=== PATIENT | female | born 1990 | race Caucasian/White ===

== ENCOUNTER 2016-04-22 00:42 | Emergency (ER) | payer BC, SELFPAY ==
[~2016-04-22] VITALS: Ht 165.1 cm; Wt 57.2 kg
[2016-04-22] MEDS ORDERED: [UNRECOGNIZED DRUG - OTHER] (01:07)
[2016-04-22] MEDS ORDERED: WATETAB PO (01:08)
[2016-04-22] MEDS ORDERED: LIDO1SOL7 OR (02:22)
[2016-04-22] MEDS ORDERED: PRED20TA PO (02:22)
[2016-04-22] MEDS ORDERED: AMOX500C PO (02:22)
[2016-04-22] MEDS: AMOXICILLIN 500 MG CAP PO ONE (02:40)
[2016-04-22 02:51] VITALS: BP 114/63
== END 2016-04-22 02:58 | disposition home or self-care (01) ==
LOC: M ED 02:45
DX: J04.0 Acute laryngitis (principal)

== ENCOUNTER → 2016-11-10 | Outpatient (CLI) | payer OTHER ==
[~2016-11-10] MED LIST: AMOX500C PO; LIDO1SOL7 OR; PRED20TA PO; WATETAB PO; [UNRECOGNIZED DRUG - OTHER]
[2016-11-10 09:58] LABS: MEAN CORPUSCULAR HEMOGLOBIN 30.5 pg (27.0-33.0); MEAN CORPUSCULAR HGB CONC 33.8 g/dl (32.0-36.5); MEAN CORPUSCULAR VOLUME 90.3 fl (80.0-96.0); RED CELL DISTRIBUTION WIDTH 11.9 % (11.5-14.5); WHITE BLOOD COUNT 4.3 10^3/uL (4.0-10.0)
[2016-11-10 10:44] LABS: ALBUMIN 4.1 GM/DL (3.2-5.2); ALBUMIN/GLOBULIN RATIO 1.28 (1.00-1.93); ALKALINE PHOSPHATASE 54 U/L (45-117); ALT/SGPT 14 U/L (12-78); ANION GAP 7 MEQ/L (8-16); AST/SGOT 9 U/L (15-37); BILIRUBIN,TOTAL 0.6 MG/DL (0.2-1.0); BLOOD UREA NITROGEN 10 MG/DL (7-18); CALCIUM LEVEL 9.1 MG/DL (8.5-10.1); CARBON DIOXIDE LEVEL 25 MEQ/L (21-32); CHLORIDE LEVEL 107 MEQ/L (98-107); CHOLESTEROL LEVEL 197 MG/DL (<200); CREATININE FOR GFR 0.71 MG/DL (0.55-1.02); GLOMERULAR FILTRATION RATE > 60.0 (>60); GLUCOSE, FASTING 83 MG/DL (70-105); POTASSIUM SERUM 4.2 MEQ/L (3.5-5.1); SODIUM LEVEL 139 MEQ/L (136-145); TOTAL PROTEIN 7.3 GM/DL (6.4-8.2); TRIGLYCERIDES LEVEL 38 MG/DL (<150)
== END ==
LOC: M LAB 09:00
PROVIDERS: ATTEND Family Medicine
DX: D64.9 Anemia, unspecified (principal); R53.83 Other fatigue

== ENCOUNTER 2017-01-17 08:45 | Emergency (ER) | payer OTHER ==
[~2017-01-17] VITALS: Ht 165.1 cm; Wt 56.0 kg
[2017-01-17] MEDS ORDERED: DIFL150T PO (09:01)
[2017-01-17] MEDS ORDERED: XANA1TAB2 PO (09:01)
[2017-01-17 09:39] LABS: BASO # 0.1 10^3/uL (0.0-0.2); BASO % 0.9 % (0.0-1.0); EOS # 0.1 10^3/uL (0.0-0.50); EOS % 1.6 % (0.0-3.0); IMMATURE GRANULOCYTE % 0.4 % (0-0); LYMPH # 1.6 10^3/uL (1.5-6.5); LYMPH % 29.9 % (24.0-44.0); MEAN CORPUSCULAR HEMOGLOBIN 30.9 pg (27.0-33.0); MEAN CORPUSCULAR HGB CONC 33.6 g/dl (32.0-36.5); MEAN CORPUSCULAR VOLUME 92.2 fl (80.0-96.0); MONO # 0.6 10^3/uL (0.0-0.8); NEUTROPHILS # 3.1 10^3/uL (1.8-7.7); NEUTROPHILS % 57.2 % (36.0-66.0); PLATELET COUNT, AUTOMATED 232 10^3/uL (150-450); RED CELL DISTRIBUTION WIDTH 12.5 % (11.5-14.5); WHITE BLOOD COUNT 5.5 10^3/uL (4.0-10.0)
[2017-01-17 09:43] LABS: CONTROL LINE UCG INT CTR LINE PRESENT
[2017-01-17 10:24] LABS: ALBUMIN 3.8 GM/DL (3.2-5.2); ALBUMIN/GLOBULIN RATIO 0.95 (1.00-1.93); ALKALINE PHOSPHATASE 67 U/L (45-117); ALT/SGPT 15 U/L (12-78); AMYLASE 45 U/L (25-115); ANION GAP 4 MEQ/L (8-16); AST/SGOT 8 U/L (7-37); BILIRUBIN,DIRECT 0.1 MG/DL (0.0-0.2); BILIRUBIN,TOTAL 0.4 MG/DL (0.2-1.0); BLOOD UREA NITROGEN 11 MG/DL (7-18); CALCIUM LEVEL 8.9 MG/DL (8.5-10.1); CARBON DIOXIDE LEVEL 30 MEQ/L (21-32); CHLORIDE LEVEL 104 MEQ/L (98-107); CREATININE FOR GFR 0.62 MG/DL (0.55-1.02); GLOMERULAR FILTRATION RATE > 60.0 (>60); GLUCOSE, FASTING 79 MG/DL (70-105); POTASSIUM SERUM 4.2 MEQ/L (3.5-5.1); SODIUM LEVEL 138 MEQ/L (136-145); TOTAL PROTEIN 7.8 GM/DL (6.4-8.2)
--- NOTE | 2017-01-17 10:54 | REP ---
Limited abdominal wall ultrasound: 01/17/2017. Clinical history: Umbilical hernia. The patient had hernia mesh placed 1 year ago with umbilical region. Findings: The exam is quite limited due to inability to penetrate the mesh for hernia repair. There is no gross hernia seen. A slightly hyperechoic 9 x 5 x 6 mm area is seen in the umbilical region with shadowing of mass deep to it noted. There is no bowel herniation in this region. This could be just postsurgical change versus other. Impression: 1. Very limited examination. Patient with mesh placed during umbilical hernia surgery 1 year ago and slightly hyperechoic 9 x 5 x 6 mm area in the umbilicus with the mesh deep to it. This causes shadowing and limited evaluation. It could be just some postoperative change. There is no peristalsis in this slightly hyperechoic area. No definite bowel herniation currently. Signed by Magdiel Dunaway MD 01/18/2017 07:09 P
--- NOTE | 2017-01-17 11:10 | REP ---
PELVIC ULTRASOUND AND ENDOVAGINAL PROBE ULTRASOUND: 01/17/2017 CLINICAL HISTORY: Left-sided pelvic pain monthly with periods for 4 years. Transabdominal and vaginal probes were utilized. The bladder measured 8.9 x 6 x 4.2 cm. The uterus is anteverted and is 9 x 4.1 x 5.3 cm. It has a central endometrial echogenic stripe, which appears fairly homogeneous in thickness of 9 mm is seen. No fluid in the endometrial cavity or endocervical canal. No uterine mass or contour abnormality. The right ovary is 2.7 x 1.7 x 1.6 cm. It shows Doppler resistive index as 0.59 with normal forward diastolic flow. There is no mass involving the right ovary, nodule, cyst or adjacent fluid. There is trace amount of fluid in the cul-de-sac and in the endocervical canal. The left ovary 3.3 x 2.2 x 2.6 cm. It also shows normal Doppler tracing with resistive index 0.67 . In that left ovary is a 1.8 x 1.6 x 1.2 cm finding consistent with a hemorrhagic follicle. There are no other significant findings. IMPRESSION: 1. Hemorrhagic follicle left ovary 1.8 x 1.6 cm. Trace amount of free fluid in the cul-de-sac. Both ovaries otherwise normal size and echogenicity. 2. The uterus anteverted, not enlarged with normal endometrial echogenic stripe, thickness of 9 mm and trace fluid in the endocervical canal. 3. Both ovaries show normal Doppler tracings and the right ovary without mass or cyst. Signed by Magdiel Dunaway MD 01/18/2017 07:16 P
[2017-01-17 11:23] VITALS: BP 101/67
--- NOTE | 2017-01-19 08:12 | ED PDOC ---
Post-Departure Follow-Up radiology report faxed to Kelly Awad MD Jan 19, 2017 08:12
== END 2017-01-17 11:22 | disposition home or self-care (01) ==
LOC: M ED 08:45
DX: R10.33 Periumbilical pain (principal); N83.02 Follicular cyst of left ovary; R11.2 Nausea with vomiting, unspecified; R19.7 Diarrhea, unspecified; F41.9 Anxiety disorder, unspecified; Z79.899 Other long term (current) drug therapy; Z79.2 Long term (current) use of antibiotics

== ENCOUNTER → 2017-02-03 | Outpatient (CLI) | payer OTHER ==
[~2017-02-03] MED LIST changes: +CIPR500T19 PO; +DIFL150T PO; +FLAG500T PO; +FLUC150T PO; +GASTROGRAFIN SOLUTION 30ML (Q9963) As Ordered ONE; +ISOVUE-370 76% 100ML VIAL (Q9967) As Ordered ONE; +NORCOTAB PO; +REGL10TA6 PO; +XANA1TAB2 PO; +XANA3TAB PO
--- NOTE | 2017-02-04 05:52 | REP ---
PRE- AND POST CT OF THE ABDOMEN AND PELVIS: CLINICAL: History of umbilical hernia repair with periumbilical pain, evaluate for recurrence. COMPARISON: None. TECHNIQUE: Axial contrast enhanced images from the lung bases to the pubic symphysis using oral (per protocol) and 100 mL Isovue 370 intravenous contrast material with pre-contrast images of the abdomen as well as coronal and sagittal reformations. FINDINGS: Lung bases are clear. Visualized heart and pericardium normal. Liver, spleen, pancreas, gallbladder, bilateral adrenal glands and kidneys are normal. The enteric system is without obstruction or acute inflammatory process and a normal terminal ileum and appendix are identified in the right lower quadrant. Pelvis demonstrates normal bladder and age appropriate uterus/adnexa. No pelvic fluid or ascites. No free air. No adenopathy. No mass lesion. Small amount of granulation tissue is identified likely related to prior umbilical hernia repair. There is no new hernia, fluid collection or significant abnormality in the periumbilical region. Vasculature including abdominal aorta and branch vessels appear normal. Surrounding musculoskeletal structures are intact. IMPRESSION: 1. Small amount of granulation tissue in the periumbilical region consistent with prior umbilical hernia repair. No recurrent hernia, fluid collection or abnormality identified in the periumbilical region. 2. Remainder of the abdomen and pelvis appear normal. Signed by Otto Ramirez MD 02/05/2017 08:46 A
== END ==
LOC: M RAD 08:17
PROVIDERS: ATTEND Surgery
DX: K42.9 Umbilical hernia without obstruction or gangrene (principal)
CPT/HCPCS: 74178; Q9963; Q9967

== ENCOUNTER 2017-02-07 11:29 | Emergency (ER) | payer OTHER ==
[2017-02-07] MEDS: NS 500 ML IV (11:45)
[2017-02-07] MEDS: ONDANSETRON 4MG/2ML VIAL (J2405) IV (12:00)
[2017-02-07 12:03] LABS: BASO % 0.2 % (0.0-1.0); EOS % 0.1 % (0.0-3.0); IMMATURE GRANULOCYTE % 0.2 % (0-0); LYMPH # 0.7 10^3/uL (1.5-6.5); LYMPH % 8.2 % (24.0-44.0); MEAN CORPUSCULAR HGB CONC 34.7 g/dl (32.0-36.5); MEAN CORPUSCULAR VOLUME 89.3 fl (80.0-96.0); MONO # 0.7 10^3/uL (0.0-0.8); MONO % 8.5 % (0.0-5.0); NEUTROPHILS # 7.1 10^3/uL (1.8-7.7); NEUTROPHILS % 82.8 % (36.0-66.0); PLATELET COUNT, AUTOMATED 243 10^3/uL (150-450); RED CELL DISTRIBUTION WIDTH 12.5 % (11.5-14.5); WHITE BLOOD COUNT 8.6 10^3/uL (4.0-10.0)
[2017-02-07 12:27] LABS: CONTROL LINE HCG INT CTR LINE PRESENT
[2017-02-07] MEDS ORDERED: ISOVUE-370 76% 100ML VIAL (Q9967) As Ordered (12:33)
[2017-02-07 12:35] LABS: LACTIC ACID SEPSIS PROTOCOL 1.3 MMOL/L (0.4-2.0)
[2017-02-07 12:35] LABS: ALBUMIN 3.9 GM/DL (3.2-5.2); ALKALINE PHOSPHATASE 76 U/L (45-117); ALT/SGPT 15 U/L (12-78); ANION GAP 8 MEQ/L (8-16); AST/SGOT 11 U/L (7-37); BILIRUBIN,DIRECT 0.2 MG/DL (0.0-0.2); BILIRUBIN,TOTAL 0.7 MG/DL (0.2-1.0); BLOOD UREA NITROGEN 7 MG/DL (7-18); CALCIUM LEVEL 8.9 MG/DL (8.5-10.1); CARBON DIOXIDE LEVEL 24 MEQ/L (21-32); CHLORIDE LEVEL 104 MEQ/L (98-107); CREATININE FOR GFR 0.75 MG/DL (0.55-1.02); GLOMERULAR FILTRATION RATE > 60.0 (>60); GLUCOSE, FASTING 99 MG/DL (70-105); POTASSIUM SERUM 3.8 MEQ/L (3.5-5.1); SODIUM LEVEL 136 MEQ/L (136-145); TOTAL PROTEIN 7.8 GM/DL (6.4-8.2)
[2017-02-07] MEDS: KETOROLAC 30 MG/ML VIAL (J1885) IV (12:42)
[2017-02-07 12:43] LABS: KETONE, URINE AUTO RFX TRACE mg/dL (NEGATIVE); NITRITE, URINE AUTO RFX NEGATIVE (NEGATIVE); RBC, URINE AUTO RFX 2 /HPF (0-3); SPECIFIC GRAVITY UR AUTO RFX 1.011 (1.002-1.035); SQUAM EPITHELIAL CELL UR AURFX 1 /HPF (0-6)
[2017-02-07 12:50] LABS: LEUKOCYTE ESTERASE UR AUTO RFX 3+ (NEGATIVE); WBC, URINE AUTO RFX TNTC /HPF (0-3)
[2017-02-07] MEDS: CIPROFLOXACIN 400 MG in APPROPRIATE DILUENT 1 EA IV (13:30)
[2017-02-07] MEDS: ACETAMINOPHEN 325 MG TAB PO (13:45)
[2017-02-07] MEDS: NS 1,000 ML IV (14:30)
[2017-02-07] MEDS: fentaNYL 100 MCG/2 ML INJECTION (J3010) IV (15:00)
[2017-02-07] MEDS: CIPROFLOXACIN 500 MG TAB PO (16:20)
== END 2017-02-07 16:32 | disposition home or self-care (01) ==
LOC: M ED 11:29
DX: N10 Acute pyelonephritis (principal); N80.9 Endometriosis, unspecified; E16.2 Hypoglycemia, unspecified; F41.9 Anxiety disorder, unspecified; Z96.9 Presence of functional implant, unspecified; Z98.890 Other specified postprocedural states; Z87.42 Personal history of other diseases of the female genital tract
CPT/HCPCS: J2405

== ENCOUNTER 2017-02-08 03:49 | Emergency (ER) | payer OTHER ==
[2017-02-08] MEDS: NS 1,000 ML IV ×2 (07:15→09:00)
[2017-02-08 07:51] LABS: BASO % 0.2 % (0.0-1.0); IMMATURE GRANULOCYTE % 0.3 % (0-0); LYMPH % 9.2 % (24.0-44.0); MEAN CORPUSCULAR HEMOGLOBIN 30.8 pg (27.0-33.0); MEAN CORPUSCULAR HGB CONC 34.3 g/dl (32.0-36.5); MEAN CORPUSCULAR VOLUME 89.7 fl (80.0-96.0); MONO # 1.2 10^3/uL (0.0-0.8); MONO % 11.6 % (0.0-5.0); NEUTROPHILS # 8.4 10^3/uL (1.8-7.7); NEUTROPHILS % 78.7 % (36.0-66.0); PLATELET COUNT, AUTOMATED 195 10^3/uL (150-450); RED CELL DISTRIBUTION WIDTH 12.5 % (11.5-14.5); WHITE BLOOD COUNT 10.7 10^3/uL (4.0-10.0)
[2017-02-08] MEDS: KETOROLAC 30 MG/ML VIAL (J1885) IV (08:13)
[2017-02-08] MEDS: ACETAMINOPHEN 325 MG TAB PO (08:15)
[2017-02-08 08:19] LABS: ANION GAP 10 MEQ/L (8-16); BLOOD UREA NITROGEN 6 MG/DL (7-18); CALCIUM LEVEL 7.9 MG/DL (8.5-10.1); CARBON DIOXIDE LEVEL 23 MEQ/L (21-32); CHLORIDE LEVEL 107 MEQ/L (98-107); CREATININE FOR GFR 0.77 MG/DL (0.55-1.02); GLOMERULAR FILTRATION RATE > 60.0 (>60); GLUCOSE, FASTING 119 MG/DL (70-105); POTASSIUM SERUM 3.4 MEQ/L (3.5-5.1); SODIUM LEVEL 140 MEQ/L (136-145)
[2017-02-08 08:23] LABS: LACTIC ACID SEPSIS PROTOCOL 0.7 MMOL/L (0.4-2.0)
[2017-02-08] MEDS: CEFTRIAXONE SOD 1 GM in APPROPRIATE DILUENT 1 EA IV (09:00)
[2017-02-08 09:11] LABS: KETONE, URINE AUTO RFX 1+ mg/dL (NEGATIVE); MUCUS, URINE RFX SMALL (NEGATIVE); NITRITE, URINE AUTO RFX NEGATIVE (NEGATIVE); RBC, URINE AUTO RFX 2 /HPF (0-3); SPECIFIC GRAVITY UR AUTO RFX 1.014 (1.002-1.035); SQUAM EPITHELIAL CELL UR AURFX 6 /HPF (0-6)
[2017-02-08 09:50] LABS: LEUKOCYTE ESTERASE UR AUTO RFX TRACE (NEGATIVE); WBC, URINE AUTO RFX 12 /HPF (0-3)
[2017-02-08] MEDS: MORPHINE 2 MG/ML 1ML SYRINGE IV (11:02)
== END 2017-02-08 11:30 | disposition home or self-care (01) ==
LOC: M ED 03:49
DX: N10 Acute pyelonephritis (principal); N76.0 Acute vaginitis; F41.9 Anxiety disorder, unspecified; F33.9 Major depressive disorder, recurrent, unspecified; Z79.2 Long term (current) use of antibiotics
CPT/HCPCS: J1885

== ENCOUNTER 2017-03-05 16:33 | Emergency (ER) | payer OTHER ==
[2017-03-05 17:20] LABS: HEMATOCRIT 42.8 % (36.0-47.0); HEMOGLOBIN 14.7 g/dl (12.0-16.0); MEAN CORPUSCULAR HEMOGLOBIN 30.9 pg (27.0-33.0); MEAN CORPUSCULAR HGB CONC 34.3 g/dl (32.0-36.5); MEAN CORPUSCULAR VOLUME 89.9 fl (80.0-96.0); PLATELET COUNT, AUTOMATED 195 10^3/uL (150-450); RED BLOOD COUNT 4.76 10^6/uL (4.00-5.40); RED CELL DISTRIBUTION WIDTH 12.6 % (11.5-14.5); WHITE BLOOD COUNT 5.1 10^3/uL (4.0-10.0)
[2017-03-05 17:41] LABS: CONTROL LINE HCG INT CTR LINE PRESENT; HCG, SERUM QUALITATIVE NEGATIVE (NEGATIVE)
[2017-03-05 17:47] LABS: AMPHETAMINES LEVEL URINE NEGATIVE (NEGATIVE); BARBITURATES URINE NEGATIVE (NEGATIVE); BENZODIAZEPINES URINE POSITIVE (NEGATIVE); CANNABINOIDS URINE NEGATIVE (NEGATIVE); COCAINE METABOLITE URINE NEGATIVE (NEGATIVE); METHADONE URINE NEGATIVE (NEGATIVE); OPIATES URINE NEGATIVE (NEGATIVE); PHENCYCLIDINE URINE NEGATIVE (NEGATIVE)
[2017-03-05 17:56] LABS: ALBUMIN 4.1 GM/DL (3.2-5.2); ALBUMIN/GLOBULIN RATIO 1.32 (1.00-1.93); ALKALINE PHOSPHATASE 59 U/L (45-117); ALT/SGPT 92 U/L (12-78); ANION GAP 9 MEQ/L (8-16); AST/SGOT 329 U/L (7-37); BILIRUBIN,DIRECT 0.2 MG/DL (0.0-0.2); BILIRUBIN,TOTAL 0.5 MG/DL (0.2-1.0); BLOOD UREA NITROGEN 3 MG/DL (7-18); CALCIUM LEVEL 8.4 MG/DL (8.5-10.1); CARBON DIOXIDE LEVEL 27 MEQ/L (21-32); CHLORIDE LEVEL 108 MEQ/L (98-107); CREATININE FOR GFR 0.66 MG/DL (0.55-1.02); ETHYL ALCOHOL (ETHANOL) 0.177 % (0.000-0.010); GLOMERULAR FILTRATION RATE > 60.0 (>60); GLUCOSE, FASTING 86 MG/DL (70-105); POTASSIUM SERUM 3.8 MEQ/L (3.5-5.1); SALICYLATE LEVEL < 1.7 MG/DL (5.0-30.0); SODIUM LEVEL 144 MEQ/L (136-145); THYROID STIMULATING HORMONE 0.802 uIU/ML (0.358-3.740); TOTAL PROTEIN 7.2 GM/DL (6.4-8.2)
[2017-03-05 18:00] LABS: ACETAMINOPHEN LEVEL < 2.0 UG/ML (10.0-30.0)
== END 2017-03-05 23:49 | disposition home or self-care (01) ==
LOC: M ED 16:33
DX: F43.0 Acute stress reaction (principal); F32.9 Major depressive disorder, single episode, unspecified; R45.851 Suicidal ideations; F41.9 Anxiety disorder, unspecified
CPT/HCPCS: 80320

== ENCOUNTER 2017-03-22 13:53 | Day surgery (SDC) | payer OTHER ==
[2017-03-22] MEDS ORDERED: CEFAZOLIN 100MG/ML SYRINGE 1GM(J0690 PER 500MG) As Ordered (14:04)
[2017-03-22] MEDS ORDERED: fentaNYL 100 MCG/2 ML INJECTION (J3010) As Ordered ×2 (14:25→16:31)
[2017-03-22] MEDS ORDERED: MIDAZOLAM INJ 2 MG/2 ML VIAL (J2250) As Ordered ×2 (14:25→16:31)
[2017-03-22] MEDS ORDERED: LR 1,000 ML IV ×3 (14:30→17:00)
[2017-03-22] MEDS ORDERED: dexameTHASONE 4 MG/ML 1ML VIAL (J1100) As Ordered (15:15)
[2017-03-22] MEDS ORDERED: LIDOCAINE 2% INJ 100 MG/5 ML SDV (FOR ANES.) As Ordered (15:15)
[2017-03-22] MEDS ORDERED: PROPOFOL 200 MG/20 ML VIAL As Ordered (15:15)
[2017-03-22] MEDS ORDERED: ROCURONIUM BROMIDE 50 MG/5 ML VIAL As Ordered (15:15)
[2017-03-22] MEDS ORDERED: KETOROLAC 60 MG/2 ML VIAL (J1885) As Ordered (15:23)
[2017-03-22] MEDS ORDERED: ONDANSETRON 4MG/2ML VIAL (J2405) As Ordered (15:23)
[2017-03-22] MEDS: CEFAZOLIN SOD 1 GM in APPROPRIATE DILUENT 1 EA IV (15:24)
[2017-03-22] MEDS: BUPIVACAINE LIPOSOME/PF 1.3% 20 ML VIAL (13.3MG/ML)(EXPAREL) As Ordered (15:26)
[2017-03-22] MEDS: LIDOCAINE W/EPINEPHRINE 1% 20ML VIAL As Ordered (15:26)
[2017-03-22] MEDS: BUPIVACAINE HCL 0.25% 30 ML VIAL As Ordered (15:26)
[2017-03-22] MEDS ORDERED: GLYCOPYRROLATE INJ 0.2 MG/ML 2 ML VIAL As Ordered ×2 (15:30)
[2017-03-22] MEDS ORDERED: NORCO, ANEXSIA 5/325MG TABLET (HYDROcodone/ACETAMINOPHEN) As Ordered (16:18)
[2017-03-22] MEDS: NORCO, ANEXSIA 5/325MG TABLET (HYDROcodone/ACETAMINOPHEN) PO ×2 (16:20→17:15)
[2017-03-22] MEDS ORDERED: PERCOCET 5MG/325MG TAB PO (16:45)
[2017-03-22] MEDS ORDERED: ONDANSETRON 4MG/2ML VIAL (J2405) IV ×2 (16:45→17:00)
[2017-03-22] MEDS: fentaNYL 100 MCG/2 ML INJECTION (J3010) IV (17:00)
[2017-03-22] MEDS ORDERED: MORPHINE 2 MG/ML 1ML SYRINGE IV (17:00)
[2017-03-22] MEDS ORDERED: KETOROLAC 30 MG/ML VIAL (J1885) IV (18:00)
== END 2017-03-22 19:52 | disposition home or self-care (01) ==
LOC: M SDC 13:53
DX: K42.9 Umbilical hernia without obstruction or gangrene (principal); E16.2 Hypoglycemia, unspecified; I49.9 Cardiac arrhythmia, unspecified; R29.898 Other symptoms and signs involving the musculoskeletal system; F41.0 Panic disorder [episodic paroxysmal anxiety]; G47.9 Sleep disorder, unspecified; Z87.440 Personal history of urinary (tract) infections; Z98.51 Tubal ligation status
CPT/HCPCS: 49585

== ENCOUNTER 2017-11-27 18:44 | Emergency (ER) | payer OTHER ==
[2017-11-27 19:26] LABS: KETONE, URINE AUTO RFX NEGATIVE (NEGATIVE); LEUKOCYTE ESTERASE UR AUTO RFX NEGATIVE (NEGATIVE); MUCUS, URINE RFX SMALL (NEGATIVE); NITRITE, URINE AUTO RFX NEGATIVE (NEGATIVE); RBC, URINE AUTO RFX 1 /HPF (0-3); SPECIFIC GRAVITY UR AUTO RFX 1.017 (1.002-1.035); SQUAM EPITHELIAL CELL UR AURFX 6 /HPF (0-6); WBC, URINE AUTO RFX 0 /HPF (0-3)
== END 2017-11-27 20:24 | disposition home or self-care (01) ==
LOC: M ED 18:44
DX: R10.9 Unspecified abdominal pain (principal); S20.219A Contusion of unspecified front wall of thorax, initial encounter; X58.XXXA Exposure to other specified factors, initial encounter; Y92.9 Unspecified place or not applicable; Y93.9 Activity, unspecified; Y99.9 Unspecified external cause status; Z87.440 Personal history of urinary (tract) infections
CPT/HCPCS: 71046

== ENCOUNTER 2017-12-11 12:04 | Emergency (ER) | payer OTHER | END 2017-12-11 13:35 | disposition home or self-care (01) | LOC: M ED 12:04 | DX: S60.221A Contusion of right hand, initial encounter (principal); W22.09XA Striking against other stationary object, initial encounter; Y92.098 Other place in other non-institutional residence as the place of occurrence of the external cause | CPT/HCPCS: 73110 ==

== ENCOUNTER → 2017-12-15 | Outpatient (REF) | payer OTHER | LOC: M LAB REF 12:05 | DX: J03.90 Acute tonsillitis, unspecified (principal) ==

== ENCOUNTER 2018-02-25 04:09 | Day surgery (SDC) | payer OTHER ==
[2018-02-25] VITALS (9 sets, daily range): BP systolic 98–127; BP diastolic 53–62
[~2018-02-25] VITALS: Ht 165.1 cm; Wt 63.6 kg
[~2018-02-25 04:09] MED LIST changes: -GASTROGRAFIN SOLUTION 30ML (Q9963) As Ordered ONE; +IBUP-1022 PO; -ISOVUE-370 76% 100ML VIAL (Q9967) As Ordered ONE
[2018-02-25] MEDS ORDERED: DIUR3TAB PO (04:12)
[2018-02-25] MEDS ORDERED: NS 1,000 ML IV ONE (05:30)
[2018-02-25] MEDS ORDERED: ONDANSETRON 4MG/2ML VIAL (J2405) IV ONE ×2 (05:30→09:15)
[2018-02-25] MEDS ORDERED: MORPHINE 4 MG/ML 1ML VIAL/SYRINGE (J2270) IV PRN (05:30)
[2018-02-25 05:41] LABS: BASO % 0.3 % (0.0-1.0); EOS # 0.1 10^3/uL (0.0-0.50); EOS % 1.3 % (0.0-3.0); HEMATOCRIT 43.2 % (36.0-47.0); HEMOGLOBIN 14.7 g/dl (12.0-15.5); LYMPH % 21.1 % (24.0-44.0); MEAN CORPUSCULAR HEMOGLOBIN 31.2 pg (27.0-33.0); MEAN CORPUSCULAR VOLUME 91.7 fl (80.0-96.0); MONO # 0.8 10^3/uL (0.0-0.8); MONO % 8.7 % (0.0-5.0); NEUTROPHILS # 6.4 10^3/uL (1.8-7.7); NEUTROPHILS % 68.3 % (36.0-66.0); PLATELET COUNT, AUTOMATED 206 10^3/uL (150-450); RED BLOOD COUNT 4.71 10^6/uL (4.00-5.40); WHITE BLOOD COUNT 9.4 10^3/uL (4.0-10.0)
[2018-02-25] MEDS: GASTROGRAFIN SOLUTION 30ML PO SCH ×2 (05:44→06:10)
[2018-02-25 06:28] LABS: HCG, SERUM QUALITATIVE NEGATIVE (NEGATIVE)
[2018-02-25 06:36] LABS: ALBUMIN 3.6 GM/DL (3.2-5.2); ALT/SGPT 16 U/L (12-78); BILIRUBIN,DIRECT 0.1 MG/DL (0.0-0.2); BILIRUBIN,TOTAL 0.5 MG/DL (0.2-1.0); BLOOD UREA NITROGEN 12 MG/DL (7-18); CALCIUM LEVEL 8.6 MG/DL (8.5-10.1); CARBON DIOXIDE LEVEL 23 MEQ/L (21-32); CHLORIDE LEVEL 106 MEQ/L (98-107); CREATININE FOR GFR 0.69 MG/DL (0.55-1.30); GLOMERULAR FILTRATION RATE > 60.0 (>60); GLUCOSE, FASTING 83 MG/DL (70-100); LIPASE 139 U/L (73-393); POTASSIUM SERUM 4.1 MEQ/L (3.5-5.1); SODIUM LEVEL 138 MEQ/L (136-145); TOTAL PROTEIN 6.9 GM/DL (6.4-8.2)
[2018-02-25] MEDS ORDERED: ISOVUE-370 76% 100ML VIAL (Q9967) As Ordered ONE (07:39)
--- NOTE | 2018-02-25 08:10 | REP ---
CT abdomen and pelvis with IV and oral contrast: History: Right upper and lower quadrant pain. Comparison CT study February 07, 2017. CT contrast dose: 100 ml of intravenous Isovue 370. CT findings: Preliminary digital box car bracer radiograph is unremarkable. The lung bases are clear on axial CT images. The liver and the spleen are normal in size homogeneous in texture. No adrenal lesion is seen. Pancreas is unremarkable. The gallbladder shows no CT abnormality. The kidneys enhance symmetrically and are morphologically intact. No retroperitoneal mass or adenopathy is observed. Small and large intestinal bowel loops are normal in the upper abdomen. Pelvic CT images demonstrate dilation of the appendix with mural thickening, enhancement, jeanne appendiceal fluid, and an appendicolith consistent with acute appendicitis. There is no evidence of abscess. There is a small quantity of free fluid in the pelvic reflections in the cul-de-sac, however. The uterus is tipped to the right but unremarkable. No significant adnexal abnormality. Urinary bladder is intact. No abdominal wall defect is seen. Bone window settings show no significant bony abnormality. Impression: CT findings consistent with acute appendicitis. There is minimal ascites in the cul-de-sac. There is no evidence of abscess or free air. Electronically Signed by Christopher Persaud MD 02/25/2018 08:01 A
[2018-02-25] MEDS ORDERED: NS 1,000 ML IV SCH (08:12)
[2018-02-25] MEDS ORDERED: PIPERACILLIN/TAZOBACTAM SOD 3.375 GM in D5W MINI-BAG PLUS 50 ML IV ONE (08:15)
[2018-02-25] MEDS ORDERED: MORPHINE 4 MG/ML 1ML VIAL/SYRINGE (J2270) IV ONE (09:15)
[2018-02-25] MEDS ORDERED: BUPIVACAINE HCL 0.25% 10 ML VIAL As Ordered ONE (10:02)
[2018-02-25] MEDS ORDERED: LIDOCAINE 1% MDV 20ML VIAL As Ordered ONE (10:02)
--- NOTE | 2018-02-25 10:25 | HPEPDOC ---
General Surgery H&P Date of Admission Feb 25, 2018 Attending Physician: MAGUI MONCADA MD History and Physical CHIEF COMPLAINT: abdominal pain HISTORY OF PRESENT ILLNESS: Patient presents to the ED roughly at 4 am this morning with overnight history of right sided abdominal pain radiating to her right flank area associated with prominent nausea and a couple episodes of bilious vomiting. She denies any fever, dysuria, hematuria or any sick contacts. She reports she was drinking heavily this week due to some personal problems ( 2 bottles of vodka in 2 days on tuesday and tuesday). Last alcohol intake was 2 days ago. ALLERGIES: Please see below. HOME MEDICATIONS: Please see below. PAST MEDICAL HISTORY: 1. h/o pyelonephritis. 2. . PAST SURGICAL HISTORY: 1. 2 c sections. 2. umbilical hernia repair, open x 2 (removal of mesh on 2nd operation). PERSONAL/SOCIAL HISTORY: Patient reports she drinks a glass of vodka and wine daily, She has been drinking a lot this week (2 bottles of vodka earlier this we ek) last alcohol intake two days ago. She denies smoking, marijuana use, recreational drug use. REVIEW OF SYSTEMS: GENERAL: Denies chills, fatigue, fever, weight gain and weight loss. HEENT: [Denies blurred vision and double vision. Denies ear symptoms. Denies hoarseness]. NECK: [Denies any neck pain]. CARDIOVASCULAR: [Denies chest pain and palpitations]. MUSCULOSKELETAL: [Denies arthralgias, back pain and thrombophlebitis]. SKIN: [Denies rash]. NEUROLOGIC: [Denies headache, stroke and transient ischemic attack]. PSYCHIATRIC: [Denies anxiety and depression]. ENDOCRINE: [Denies thyroid disease]. HEMATOLOGY/ONCOLOGY: [Denies any bleeding or clotting disorder]. HEART: [Denies any chest pains, palpitations, paroxysmal dyspnea, orthopnea]. PULMONARY: [Denies chronic cough, dyspnea and wheezing]. GASTROINTESTINAL: [Denies rectal bleeding, family history of colon cancer, constipation, diarrhea, dysphagia, heartburn and jaundice]. GENITOURINARY: [Denies dysuria, frequency, hematuria and nocturia]. ENDOCRINE: [Denies polydipsia, polyphagia, polyuria, heat or cold intolerance]. INFECTIOUS: [Denies any recent upper respiratory tract infection, UTI, need for use of antibiotics]. NUTRITION: [Reports good appetite]. PHYSICAL EXAMINATION: VITAL SIGNS: Please see below. GENERAL APPEARANCE: [Patient seen at bedside, appears comfortable]. [Awake, alert, oriented]. HEENT: [Normocephalic, atraumatic. [place] palpebral conjunctivae. Anicteric sclerae. Lips moist]. CHEST: [No chest wall abnormalities. Normal respiratory motion/effort]. NECK: [Supple. No thyromegaly. No lymphadenopathies]. LUNGS: [Lung sounds are clear to auscultation bilaterally. No wheezing appreciated]. HEART: [No chest wall abnormalities. Heart rate and rhythm are regular with no murmurs]. ABDOMEN: [Abdomen is relatively flat, soft,nondistended. She has a healed periumbilical surgical scar, pfannensteil scar. No noticeable hernia at those sites. Mild tender to palpation over right lower quadrant area, mild guarding on RLQ area. Nontender]. SKIN: Warm, moist. EXTREMITIES: [Extremities have no deformities. No edema identified]. NEUROLOGICAL: . ANCILLARIES: . LABORATORY DATA: Please see below. MICROBIOLOGY: Please see below. IMAGING: CT abdomen and pelvis Pelvic CT images demonstrate dilation of the appendix with mural thickening, enhancement, jeanne appendiceal fluid, and an appendicolith consistent with acute appendicitis. There is no evidence of abscess. There is a small quantity of free fluid in the pelvic reflections in the cul-de-sac, however. The uterus is tipped to the right but unremarkable. No significant adnexal abnormality. Urinary bladder is intact. No abdominal wall defect is seen. Bone window settings show no significant bony abnormality. IMPRESSION AND PLAN: Acute Appendicitis Patient's history, examination and workup (CT) consistent with acute appendicitis. I advised her of her options of therapy which includes both surgical and nonsurgical therapy. She is otherwise young and healthy and I recommend for her to undergo laparoscopic appendectomy. I discussed with her the details of performing the procedure; its risks and benefits, and expected postoperative course. Risks include those of anesthesia, wound infection, infection inside the abdomen, abscess formation, injury to nearby structures include bowels and vascular injury. Consent obtained from the patient. She has received a dose of zosyn 3.375 gms IV preoperatively in the ER. Vital Signs Vital Signs Date Time Temp Pulse Resp B/P (MAP) Pulse Ox O2 Delivery O2 Flow Rate FiO2 02/25/18 09:14 18 02/25/18 04:15 02/25/18 04:09 96.4 103 97 Room Air Laboratory Data Labs 24H Laboratory Tests 2 02/25/18 04:42: Urine Color YELLOW, Urine Appearance CLOUDYH, Urine pH 7.0, Urine Specific [place] 1.019, Urine Protein NEGATIVE, Urine Glucose (UA) NEGATIVE, Urine Ketones NEGATIVE, Urine Blood NEGATIVE, Urine Nitrite NEGATIVE, Urine Bilirubin NEGATIVE, Urine Urobilinogen 0.2, Urine Leukocyte Esterase NEGATIVE, Urine WBC (Auto) 1, Urine RBC (Auto) 1, Urine Hyaline Casts (Auto) 0, Urine Bacteria (Auto) NEGATIVE, Urine Squamous Epithelial Cells 7, Urine Amorphous Sediment SMALLH, Urine Sperm (Auto) 02/25/18 05:34: Immature Granulocyte % (Auto) 0.3, White Blood Count 9.4, Red Blood Count 4.71, Hemoglobin 14.7, Hematocrit 43.2, Mean Corpuscular Volume 91.7, Mean Corpuscular Hemoglobin 31.2, Mean Corpuscular Hemoglobin Concent 34.0, Red Cell Distribution Width 12.6, Platelet Count 206, Neutrophils (%) (Auto) 68.3H, Lymphocytes (%) (Auto) 21.1L, Monocytes (%) (Auto) 8.7H, Eosinophils (%) (Auto) 1.3, Basophils (%) (Auto) 0.3, Neutrophils # (Auto) 6.4, Lymphocytes # (Auto) 2.0, Monocytes # (Auto) 0.8, Eosinophils # (Auto) 0.1, Basophils # (Auto) 0.0, Nucleated Red Blood Cells % (auto) 0.0 02/25/18 06:03: Anion Gap 9, Glomerular Filtration Rate > 60.0, Calcium Level 8.6, Aspartate Amino Transf (AST/SGOT) 7, Alanine Aminotransferase (ALT/SGPT) 16, Alkaline Phosphatase 74, Total Bilirubin 0.5, Direct Bilirubin 0.1, Total Protein 6.9, Albumin 3.6, Albumin/Globulin Ratio 1.09, Lipase 139, Human Chorionic Gonadotropin, Qual NEGATIVE CBC/BMP Laboratory Tests 02/25/18 05:34 Red Blood Count 4.71, Mean Corpuscular Volume 91.7, Mean Corpuscular Hemoglobin 31.2, Mean Corpuscular Hemoglobin Concent 34.0, Red Cell Distribution Width 12.6, Neutrophils (%) (Auto) 68.3 H, Lymphocytes (%) (Auto) 21.1 L, Monocytes (%) (Auto) 8.7 H, Eosinophils (%) (Auto) 1.3, Basophils (%) (Auto) 0.3, Neutrophils # (Auto) 6.4, Lymphocytes # (Auto) 2.0, Monocytes # (Auto) 0.8, Eosinophils # (Auto) 0.1, Basophils # (Auto) 0.0 02/25/18 06:03 Microbiology Microbiology 02/25/18 Blood Culture, Received Pending 02/25/18 Blood Culture, Received Pending Home Medications Scheduled PRN (Diurex 50-162.5 mg) 1 Tab Tab, 1 TAB PO DAILY PRN for ADEMA, (Reported) Allergies Coded Allergies: No Known Drug Allergy (Verified Allergy, Unknown, 04/22/16) MAGUI MONCADA MD Feb 25, 2018 09:37
[2018-02-25] MEDS ORDERED: PROPOFOL 200 MG/20 ML VIAL As Ordered ONE (10:37)
[2018-02-25] MEDS ORDERED: ROCURONIUM BROMIDE 50 MG/5 ML VIAL As Ordered ONE (10:37)
[2018-02-25] MEDS ORDERED: LIDOCAINE 2% INJ 100 MG/5 ML SDV (FOR ANES.) As Ordered ONE (10:37)
[2018-02-25] MEDS ORDERED: dexameTHASONE 4 MG/ML 1ML VIAL (J1100) As Ordered ONE (10:37)
[2018-02-25] MEDS ORDERED: fentaNYL 100 MCG/2 ML INJECTION (J3010) As Ordered ONE (10:37)
[2018-02-25] MEDS ORDERED: MIDAZOLAM INJ 2 MG/2 ML VIAL (J2250) As Ordered ONE (10:37)
[2018-02-25] MEDS ORDERED: ONDANSETRON 4MG/2ML VIAL (J2405) As Ordered ONE (10:53)
[2018-02-25] MEDS ORDERED: KETOROLAC 60 MG/2 ML VIAL (J1885) As Ordered ONE (10:53)
[2018-02-25] MEDS ORDERED: NEOSTIGMINE 10 MG/10 ML VIAL (J2710) As Ordered ONE (10:54)
[2018-02-25] MEDS ORDERED: GLYCOPYRROLATE INJ 0.2 MG/ML 2 ML VIAL As Ordered ONE ×2 (10:54→10:56)
[2018-02-25] MEDS ORDERED: LR 1,000 ML IV SCH ×2 (11:18→11:45)
--- NOTE | 2018-02-25 11:18 | ROOPDOC ---
[facility] Report Of Operation Report of Operation DATE OF PROCEDURE: 02/25/18 PREPROCEDURE DIAGNOSES: acute Appendicitis. POSTPROCEDURE DIAGNOSES: Acute Appendicitis. PROCEDURE: Laparoscopic Appendectomy. SURGEON: Rey Clancy MD [employer]: none ANESTHESIA: General Anesthesia. ESTIMATED BLOOD LOSS: Approximately 5 mL. COMPLICATIONS: none. REMARKS: mild congested distal appendix., smooth liver, mild distended gallbladder, no hernai DESCRIPTION OF PROCEDURE: Patient has been given a dose of Zosyn perioperatively.Patient was brought to the operating room, placed supine on the table. Sequential compression device placed for DVT prophylaxis. General endotracheal anesthesia started. The abdomen prepped and draped in usual sterile fashion. After a surgical timeout, we began our surgery Entry into the abdomen done through an incision at the left upper quadrant area. Veress needle inserted on a controlled fashion. Intra-abdominal placement confirmed with saline drop technique. CO2 insufflation started to a pressure of 15 mmHg. Using the same incision a 5 mm port was placed under direct vision of laparoscope. Insertion site was inspected for injury and none was found. She was placed on a Trendelenburg position the right side tilted to about 30 to allow for better visualization of the appendix. The area underneath the umbilicus where she had 2 previous umbilical hernia repairs were examined. There is no any presence of hernia or intra-abdominal adhesions. An 8 mm port was placed under direct vision over this area. A 5 mm port was placed at the suprapubic area under direct vision. Operative findings: Visible portions of the liver is noted to be smooth. Gallbladder is mildly distended but thin walled. Visible portions of the bowel are within normal limits. Her cecum was noted, prominent but not distended. The appendix was located lateral and slightly posterior coming up towards the ascending colon. Mesentery was slightly shortened. The tip of the appendix has vascular engorgement and mild thickening. Scant amount of serous fluid noted over the right gutter. The appendix was located. This was grasped to pull the the appendix into view. She has a short mesal appendix. I started dividing the mesoappendix using Harmonic scalpel at the midportion and slowly reached down to the base while tugging the appendix into view. Two PDS Endoloops were placed to ligate the appendix at its base then divided with a Harmonic Scalpel the stump cauterized. Stump appears healthy. Appendix was then delivered into an Endo Catch bag. After re-insufflation the surgical site was inspected for hemostasis. Surrounding areas of the abdomen and inspected for fluid collections or signs of injury. The abdomen was deflated. All ports removed. The umbilical fascial defect repaired with 2-0 Vicryl in a mattress fashion. All skin incisions closed with 4-0 Monocryl in a subcuticular fashion. Steri-Strips and gauze dressing used for wound coverage. Patient was promptly awake and extubated and brought to recovery room stable. All counts of sponges and instruments verified to be correct. REY CLANCY MD Feb 25, 2018 11:18
[2018-02-25] MEDS ORDERED: NORCO, ANEXSIA 5/325MG TABLET (HYDROcodone/ACETAMINOPHEN) PO PRN (11:30)
[2018-02-25] MEDS ORDERED: ACETAMINOPHEN TAB 650MG DOSE (2X325MG) PO PRN (11:30)
[2018-02-25] MEDS: PERCOCET 5MG/325MG TAB PO PRN ×2 (11:35→12:05)
[2018-02-25] MEDS: ONDANSETRON 4MG/2ML VIAL (J2405) IV PRN ×2 (11:35→18:49)
[2018-02-25] MEDS ORDERED: PERCOCET 5MG/325MG TAB As Ordered ONE (11:36)
[2018-02-25] MEDS ORDERED: MORPHINE 10 MG/ML 1ML VIAL (J2270) IV PRN (11:45)
[2018-02-25] MEDS ORDERED: ONDANSETRON 4MG/2ML VIAL (J2405) IV PRN (11:45)
[2018-02-25] MEDS: fentaNYL 100 MCG/2 ML INJECTION (J3010) IV PRN ×4 (11:55→12:10)
[2018-02-25] MEDS: PIPERACILLIN/TAZOBACTAM SOD 3.375 GM in D5W MINI-BAG PLUS 50 ML IV SCH ×2 (15:44→20:25)
[2018-02-25] MEDS: KETOROLAC 30 MG/ML VIAL (J1885) IV PRN (17:07)
[2018-02-25] MEDS: NORCO, ANEXSIA 5/325MG TABLET (HYDROcodone/ACETAMINOPHEN) PO PRN (20:24)
[2018-02-25] MEDS ORDERED: zolPIDEM TARTRATE 5 MG TAB PO PRN (23:15)
[2018-02-26 02:00] VITALS: BP 114/53
[2018-02-26] MEDS: PIPERACILLIN/TAZOBACTAM SOD 3.375 GM in D5W MINI-BAG PLUS 50 ML IV SCH ×2 (02:24→08:56)
[2018-02-26] MEDS: NORCO, ANEXSIA 5/325MG TABLET (HYDROcodone/ACETAMINOPHEN) PO PRN ×2 (02:25→08:57)
[2018-02-26 06:00] VITALS: BP 116/55
[2018-02-26] MEDS: KETOROLAC 30 MG/ML VIAL (J1885) IV PRN (06:40)
[2018-02-26] MEDS: ONDANSETRON 4MG/2ML VIAL (J2405) IV PRN (07:27)
[2018-02-26] MEDS ORDERED: ZOFR4TAB16 PO (10:09)
[2018-02-26] MEDS ORDERED: NORCOTAB PO (10:09)
[2018-02-26 10:15] VITALS: BP 108/69
--- NOTE | 2018-02-26 12:20 | IPNPDOC ---
Subjective General Date/Time Seen The patient was seen on 02/26/18 at 12:17. Subject Chief Complaint/History The patient is a 27-year-old female admitted with a reason for visit of Acute Appendicitis. Patient reports discomfort at incision sites, rlq area, mild nausea post prandially. Denies vomiting. Patient tolerating regular food. Afebrile. Current Medications Current Medications Current Medications Acetaminophen (Tylenol Tab) 650 mg Q4HP PRN PO MILD PAIN or TEMP > 101; Start 02/25/18 at 11:30; Stop 02/26/18 at 11:37; Status DC Acetaminophen/ Hydrocodone Bitart ([place], Anexsia 5/325) 1 tab Q4HP PRN PO MODERATE PAIN (PS 5-7) Last administered on 02/25/18at 16:09; Start 02/25/18 at 11:30; Stop 02/26/18 at 11:37; Status DC Acetaminophen/ Hydrocodone Bitart ([place], Anexsia 5/325) 2 tab Q6HP PRN PO SEVERE PAIN (PS 8-10) Last administered on 02/26/18at 08:57; Start 02/25/18 at 11:30; Stop 02/26/18 at 11:37; Status DC Diatrizoate Meglum/ Diatrizoate Sod (Gastrografin) 10 ml Q30M PO Last administered on 02/25/18at 06:10; Start 02/25/18 at 05:30; Stop 02/25/18 at 06:01; Status DC Fentanyl Citrate (Sublimaze) 25 mcg Q5MP PRN IV MODERATE PAIN (PS 4-7) Last administered on 02/25/18at 12:10; Start 02/25/18 at 11:45; Stop 02/25/18 at 12:18; Status DC Home Med (Med Rec Complete!) ASDIRECTED XX ; Start 02/25/18 at 08:30; Stop 02/25/18 at 08:30; Status DC Ketorolac Tromethamine (ToRADol) 30 mg Q6HP PRN IV MILD/MODERATE PAIN (PS 1-7) Last administered on 02/26/18at 06:40; Start 02/25/18 at 17:00; Stop 02/26/18 at 11:37; Status DC Lactated Ringer's 1,000 ml @ 100 mls/hr Q10H IV Last administered on 02/25/18at 11:23; Start 02/25/18 at 11:18; Stop 02/25/18 at 17:03; Status DC Lactated Ringer's 1,000 ml @ 100 mls/hr Q10H IV ; Start 02/25/18 at 11:45; Stop 02/25/18 at 12:45; Status DC Morphine Sulfate (Morphine Sulfate Inj) 2 mg Q5M PRN IV MODERATE/SEVERE PAIN (PS 5-10); Start 02/25/18 at 11:45; Stop 02/25/18 at 12:45; Status DC Morphine Sulfate (Morphine Sulfate Inj) 4 mg Q15M PRN IV MODERATE/SEVERE PAIN (PS 5-10) Last administered on 02/25/18at 05:34; Start 02/25/18 at 05:30; Stop 02/25/18 at 19:21; Status DC Ondansetron HCl (ZOFRAN INJection) 4 mg Q4HP PRN IV NAUSEA OR VOMITING; Start 02/25/18 at 11:45; Stop 02/25/18 at 12:45; Status DC Ondansetron HCl (ZOFRAN INJection) 4 mg Q6HP PRN IV NAUSEA OR VOMITING Last administered on 02/26/18at 07:27; Start 02/25/18 at 11:30; Stop 02/26/18 at 11:37; Status DC Oxycodone/ Acetaminophen (Percocet 5mg/ 325mg Tablet) 1 tab ASDIRECTED PRN PO MILD/MODERATE PAIN (PS 1-7) Last administered on 02/25/18at 12:05; Start 02/25/18 at 11:45; Stop 02/25/18 at 12:18; Status DC Piperacillin Sod/ Tazobactam Sod 3.375 gm/Dextrose 50 ml @ 50 mls/hr Q6H IV Last administered on 02/26/18at 08:56; Start 02/25/18 at 15:00; Stop 02/26/18 at 11:37; Status DC Sodium Chloride 1,000 ml @ 100 mls/hr Q10H IV ; Start 02/25/18 at 08:12; Stop 02/25/18 at 11:23; Status DC Zolpidem Tartrate (Ambien) 5 mg QHSP PRN PO INSOMNIA Last administered on 02/25/18at 23:28; Start 02/25/18 at 23:15; Stop 02/26/18 at 11:37; Status DC Allergies Coded Allergies: No Known Drug Allergy (Verified Allergy, Unknown, 04/22/16) Objective Physical Examination Examination GENERAL APPEARANCE:looks comfortable. SKIN: Warm and moist. HEENT: Normocephalic, atraumatic. [place] palpebral conjunctiva, anicteric sclerae. Lips and mucosa appear moist. NECK: Supple, no thyromegaly. No obvious jugular venous distention. LUNGS: Clear to auscultation bilaterally. No wheezing appreciated. HEART: No chest wall abnormalities. Regular rate and rhythm with no murmurs appreciated. ABDOMEN: Abdomen is flat, soft, nondistended. Port site incisions over LUQ, supraumbilical, suprapubic area, dressings clean, dry, intact. Mild tenderness around umbilicus, rlq area, no guarding. . EXTREMITIES: Extremities have no deformities. No edema identified. Vital Signs Vital Signs Date Time Temp Pulse Resp B/P (MAP) Pulse Ox O2 Delivery O2 Flow Rate FiO2 02/26/18 10:15 98.5 80 17 108/69 (82) 98 Room Air I&Os I&O- Last 24 Hours up to 6 AM 02/26/18 06:00 Intake Total 3880 ml Output Total 800 ml Balance 3080 ml Laboratory Data Microbiology Microbiology 02/25/18 Blood Culture - Preliminary, Resulted No growth after 24 hours . All specim... 02/25/18 Blood Culture - Preliminary, Resulted No growth after 24 hours . All specim... Impression POD1 Laparoscopic Appendectomy for acute appendicitis OK to d/c home No need for further antibiotics alisson jones sent to pharmacy Follow up with me in 2 weeks Plan / VTE VTE Prophylaxis Ordered?: No VTE Exclusion Mechanical Proph: Low Risk for VTE MAGUI MONCADA MD Feb 26, 2018 12:20
== END 2018-02-26 11:30 | disposition home or self-care (01) ==
LOC: M ED 04:09 → M SDC 09:55 → M PED 12:25 → M MS4PR 23:58 → M SDC 02-26 11:30
PROVIDERS: ATTEND Surgery
DX: K35.80 Unspecified acute appendicitis (principal); F41.0 Panic disorder [episodic paroxysmal anxiety]; Z87.448 Personal history of other diseases of urinary system
CPT/HCPCS: 44970; 80048; 80076; 81001; 83690; 84703; 85025; 87040; 88304; 96365; 96375; 96376; 99285; J1100; J1885; J2250; J2270; J2405; J2543; J2710; J3010; Q9963; Q9967

== ENCOUNTER → 2018-05-10 | Outpatient (CLI) | payer OTHER ==
[~2018-05-10] MED LIST changes: +DIUR3TAB PO; +ZOFR4TAB16 PO
--- NOTE | 2018-05-10 14:06 | REP ---
RIGHT ANKLE, FOUR VIEWS: HISTORY: Sprain. There is no acute fracture or dislocation. The joint space is normal in appearance. IMPRESSION: There is no acute fracture or dislocation. Electronically Signed by Julio Petty MD 05/10/2018 02:07 P
--- NOTE | 2018-05-10 14:12 | REP ---
RIGHT KNEE, FIVE VIEWS: HISTORY: Sprain. There is no acute fracture or dislocation. The joint spaces are normal in appearance. IMPRESSION: There is no acute fracture or dislocation. Electronically Signed by Julio Petty MD 05/10/2018 02:12 P
== END ==
LOC: M WUC 11:03
PROVIDERS: ATTEND Physician Assistant
DX: S83.411A Sprain of medial collateral ligament of right knee, initial encounter (principal); S93.401A Sprain of unspecified ligament of right ankle, initial encounter; Y93.9 Activity, unspecified; Y99.9 Unspecified external cause status; Y92.9 Unspecified place or not applicable; X58.XXXA Exposure to other specified factors, initial encounter

== ENCOUNTER → 2018-07-19 | Outpatient (REF) | payer OTHER ==
[~2018-07-19] MED LIST changes: +HYDR-3715 PO; -LIDO1SOL7 OR; +LIDO1SOL8 OR; -NORCOTAB PO
[2018-07-19 21:23] LABS: CHLAMYDIA DNA AMPLIFICATION NEGATIVE (NEGATIVE); GC DNA AMPLIFICATION NEGATIVE (NEGATIVE)
== END ==
LOC: M LAB REF 16:51
PROVIDERS: ATTEND Physician Assistant
DX: Z11.3 Encounter for screening for infections with a predominantly sexual mode of transmission (principal)

== ENCOUNTER → 2018-09-26 | Outpatient (CLI) | payer OTHER ==
--- NOTE | 2018-09-26 11:27 | REP ---
DIGITAL DIAGNOSTIC UNILATERAL LEFT BREAST MAMMOGRAPHY WITH CAD, 3D TOMOGRAPHY, AND FOCUSED LEFT BREAST SONOGRAPHY. HISTORY: Palpable lump in the left breast present which is getting larger. The size of a quarter. No comparison breast imaging. MAMMOGRAPHIC FINDINGS: A skin marker is affixed to the skin at the site of the palpable lump. Routine views of the left breast are augmented by a 3D tomography and a true ML projection. Breast parenchyma is somewhat dense in the subareolar and upper outer quadrant regions on the left. There is no mass density seen at the site of the palpable lump or elsewhere in the left breast. No architectural distortion, abnormal skin thickening, or microcalcification is appreciated mammographically. 3D tomography images show no significant abnormality. SONOGRAPHIC FINDINGS: Focused left breast sonography is performed through the area of the palpable lump at 2-o'clock position. Heterogeneous fibroglandular echotexture is seen but no cyst, mass, acoustic shadowing or architectural distortion is detected. IMPRESSION: BIRADS 1: BI-RADS/ACR category 1 mammogram. Negative Mammogram. BIRADS category 1 negative mammographic and sonographic findings. This negative report should not dissuade one from biopsy of a palpable lump depending on its clinical characteristics. Clinical followup is advised. This mammogram was interpreted with the aid of an FDA-approved computer-aided detection system. The patient states she had a clinical breast exam in August 2018. The patient letter being requested is M2. Electronically Signed by Christopher Persaud MD 09/26/2018 07:33 P
--- NOTE | 2018-09-26 11:37 | REP ---
Sonography: History: Pelvic and perineal pain. Findings: Visualized bladder humphrey are smooth. Transabdominal and transvaginal scanning are performed. Uterine dimensions are normal 7.3 x 3.4 x 4.3 cm. Endometrial echo 0.8 cm thick and centrally placed. Normal ovaries seen bilaterally. Right ovary dimensions are 1.9 x 1.5 x 1.2 cm. The left ovary measures 2.3 x 1.9 x 2.2 cm. Doppler flow is normal both ovaries. Impression: Normal pelvic sonography. Electronically Signed by Christopher Persaud MD 09/26/2018 11:29 A
== END ==
LOC: M RAD 08:07
PROVIDERS: ATTEND Obstetrics & Gynecology
DX: N63.21 Unspecified lump in the left breast, upper outer quadrant (principal)
CPT/HCPCS: 76642; 76830; 76856; 77065; 93976; G0279

== ENCOUNTER 2020-02-05 13:18 | Emergency (ER) | payer OTHER ==
[~2020-02-05] VITALS: Ht 165.1 cm; Wt 74.9 kg
[~2020-02-05 13:18] MED LIST changes: -LIDO1SOL8 OR; +LIDO2SOL17 OR
[2020-02-05] MEDS ORDERED: RALT40TA PO ×2 (13:30→16:05)
[2020-02-05] MEDS ORDERED: TRUVTAB PO ×2 (13:30→16:05)
[2020-02-05] MEDS ORDERED: LORazepam 1 MG TAB PO STA (13:43)
[2020-02-05] MEDS ORDERED: EXPOSURE KIT-ADULT 7 DAY SUPPLY PO ONE (13:45)
[2020-02-05] MEDS ORDERED: cefTRIAXone SOD 250MG VIAL (J0696 PER 250MG) IM ONE (13:45)
[2020-02-05] MEDS ORDERED: LIDOCAINE 1% SDV 5ML VIAL DILUENT ONE (13:45)
[2020-02-05] MEDS ORDERED: AZITHROMYCIN 250MG TABLET PO ONE (13:45)
[2020-02-05] MEDS ORDERED: metroNIDAZOLE (FLAGYL) 500MG TABLET PO ONE (13:45)
[2020-02-05 14:17] LABS: BASO % 0.6 % (0.0-1.0); EOS % 0.6 % (0.0-3.0); HEMATOCRIT 44.7 % (36.0-47.0); HEMOGLOBIN 14.6 g/dl (12.0-15.5); LYMPH # 2.4 10^3/uL (1.5-5.0); LYMPH % 44.8 % (24.0-44.0); MEAN CORPUSCULAR HGB CONC 32.7 g/dl (32.0-36.5); MEAN CORPUSCULAR VOLUME 94.9 fl (80.0-96.0); MONO # 0.5 10^3/uL (0.0-0.8); MONO % 8.8 % (0.0-5.0); NEUTROPHILS # 2.4 10^3/uL (1.5-8.5); PLATELET COUNT, AUTOMATED 258 10^3/uL (150-450); RED BLOOD COUNT 4.71 10^6/uL (4.00-5.40); WHITE BLOOD COUNT 5.4 10^3/uL (4.0-10.0)
[2020-02-05 14:48] LABS: ALBUMIN 4.4 GM/DL (3.2-5.2); ALT/SGPT 33 U/L (12-78); BILIRUBIN,TOTAL 0.2 MG/DL (0.2-1.0); BLOOD UREA NITROGEN 10 MG/DL (7-18); CALCIUM LEVEL 9.2 MG/DL (8.5-10.1); CARBON DIOXIDE LEVEL 25 MEQ/L (21-32); CHLORIDE LEVEL 108 MEQ/L (98-107); CREATININE FOR GFR 0.85 MG/DL (0.55-1.30); GLOMERULAR FILTRATION RATE > 60.0 (>60); GLUCOSE, FASTING 82 MG/DL (70-100); POTASSIUM SERUM 4.2 MEQ/L (3.5-5.1); SODIUM LEVEL 140 MEQ/L (136-145); TOTAL PROTEIN 8.2 GM/DL (6.4-8.2)
[2020-02-05 14:52] LABS: HCG, SERUM QUALITATIVE NEGATIVE (NEGATIVE)
[2020-02-05] MEDS ORDERED: TRUVADA 200MG/300MG TABLET PO ONE (15:00)
[2020-02-05] MEDS ORDERED: RALTEGRAVIR 400 MG TAB (ISENTRESS) PO ONE (15:00)
[2020-02-05 15:09] LABS: HEPATITIS B SURFACE ANTIBODY POSITIVE (POSITIVE)
[2020-02-05 15:20] LABS: HEPATITIS B SURFACE ANTIGEN NEGATIVE (NEGATIVE)
[2020-02-05 15:48] LABS: HEPATITIS C VIRUS ABY INDEX 0.1 INDEX (<0.8)
[2020-02-05 15:49] LABS: HIV 1&2 SCREEN CENTAUR NEGATIVE (NEGATIVE)
[2020-02-05] MEDS ORDERED: XANA0.25 PO (18:41)
[2020-02-05 19:25] VITALS: BP 125/71
[2020-02-06] MEDS ORDERED: RALTEGRAVIR 400 MG TAB (ISENTRESS) PO SCH
[2020-02-06] MEDS ORDERED: TRUVADA 200MG/300MG TABLET PO SCH
[2020-02-06 05:36] LABS: CHLAMYDIA DNA AMPLIFICATION NEGATIVE (NEGATIVE); GC DNA AMPLIFICATION NEGATIVE (NEGATIVE)
== END 2020-02-05 19:21 | disposition home or self-care (01) ==
LOC: EEVIPCON 13:18 → M ED 13:18
DX: Z04.41 Encounter for examination and observation following alleged adult rape (principal); F41.9 Anxiety disorder, unspecified
CPT/HCPCS: 80053; 84703; 85025; 86706; 86780; 86803; 87210; 87340; 87389; 87491; 87591; 96372; 99283; J0696

== ENCOUNTER 2020-03-06 14:54 | Emergency (ER) | payer OTHER ==
[~2020-03-06] VITALS: Ht 165.1 cm; Wt 74.1 kg
[~2020-03-06 14:54] MED LIST changes: +RALT40TA PO; +TRUVTAB PO; +XANA0.25 PO
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
--- OUTSIDE RECORDS SUMMARY | 2020-03-06 15:02 | CCD | Continuity of Care Document ---
Author Author Aicha CARR SALESPERSON DRIVER Organization Unknown Address [address] [place] [address] [place] [address] Phone [phone] Care Team Providers Care Vp Securities Name Role Phone Sadie Myrick MD AUTM [phone] Dhaval Flynn Publi AUTM [phone] Problems Description No Information Available Social History Type Date Description Comments Sex Unknown ETOH Use Occasionally consumes alcohol Tobacco Use Start: Unknown No Smoking Status Reviewed: 01/12/19 No Allergies, Adverse Reactions, Alerts Description No Known Drug Allergies Medications Active Medications SIG Qnty Indications Ordering Provide r Date Erythromycin 5mg/GM Ointment apply a thin layer to the left eye 3-4 x per day x 7 days. 1units H00.024 Roberto Dumont JR., M.D. 01/12/2019 Immunizations Description No Information Available Vital Signs Date Vital Result Comment 01/12/2019 8:35am BP Systolic 94 mmHg BP Diastolic 69 mmHg Heart Rate 83 /min Respiratory Rate 16 /min O2 % BldC Oximetry 99 % Body Temperature 98.3 F Weight 150.00 lb Height 65 inches 5'5" BMI (Body Mass Index) 25.0 kg/m2 Pain Level 7 05/10/2018 10:34am BP Systolic 97 mmHg BP Diastolic 68 mmHg Heart Rate 110 /min O2 % BldC Oximetry 98 % Body Temperature 98.1 F Weight 142.00 lb Height 65 inches 5'5" BMI (Body Mass Index) 23.6 kg/m2 Pain Level 0 Results Description No Information Available Procedures Description No Information Available Medical Devices Description No Information Available Encounters Description No Information Available Assessments Date Code Description Provider 12/19/2019 Z20.828 Contact with and (pulido spected) exposure to other viral communicable diseases SHIKHA Bhandari Plan of Treatment No Information Available Functional Status Description No Information Available Mental Status Description No Information Available Referrals Description No Information Available
--- OUTSIDE RECORDS SUMMARY | 2020-03-06 15:02 | CCD | Continuity of Care Document ---
Author Author Aicha GALICIA Organization Unknown Address [address] [place] [address] [place] [address] Phone [phone] Care Team Providers Care Enterprise Application Analyst Name Role Phone Sadie Myrick MD AUTM [phone] Dhaval Flynn Publi AUTM [phone] Problems Description No Information Available Social History [...] Available Encounters Description No Information Available Assessments Description No Information Available Plan of Treatment No Information Available Functional Status Description No Information Available Mental Status Description No Information Available Referrals Description No Information Available
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
--- OUTSIDE RECORDS SUMMARY | 2020-03-06 15:02 | CCD | Continuity of Care Document ---
Author Author Aicha CARR CHILD CARE SPECIALIST Organization Unknown Address [address] [place] [address] [place] [address] Phone [phone] Care Team Providers Care Insurance Billing Specialist Name Role Phone Sadie Myrick MD AUTM [phone] Dhaval Flynn Publi AUTM [phone] Problems Description No Information Available Social History [...]
--- OUTSIDE RECORDS SUMMARY | 2020-03-06 15:03 | CCD ---
Author Author [facility] Address Unknown Phone Unavailable Support Name Relationship Address Phone UE Next Of Kin Unknown Unavailable SELF EMPLOYED Next Of Kin Unknown Unavailable MANAS URE[place] [address] TEXARYA Next Of Kin [address] [place] [address] LIDA POOL Next Of Kin [address] [place] [address] TGIFS Next Of Kin [address] [facility] [place] [id number] ALDO MADDOX Next Of Kin [address] [place] [address] [place] [address] TABITHA BOONE Next Of Kin [address] [place] [address] CAMILA POOL Next Of Kin [address] [place] [address] FX [place] [address] BENCHMARK Next Of Kin [place] [id number] YANE ALBARRAN Next Of Kin 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 Name Role Phone Barraclough, Kell PA Unavailable Unavailable Barraclough, Kell PA Unavailable Unavailable Barraclough, Kell PA Unavailable Unavailable Barraclough, Kell PA Unavailable Unavailable Barraclough, Kell PA Unavailable Unavailable Barraclough, Kell PA Unavailable Unavailable Robert (Alexander) Nina SMYTH Unavailable Unavailable LETTIERE, A CASSIDY PA Unavailable Unavailable LETTIERE, A CASSIDY PA Unavailable Unavailable LETTIERE, A CASSIDY PA Unavailable Unavailable LETTIERE, A CASSIDY PA Unavailable Unavailable LETTIERE, A CASSIDY PA Unavailable Unavailable LETTIERE, A CASSIDY PA Unavailable Unavailable LETTIERE, A CASSIDY PA Unavailable Unavailable LETTIERE, A CASSIDY PA Unavailable Unavailable LETTIERE, A CASSIDY PA Unavailable Unavailable LETTIERE, A CASSIDY PA Unavailable Unavailable LETTIERE, A CASSIDY PA Unavailable Unavailable LETTIERE, A CASSIDY PA Unavailable Unavailable LETTIERE, A CASSIDY PA Unavailable Unavailable LETTIERE, A CASSIDY PA Unavailable Unavailable LETTIERE, A CASSIDY PA Unavailable Unavailable LETTIERE, A CASSIDY PA Unavailable Unavailable LETTIERE, A CASSIDY PA Unavailable Unavailable LETTIERE, A CASSIDY PA Unavailable Unavailable LETTIERE, A CASSIDY PA Unavailable Unavailable LETTIERE, A CASSIDY PA Unavailable Unavailable LETTIERE, A CASSIDY PA Unavailable Unavailable LETTIERE, A CASSIDY PA Unavailable Unavailable LETTIERE, A CASSIDY PA Unavailable Unavailable LETTIERE, A CASSIDY PA Unavailable Unavailable LETTIERE, A CASSIDY PA Unavailable Unavailable LETTIERE, A CASSIDY PA Unavailable Unavailable LETTIERE, A CASSIDY PA Unavailable Unavailable LETTIERE, A CASSIDY PA Unavailable Unavailable LETTIERE, A CASSIDY PA Unavailable Unavailable DiBindira P Cassidy SMYTH Unavailable Unavailable DiBella Félix Vargas MD Unavailable Unavailable DiBella, P Cassidy MD Unavailable Unavailable DiBella, Félix Vargas MD Unavailable Unavailable DiBella, Félix Vargas MD Unavailable Unavailable DiBella, Félix Vargas MD Unavailable Unavailable Re-disclosure Warning The records that you are about to access may contain information from federally-assisted alcohol or drug abuse programs. If such information is present, then the following federally mandated warning applies: This information has been disclosed to you from records protected by federal confidentiality rules (42 CFR part 2). The federal rules prohibit you from making any further disclosure of this information unless further disclosure is expressly permitted by the written consent of the person to whom it pertains or as otherwise permitted by 42 CFR part 2. A general authorization for the release of medical or other information is NOT sufficient for this purpose. The Federal rules restrict any use of the information to criminally investigate or prosecute any alcohol or drug abuse patient.The records that you are about to access may contain highly sensitive health information, the redisclosure of which is protected by Article 27-F of the [facility] Public Health law. If you continue you may have access to information: Regarding HIV / AIDS; Provided by facilities licensed or operated by the [facility] Office of Mental Health; or Provided by the [facility] Office for People With Developmental Disabilities. If such information is present, then the following [facility] mandated warning applies: This information has been disclosed to you from confidential records which are protected by state law. State law prohibits you from making any further disclosure of this information without the specific written consent of the person to whom it pertains, or as otherwise permitted by law. Any unauthorized further disclosure in violation of state law may result in a fine or shelter sentence or both. A general authorization for the release of medical or other information is NOT sufficient authorization for further disc losure. Allergies and Adverse Reactions Type Description Substance Reaction Status Data Source(s ) Drug allergy oxycodone HCl oxycodone HCl Dizzyness [facility] Family History Family Member Name Family Member Gender Family Member Status Date o f Status Description Data Source(s) Unknown Condition [facility] Encounters Encounter Providers Location Date Indications Data Source(s ) Outpatient Attender: Kell TRIVEDI [facility] 02/28/2020 07:45:00 AM [facility] HOGAN [facility] Emergency Attender: Cassidy Ascencio MDAttender: Nina hawley MD 07/20/2019 05:52:00 PM EDT - 07/20/2019 07:15:00 PM EDT SWOLLEN FINGER [facility] SWOLLEN FINGER Patient discharged. Outpatient Attender: CASSIDY fischer 01/12/2019 07:40:00 AM EST [facility] ([facility]) Immunizations Vaccine Date Status Description Data Source(s) Tdap 07/20/2019 12:00:00 AM EDT completed tetan us, diphtheria, acell pertussis 7yrs &up [facility] Medications Medication Brand Name Start Date Product Form Dose Route Admi nistrative Instructions Pharmacy Instructions Status Indications Reaction Description Data Source(s) Escitalopram 10 MG Oral Tablet ESCITALOPRAM OXALATE 02/28/2020 1 2:00:00 AM EST tablet 30 TAKE ONE TABLET BY MOUTH EVERY D AY MAXIMUM DAILY DOSE = 1 TAKE ONE TABLET BY MOUTH EVERY DAY MAXIMUM DAILY DOSE = 1 SOLD: 02/28/2020 [facility] Hydroxyzine Hydrochloride 25 MG Oral Tablet Hydroxyzine HCL 02/28/2020 12:00:00 AM EST ORAL active [facility] ([facility] Escitalopram 10 MG Oral Tablet [Lexapro] Lexapro 02/28/2020 12:00: 00 AM EST ORAL active [facility] ([facility] 25 mg 02/28/2020 12:00:00 AM EST tablet 30 TAKE ONE TABLET BY MOUTH TWO TIMES A DAY NEEDED MAXIMUM DAILY DOSE = 2 TAKE ONE TABLET BY MOUTH TWO TIMES A DAY NEEDED MAXIMUM DAILY DOSE = 2 SOLD: 02/28/2020 [facility] Alprazolam 0.25 MG Oral Tablet ALPRAZOLAM 02/05/2020 12:00:00 AM EST tablet 10 TAKE ONE TABLET BY MOUTH EVERY 8 HOURS A S NEEDED FOR ANXIETY MAXIMUM DAILY DOSE = THREE TABLETS TAKE ONE TABLET BY MOUTH EVERY 8 HOURS A S NEEDED FOR ANXIETY MAXIMUM DAILY DOSE = THREE TABLETS SOLD: 02/05/2020 [facility] 200-300 mg 02/05/2020 12:00:00 AM EST tablet 21 TAKE ONE TABLET BY MOUTH EVERY DAY TAKE ONE TABLET BY MOUTH EVERY DAY SOLD: 02/05/2020 [facility] 400 mg 02/05/2020 12:00:00 AM EST tablet 42 TAKE ONE TABLET BY MOUTH TWICE A DAY TAKE ONE TABLET BY MOUTH TWICE A DAY SOLD: 02/05/2020 [facility] 5 mg/gram (0.5 %) 01/12/2019 12:00:00 AM EST ointment 3 APPLY A THIN LAYER TO THE LEFT EYE 3-4 TIMES A DAY FOR 7 DAYS APPLY A THIN LAYER TO THE LEFT EYE 3- 4 TIMES A DAY FOR 7 DAYS SOLD: 01/12/2019 [facility] Erythromycin 0.005 MG/MG Ophthalmic Ointment Erythromycin 01/12/2019 12:00:00 AM EST OPHTHALMIC active [facility] ([facility]) Insurance Providers Payer name Policy type / Coverage type Policy ID Covered constitution party ID Covered constitution party's relationship to escalante Policy Escalante Plan Information [facility] [id number] SP [id number] [facility] O [id number] S [id number] [facility] Health Maintenance Organization (O) [id number] Self [id number] [facility] Commercial [id number] Self [id number] [facility] Workers Compensation [id number] Self [id number] [facility] Health Maintenance Organization (HMO) [id number] Self [id number] [facility] Health Maintenance Organization (HMO) [id number] Self [id number] [facility] Workers Compensation [id number] Self [id number] [facility] Health Maintenance Organization (HMO) [id number] Self [id number] [facility] Workers Compensation [id number] Self [id number] [facility] [id number] SP [id number] [facility] [id number] SP [id number] [facility] [id number] SP [id number] [employer] [place]/[id number] SP [id number] [employer] [place]/[id number] SP [id number] SELF PAY ONLY UNAVAILABLE SP UNAV AILABLE STATE INSURANCE FUND [id number] SP [id number] STATE INSURANCE FUND O [id number] S [id number] STATE INSURANCE FUND UNAVAILABLE SP UNAVAILABLE FX CAPRARA O [id number] S [id number] FX CAPRARA O [id number] S [id number] FX CAPRARRA [id number] SP [id number] [facility] [id number] HU2 [id number] SELF PAY UNAVAILABLE SP UNAVAILA BLE [id number] Surgeries/Procedures Procedure Description Date Indications Data Source(s) Electrocardiogram Complete 02/28/2020 12:00:00 AM EST [facility] ([facility] Xray Hand Complete RT 07/20/2019 06:46:00 PM EDT [facility] Results ID Date Data Source [id number] 03/01/2020 06:37:00 AM EST [facility] Received: 02/29/2020 at 11:02:00 QPT : [facility], [address], [address] [place] [address], [phone] MD Received: 02/29/2020 at 11:02:00 QPT : [facility] Kj [address], [address] [place] [address], [phone] MD Received: 02/29/2020 at 11:02:00 QPT : [facility] Nasreen, [address], [address] [place] [address], [phone] MD Received: 02/29/2020 at 11:02:00 QPT : [facility], [address], [address] [place] [address], [phone] MD Received: 02/29/2020 at 11:02:00 QPT : [facility], [address], [address] [place] [address], [phone] MD Name Value Range Interpretation Code Description Data Skylar rce(s) Supporting Document(s) ID Date Data Source [id number] 03/01/2020 06:37:00 AM EST [facility] Received: 02/29/2020 at 11:02:00 QPT : [facility], [address] [place] [address], [phone] MD Received: 02/29/2020 at 11:02:00 QPT : [facility], [address], [address] [place], [phone], Paulino Santos MD Received: 02/29/2020 at 11:02:00 QPT : [facility], [address], [address] [place], [address], Paulino Santos MD Received: 02/29/2020 at 11:02:00 QPT : [facility], [address], [address] [place], [address], Paulino Santos MD Received: 02/29/2020 at 11:02:00 QPT : [facility], [address], [address] [place], [phone], Paulino Santos MD Name Value Range Interpretation Code Description Data Skylar rce(s) Supporting Document(s) Glucose [Mass/volume] in Serum or Plasma 96 mg/dL 65-99 Normal (applies to non- numeric results) [facility] Fasting reference interval Urea nitrogen [Mass/volume] in Serum or Plasma 10 mg/dL 7 -25 Normal (applies to non-numeric results) [facility] Creatinine [Mass/volume] in Serum or Plasma 0.81 mg/dL 0.50 -1.10 Normal (applies to non-numeric results) [facility] Glomerular filtration rate/1.73 sq M.pre dicted [Volume Rate/Area] in Serum, Plasma or Blood by Creatinine-based formula (MDRD) 98 mL/min/1.73m2 > OR = 60 Normal (applies to non-numeric results) [facility] Glomerular filtration rate/1.73 sq M pre dicted among blacks [Volume Rate/Area] in Serum or Plasma by Creatinine-based formula (MDRD) 114 mL/min/1.73m2 > OR = 60 Normal (applies to non-numeric results) [facility] Urea nitrogen/Creatinine [Mass Ratio] in Serum or Plasma NOT APPLICABLE (calc) 6-22 [facility] Sodium [Moles/volume] in Serum or Plasma 136 mmol/L 135-146 Normal (applies to non-numeric results) [facility] Potassium [Moles/volume] in Serum or Plasma 4.1 mmol/L 3.5- 5.3 Normal (applies to non-numeric results) [facility] Chloride [Moles/volume] in Serum or Plasma 104 mmol/L 98-11 0 Normal (applies to non-numeric results) [facility] Carbon dioxide, total [Moles/volume] in Serum or Plasma 24 mmol/ L 20-32 Normal (applies to non-numeric results) [facility] Calcium [Mass/volume] in Serum or Plasma 9.2 mg/dL 8.6-10. 2 Normal (applies to non-numeric results) [facility] Protein [Mass/volume] in Serum or Plasma 7.0 g/dL 6.1-8.1 Normal (applies to non-numeric results) [facility] Albumin [Mass/volume] in Serum or Plasma 4.5 g/dL 3.6-5.1 Normal (applies to non-numeric results) [facility] Globulin [Mass/volume] in Serum by calculation 2.5 g/dL (calc) 1 .9-3.7 Normal (applies to non-numeric results) [facility] Albumin/Globulin [Mass Ratio] in Serum or Plasma 1.8 (calc) 1.0-2.5 Normal (applies to non-numeric results) [facility] Bilirubin.total [Mass/volume] in Serum or Plasma 1.0 mg/dL 0.2-1.2 Normal (applies to non-numeric results) [facility] Alkaline phosphatase [Enzymatic activity/volume] in Serum or Plasma 57 U/L 31-125 Normal (applies to non-numeric results) [facility] Aspartate aminotransferase [Enzymatic activity/volume] in Serum or Plasma 24 U/L 10-30 Normal (applies to non-numeric results) [facility] Alanine aminotransferase [Enzymatic activity/volume] in Seru m or Plasma 22 U/L 6-29 Normal (applies to non-numeric results) [facility] ID Date Data Source [id number] 03/01/2020 06:37:00 AM EST [facility] Received: 02/29/2020 at 11:02:00 QPT : [facility] [address] [address], [address] [place] [address], [phone], Paulino Santos MD Received: 02/29/2020 at 11:02:00 QPT : [facility] [address], [address] [place] [address], [phone], Paulino Santos MD Received: 02/29/2020 at 11:02:00 QPT : [facility], [address], [address] [place], [phone], Paulino Santos MD Received: 02/29/2020 at 11:02:00 QPT : [facility], [address], [address] [place], [phone], Paulino Santos MD Received: 02/29/2020 at 11:02:00 QPT : [facility], [address], [address] [place], [phone], Paulino Santos MD Name Value Range Interpretation Code Description Data Skylar rce(s) Supporting Document(s) Leukocytes [#/volume] in Blood by Automated count 4.9 Thousand/u L 3.8-10.8 Normal (applies to non-numeric results) [facility] Erythrocytes [#/volume] in Blood by Automated count 4.53 Million /uL 3.80-5.10 Normal (applies to non-numeric results) [facility] Hemoglobin [Mass/volume] in Blood 14.9 g/dL 11.7-15.5 Normal (applies to non- numeric results) [facility] Hematocrit [Volume Fraction] of Blood by Automated count 43.2 % 35.0-45.0 Normal (applies to non-numeric results) [facility] Erythrocyte mean corpuscular volume [Entitic volume] by Auto mated count 95.4 fL 80.0-100.0 Normal (applies to non-numeric results) [facility] Erythrocyte mean corpuscular hemoglobin [Entitic mass] by Automated count 32.9 pg 27.0-33.0 Normal (applies to non-numeric results) [facility] Erythrocyte mean corpuscular hemoglobin concentration [Mass/volume] by Automated count 34.5 g/dL 32.0-36.0 Normal (applies to non-numeric results) [facility] Erythrocyte distribution width [Ratio] by Automated count 12.2 % 11.0-15.0 Normal (applies to non-numeric results) [facility] Platelets [#/volume] in Blood by Automated count 244 Thousand/uL 140-400 Normal (applies to non-numeric results) [facility] Platelet mean volume [Entitic volume] in Blood by Deisy 12. 0 fL 7.5-12.5 Normal (applies to non-numeric results) [facility] Neutrophils [#/volume] in Blood by Automated count 2146 cells/uL 1267-9997 Normal (applies to non-numeric results) [facility] Lymphocytes [#/volume] in Blood by Automated count 2063 cells/uL 850-3900 Normal (applies to non-numeric results) [facility] Monocytes [#/volume] in Blood by Automated count 554 cells/uL 200-950 Normal (applies to non-numeric results) [facility] Eosinophils [#/volume] in Blood by Automated count 88 cells/uL 15-500 Normal (applies to non-numeric results) [facility] Basophils [#/volume] in Blood by Automated count 49 cells/uL 0-200 Normal (applies to non-numeric results) [facility] Neutrophils/100 leukocytes in Blood by Automated count 43.8 % 38-80 Normal (applies to non-numeric results) [facility] Lymphocytes/100 leukocytes in Blood by Automated count 42.1 % 15-49 Normal (applies to non-numeric results) [facility] Monocytes/100 leukocytes in Blood by Automated count 11.3 % 0-13 Normal (applies to non-numeric results) [facility] Eosinophils/100 leukocytes in Blood by Automated count 1.8 % 0-8 Normal (applies to non-numeric results) [facility] Basophils/100 leukocytes in Blood by Automated count 1.0 % 0-2 Normal (applies to non-numeric results) [facility] ID Date Data Source [id number] 03/01/2020 06:37:00 AM EST [facility] Received: 02/29/2020 at 11:02:00 QPT : [facility], [address] [place] [address], [phone], Paulino Santos MD Received: 02/29/2020 at 11:02:00 QPT : [facility], [address] [place] [address], [phone], Paulino Santos MD Received: 02/29/2020 at 11:02:00 QPT : [facility] [address], [address] [place] [address], [phone], Paulino Santos MD Received: 02/29/2020 at 11:02:00 QPT : [facility], [address], [address] [place], [phone] MD Received: 02/29/2020 at 11:02:00 QPT : [facility], [address], [address] [place], [phone], Paulino Santos MD Name Value Range Interpretation Code Description Data Skylar rce(s) Supporting Document(s) Thyroxine (T4) free [Mass/volume] in Serum or Plasma 1.1 ng/dL 0.8-1.8 Normal (applies to non-numeric results) [facility] ID Date Data Source [id number] 03/01/2020 06:37:00 AM EST [facility] Received: 02/29/2020 at 11:02:00 QPT : [facility], [address], [address] [place] [address], [phone], Paulino Santos MD Received: 02/29/2020 at 11:02:00 QPT : [facility], [address], [address] [place], [address], Paulino Santos MD Received: 02/29/2020 at 11:02:00 QPT : [facility], [address], [address] [place], [phone] MD Received: 02/29/2020 at 11:02:00 QPT : [facility], [address], [address] [place] [address], [phone] MD Received: 02/29/2020 at 11:02:00 QPT : [facility], [address], [address] [place] [address], [phone] MD Name Value Range Interpretation Code Description Data Skylar rce(s) Supporting Document(s) Thyrotropin [Units/volume] in Serum or Plasma 0.93 mIU/L Normal (applies to non-numeric results) [facility] Reference Range > or = 20 Years 0.40-4.50 Ranges First trimester 0.26-2.66 Second trimester 0.55-2.73 Third trimester 0.43-2.91 ID Date Data Source [id number] 03/01/2020 06:37:00 AM EST [facility] Received: 02/29/2020 at 11:02:00 QPT : [facility], [address], [address] [place], [phone], Paulino Santos MD Received: 02/29/2020 at 11:02:00 QPT : [facility], [address], [address] [place], [phone], Paulino Santos MD Received: 02/29/2020 at 11:02:00 QPT : [facility], [address], [address] [place] [address], [phone], Paulino Santos MD Received: 02/29/2020 at 11:02:00 QPT : [facility], [address], [address] [place] [address], [phone], Paulino Santos MD Received: 02/29/2020 at 11:02:00 QPT : [facility], [address], [address] [place], [phone], Paulino Santos MD Name Value Range Interpretation Code Description Data Skylar rce(s) Supporting Document(s) Calcidiol [Mass/volume] in Serum or Plasma 33 ng/mL 30-10 0 Normal (applies to non-numeric results) [facility] Vitamin D Status 25-OH Vitamin D :Deficiency: <20 ng/mLInsufficiency: 20 - 29 ng/mLOptimal: > or = 30 ng/mLFor 25-OH Vitamin D testing on patients onD2-supplementation and patients for whom quantitationof D2 and D3 fractions is required, the [facility])25- OH VIT D, (D2,D3), LC/MS/MS is recommended: ordercode [id number] (patients >2yrs).See Note 1 Your request to have a duplicate copy faxed has been acknowledged. Queued to: [id number] additional information, please refer [email or web address](This link is being provided for informational/educational purposes only.) ID Date Data Source [id number] 07/20/2019 06:50:00 PM EDT [facility] ED Physician Documentation NAME: JOANNA TYLER : 1990 AGE: 29 MR#: [id number] SERVICE DATE: 07/20/[address]: Cassidy Ascencio MD PRIMARY CARE DR: No Family PHYS Provided ROOM#: [facility] (Adult, General) General Chief Complaint: Skin/integument Stated Complaint: SWOLLEN FINGER Resident LTC, travel outisde home, exposure to hot tubs:: No Time Seen by Provider: 07/20/19 18:53 Source: patient Exam Limitations: no limitations History of Present Illness Initial Comments: 29-year-old white female complaining of accidentally sat right middle finger in screen door last night. Noticed some abrasions of fingertip besides swelling and pain last tetanus 10 years ago denies any other injuries Timing/Duration: 24 hours Past Medical History Past Medical History: Nursing Past Medical History Has Been Reviewed Allergies/Home Meds Allergies Allergy/AdvReac Type Severity Reaction Status Date / Time oxycodone HCl [From Percocet] AdvReac Mild Dizzyness Verified 07/20/19 18:23 Home Medications Medication Instructions Recorded Confirmed Last Taken Type No Known Home Medications 06/18/15 07/20/19 Unknown History cephalexin [Keflex] 500 mg PO Q6HR 7 Days #28 cap 07/20/19 Unknown Rx Pain Assessment Pain Location: Middle finger right Pain Description: Throbbing and Constant Pain Pain Intensity: 4 Pain Scale Used: Numeric Scale Pain Radiation Location: None ER plan Plan of care and ER treatment: An ER treatment plan was discussed with patient and family, Patient encouraged to ask questions about plan and ER treatments and Patient agrees with ER plan of care PMH (from Triage) Patient Medical History PMH Reviewed/Updated as Needed: Yes PMH/PSH from Triage: Medical History Hypoglycemia (Medical) Surgical History (Updated 07/20/19 @ 18:24 by Candis Price) section (Surgical) x2 Hx of appendectomy (Acute Surgical) Z90.49 Umbilical hernia (Surgical 06/19/15) Dr Aleman removed, hernia repaired Female History LMP:: 3 weeks ago Hx Drug Resistant Infections Hx MRSA: (Methicillin-resistant Staphylococcus aureus): No Hx C.Diff: No Hx CRKP: No Hx Other Resistant Infection?: No Isolation: Standard precautions Hx Recent Travel Hx Fever: No Nurse screening for coronavirus: Recent Travel outside the No country (where) Has patient experienced No coronavirus symptoms Social History Are you in a relationship with/Does anyone hit you, yell/swear at you, steal from you?: No Substance Use Hx Substance Use: No Second Hand Smoke Exposure: No Smoking Status: Never smoker Vaccination History Hx/Date of Influenza Vaccination: No Hx/Date of Pneumococcal Vaccination: No Immunizations Up to Date: Yes ROS Review of Systems Constitutional: Denies fever and chills Gastrointestinal: Denies nausea and vomiting Musculoskeletal: Reports other (See HPI) Neurologic: Denies weakness and numbness Hematological/Lymphatic: Reports No Symptoms/Complaints Allergic/Immunologic: Reports No Symptoms/Complaints Physical Exam General Physical Exam Narrative: White female no acute distress Limitations: no limitations General appearance: alert and in no apparent distress Head Head exam: Present atraumatic, normocephalic and normal inspection Neck Neck exam: Present normal inspection, full ROM and supple Extremities Exam Extremities exam: Present other (Right middle finger dorsum several abrasions between under right nailbed and dip, nailbed has small amount of collection of blood under nail) Neurological Exam Neurological exam: Present alert and oriented X3 Psychiatric Psychiatric exam: Present normal affect and normal mood Skin Skin exam: Present warm and dry Vital Signs Vital Signs: Vital Signs 07/20/19 18:15 Temperature 97.8 F Pulse Rate 84 Respiratory Rate 18 Blood Pressure 113/66 O2 Sat by Pulse Oximetry 98 MDM (comprehensive) Medical Decision Making Free Text/Narative:: 29-year-old white female injury to right middle finger X-ray no fractures Discussed with patient x-ray findings Explained to patient may have early mild cellulitis Will place on antibiotics Also explained at the present time does not need to have drainage of blood under the fingernail Will have nursing staff apply metal foam splint Discharge Plan Admission/Discharge Dx Primary DC Diagnosis: Contusion right middle finger, multiple abrasion right middle finger, possible early cellulitis right middle finger, subungual hematoma ED Provider: Cassidy Ascencio ED Status: Physician Time Seen by Provider: 07/20/19 18:53 Triaged At: 07/20/19 17:54 Condition Condition: Stable Discharge Detail Disposition: Home, Self-Care Med Rec New Prescriptions: New cephalexin [Keflex] 500 mg capsule 500 mg PO Q6HR 7 Days Qty: 28 RF: 0 No Action No Known Home Medications RF: 0 Discharge Education Printouts: Subungual Hematoma (ED), Cellulitis (ED), Contusion in Adults (ED) Medications Medication reconciliation performed by provider at discharge: Yes Follow Up Care/Instructions Diet/Activity/Wound Care..: Take antibiotics as directed Clean area twice daily with mild soapy water Follow-up your doctor Tuesday for reevaluation Wear splint as needed Take Advil or Tylenol as directed for pain *Discharge Patient* Discharge Orders: Discharge Order (Routine); Ordered 07/20/19 Ordered By: Cassidy Ascencio Report Signers: <Electronically signed by Cassidy Ascencio MD> Cassidy Ascencio MD 07/20/191912 Cassidy Ascencio MD SIGNATURE DA Report Cosigners: D: DIBMI 07/20/191849 T: DIBMI 07/20/191849 CC: No Family PHYS Provided Name Value Range Interpretation Code Description Data Skylar rce(s) Supporting Document(s) ID Date Data Source [id number] 07/20/2019 06:46:00 PM EDT [facility] [address] [place] [address] [phone] NAME SEX PT STATUS ACCOUNT NUMBER JOANNA TYLER [facility] ER [id number] ORDERING PHYSICIAN LOCATION MEDICAL RECORD NO. Cassidy Ascencio MD ER [id number] ATTENDING PHYSICIAN DATE OF DATE OF EXAM/TIME Doctor Provided,No Family 1990 07/20/191845 TYPE / EXAM Xray Hand Complete RT REASON FOR EXAM Trauma Clinical History/Indication for Exam: Trauma RADIOGRAPHS OF THE RIGHT HAND COMPLETE 3 OR MORE VIEWS INDICATION: Trauma Frontal, lateral and oblique views of the right hand. COMPARISON: No relevant prior studies available. FINDINGS: Bones/joints: No fracture, bone lesion, or dislocation is seen. Joint spaces of the hand appear maintained. Normal appearance of the carpus. Soft tissues: Normal. No radiopaque foreign body. IMPRESSION: Normal right hand x-rays. REPORT SIGNATURE ON FILE 07/20/2019 (18:46 Eastern Time ) Signed by: Leonardo Hightower M.D. Reported By Leonardo Hightower MD on 07/20/191845 Signed By Leonardo Hightower MD on 07/20/191845 Date Time CC: Leonardo Hightower MD; No Family PHYS Provided Techn: CUMME Trans Dt/Tm: Trans by: DT Prt Dt/Tm: : Total DLP = 0.00 mGy-cm Fluoroscopy Time (in secs): Name Value Range Interpretation Code Description Data Skylar rce(s) Supporting Document(s) Procedure Social History Code Duration Value Status Description Data Source(s ) 07/20/2019 07:03:03 PM EDT No completed No [facility] Smoking 07/20/2019 07:03:00 PM EDT Never smoker completed Never s [facility] Vital Signs ID Date Data Source UNK Name Value Range Interpretation Code Description Data Source(s) Oxygen saturation in Arterial blood by Pulse oximetry 98 % 98 % [facility] ([facility] Body mass index (BMI) [Ratio] 27.8 kg/m2 27.8 k g/m2 [facility] ([facility] [place] body weight 125 [lb_av] 125 [lb_av] MEDEN T ([facility] Body weight 167.00 [lb_av] 167.00 [lb_av] MEDEN T ([facility] Body height 65 [in_i] 65 [in_i] [facility] ([facility] 5'5" Respiratory rate 16 /min 16 /min [facility] ( [facility] Heart rate 100 /min 100 /min [facility] ([facility] Body temperature 98.5 [degF] 98.5 [degF] [facility] Diastolic blood pressure 90 mm[Hg] 90 mm[Hg] [facility] ([facility] Systolic blood pressure 142 mm[Hg] 142 mm[Hg] [facility] Body mass index (BMI) [Ratio] 25.0 kg/m2 25.0 k g/m2 [facility] ([facility]) Body height 65 [in_i] 65 [in_i] [facility] ([facility]) 5'5" Body weight 150.00 [lb_av] 150.00 [lb_av] MEDEN T ([facility]) Body temperature 98.3 [degF] 98.3 [degF] [facility] ([facility]) Oxygen saturation in Arterial blood by Pulse oximetry 99 % 99 % [facility] ([facility]) Respiratory rate 16 /min 16 /min [facility] ( [facility]) Heart rate 83 /min 83 /min [facility] ([facility]) Diastolic blood pressure 69 mm[Hg] 69 mm[Hg] [facility] ([facility]) Systolic blood pressure 94 mm[Hg] 94 mm[Hg] [facility] ([facility])
[2020-03-06] MEDS ORDERED: ESCI10TA16 (15:26)
[2020-03-06] MEDS ORDERED: HYDR-3363 (15:26)
--- OUTSIDE RECORDS SUMMARY | 2020-03-06 16:10 | CCD ---
Author Author [facility] Organization [facility] Address Unknown Phone Unavailable Support Name Relationship Address Phone NICOLE SCRUGGS Next Of Kin [address] [place] [address] UE Next Of Kin Unknown Unavailable SELF EMPLOYED Next Of Kin Unknown Unavailable MANAS URE[place] [address] TEXARYA Next Of Kin [address] [place] [address] LIDA POOL Next Of Kin [address] [place] [address] TGIFS Next Of Kin [address] [facility] [place] [place] [address] ALDO MADDOX Next Of Kin [address] [place] [address] [place] [address] TABITHA BOONE Next Of [address] [place] [address] CAMILA POOL Next Of [address] [place] [address] [place] [address] [place] [address] YANE ALBARRAN Next Of Kin [address] [address] [place] [address] FXCAPRARA Next Of Kin [address] [place] [address] NONE, PT PER Next Of Kin - -, - - - PT WILL ADD CONTACT, 06/18/15 ON Next Of Kin Unknown U navailable [place] [address] - DAYCARE Next Of Kin [address] [place] [address] UN Next Of Kin Unknown Unavailable HUNT [place] [address] SE/DAYCARE Next Of Kin [address] [place] [address] SE Next Of Kin Unknown Unavailable [place] [address] CELL ESTEFANIA TYLER Next Of Kin [address] [place] [address] Care Team Providers Care Customer Experience Leader Name Role Phone Barraclough, Kell PA Unavailable [...] CASSIDY PA Unavailable Unavailable LETTIERE, A CASSIDY TRIVEDI Unavailable Unavailable DiBella, P Cassidy SMYTH Unavailable Unavailable DiBella, P Cassidy SMYTH Unavailable Unavailable DiBella, P Cassidy SMYTH Unavailable Unavailable DiBella, P Cassidy SMYTH Unavailable Unavailable DiBella, P Cassidy SMYTH Unavailable Unavailable DiBella, P Cassidy SMYTH Unavailable Unavailable Re-disclosure Warning The records that [...] is protected by Article 27-F of the [facility] Public Health law. If you continue you may have access to information: Regarding HIV / AIDS; Provided by facilities licensed or operated by the [facility] Office of Mental Health; or Provided by the [facility] Office for People With Developmental Disabilities. If such information is present, then the following [facility] mandated warning applies: This information has [...] law may result in a fine or fpc sentence or both. A general authorization for the release of medical or other information is NOT sufficient authorization for further disc losure. Allergies and Adverse Reactions Type Description Substance Reaction Status Data Source(s ) Drug allergy oxycodone HCl oxycodone HCl Dizzyness [place] [facility] Family History Family Member Name Family Member Gender Family Member Status Date o f Status Description Data Source(s) Unknown Condition [facility] Encounters Encounter Providers Location Date Indications Data Source(s ) Outpatient Attender: Kell Pichardo ce 02/28/2020 07:45:00 AM EST [facility] ([facility] Emergency Attender: Cassidy Ascencio MDAttender: Nina hawley MD 07/20/2019 05:52:00 PM EDT - 07/20/2019 07:15:00 PM EDT [facility]ING[facility] Patient discharged. Outpatient Attender: CASSIDY keey 01/12/2019 07:40:00 AM EST [facility] ([facility] Immunizations Vaccine Date Status Description Data Source(s) Tdap 07/20/2019 12:00:00 AM EDT completed tetan us, diphtheria, acell pertussis 7yrs &up [facility] Medications Medication Brand Name Start Date Product [...] 02/28/2020 12:00:00 AM EST ORAL active [facility] ([facility] Escitalopram 10 MG Oral Tablet [Lexapro] Lexapro 02/28/2020 12:00: 00 AM EST ORAL active [facility] ([facility] 25 mg 02/28/2020 12:00:00 [...] 01/12/2019 12:00:00 AM EST OPHTHALMIC active [facility] ([facility]) Insurance Providers Payer name Policy type / Coverage type Policy ID Covered green party ID Covered green party's relationship to escalante Policy Escalante Plan Information [facility] [id number] SP [id number] [facility] O [id number] S [id number] [facility] Health Maintenance Organization (O) [id number] Self [id number] [facility] Community Plan Commercial [id number] Self [id number] [facility] Workers Compensation [id number] Self [id number] [facility] Health Maintenance Organization (O) [id number] Self [id number] [facility] Health Maintenance Organization (O) [id number] Self [id number] [facility] Workers Compensation [id number] Self [id number] [facility] Health Maintenance Organization ([facility]) [id number] Self [id number] [facility] Workers Compensation [id number] Self [id number] [facility] COMMUNITY PLAN [facility] [id number] SP [id number] [facility] PLAN [facility] [id number] SP [id number] [facility] [id number] SP [id number] [employer] [place] PPO 302/307 [id number] SP [id number] [employer] [place] PPO 302/[id number] SP [id number] SELF PAY ONLY UNAVAILABLE SP UNAV [facility] INSURANCE [facility] [id number] SP [id number] [facility] INSURANCE FUND O [id number] S [id number] STATE INSURANCE FUND UNAVAILABLE SP UNAVAILABLE FX CAPRARA O [id number] S [id number] FX CAPRARA O [id number] S [id number] FX CAPRARRA [id number] SP [id number] [facility] [id number] [id number] SELF PAY UNAVAILABLE SP UNAVAILA BLE [id number] Surgeries/Procedures Procedure Description Date Indications Data Source(s) Electrocardiogram Complete 02/28/2020 12:00:00 AM EST [facility] ([facility] Xray Hand Complete RT 07/20/2019 06:46:00 PM EDT [facility] Results ID Date Data Source [id number] 03/01/2020 06:37:00 AM EST [facility] Received: 02/29/2020 at 11:02:00 QPT : [facility], [address], [address] [place] [address], [phone], Paulino Santos MD Received: 02/29/2020 at 11:02:00 QPT : [facility] [address], [address] [place] [address], [phone] MD Received: 02/29/2020 at 11:02:00 QPT : [facility] [address], [address] [place] [address], [phone] MD Received: 02/29/2020 at 11:02:00 QPT : [address], [address] [place] [address], [phone] MD Received: 02/29/2020 at 11:02:00 QPT : [address], [address] [place] [address], [phone] MD Name Value Range Interpretation Code Description Data Skylar rce(s) Supporting Document(s) ID Date Data Source [id number] 03/01/2020 06:37:00 AM EST [facility] Received: 02/29/2020 at 11:02:00 QPT : [facility], [address], [address] [place], [address], Paulino Santos MD Received: 02/29/2020 at 11:02:00 QPT : [facility], [address], [address] [place], [phone] MD Received: 02/29/2020 at 11:02:00 QPT : [facility], [address], [address] [place], [phone], Paulino Santos MD Received: 02/29/2020 at 11:02:00 QPT : [facility], [address], [address] [place], [address], Paulino Santos MD Received: 02/29/2020 at 11:02:00 QPT : [facility], [address], [address] [place], [address], Paulino Santos MD Name Value Range Interpretation [...] [facility] ID Date Data Source [id number] 03/01/2020 06:37:00 AM EST [facility] Received: 02/29/2020 at 11:02:00 QPT : [facility] [address], [address] [facility], [place], [phone], Paulino Santos MD Received: 02/29/2020 at 11:02:00 QPT : [facility], [address], [address] [place], [address], Paulino Santos MD Received: 02/29/2020 at 11:02:00 QPT : [facility], [address], [address] [place], [phone], Paulino Santos MD Received: 02/29/2020 at 11:02:00 QPT : [facility], [address], [address] [place], [address], Paulino Santos MD Received: 02/29/2020 at 11:02:00 QPT : [facility], [address], [address] [place], [address], Paulino Santos MD Name Value Range Interpretation [...] mean volume [Entitic volume] in Blood by [facility] 12. 0 fL 7.5-12.5 Normal (applies to non-numeric results) [facility] Neutrophils [#/volume] in Blood by Automated count 2146 cells/uL [id number] Normal (applies to non-numeric results) [facility] [...] results) [facility] ID Date Data Source [id number] 03/01/2020 06:37:00 AM EST [facility] Received: 02/29/2020 at 11:02:00 QPT : [facility] [address], [address] [place] [address], [phone], Paulino Santos MD Received: 02/29/2020 at 11:02:00 QPT : [facility] [address], [address] [place] [address], [phone], Paulino Santos MD Received: 02/29/2020 at 11:02:00 QPT : [facility], [address] [place] [address], [phone] MD Received: 02/29/2020 at 11:02:00 QPT : [facility], [address], [address] [place] [address], [phone] MD Received: 02/29/2020 at 11:02:00 QPT : [facility], [address], [address] [place] [address], [phone], Paulino Santos MD Name Value Range Interpretation Code Description Data Skylar rce(s) Supporting Document(s) Thyroxine (T4) free [Mass/volume] in Serum or Plasma 1.1 ng/dL 0.8-1.8 Normal (applies to non-numeric results) [facility] ID Date Data Source [id number] 03/01/2020 06:37:00 AM EST [facility] Received: 02/29/2020 at 11:02:00 QPT : [facility], [address], [address] [place] [address], [phone] MD Received: 02/29/2020 at 11:02:00 QPT : [facility], [address], [address] [place] [address], [phone] MD Received: 02/29/2020 at 11:02:00 QPT : [facility], [address], [address] [place] [address], [phone] MD Received: 02/29/2020 at 11:02:00 QPT : [facility], [address], [address] [place] [address], [phone] MD Received: 02/29/2020 at 11:02:00 QPT : [facility] [facility], [address] [place] [address], [phone] MD Name Value Range Interpretation Code Description Data Skylar rce(s) Supporting Document(s) Thyrotropin [Units/volume] in Serum or Plasma 0.93 mIU/L Normal (applies to non-numeric results) [facility] Reference Range > or = 20 Years 0.40-4.50 Ranges First trimester 0.26-2.66 Second trimester 0.55-2.73 Third trimester 0.43-2.91 ID Date Data Source [id number] 03/01/2020 06:37:00 AM EST [facility] Received: 02/29/2020 at 11:02:00 QPT : [facility], [address], [address] [place], [address], Paulino Santos MD Received: 02/29/2020 at 11:02:00 QPT : [facility], [address], [address] [place] [address], [phone], Paulino Santos MD Received: 02/29/2020 at 11:02:00 QPT : [facility], [address], [address] [place] [address], [phone], Paulino Santos MD Received: 02/29/2020 at 11:02:00 QPT : [facility], [address], [address] [place] [address], [phone], Paulino Santos MD Received: 02/29/2020 at 11:02:00 QPT : [facility], [address], [address] [place] [address], [phone], Paulino Santos MD Name Value Range Interpretation Code Description Data Skylar rce(s) Supporting Document(s) Calcidiol [Mass/volume] in Serum or Plasma 33 ng/mL 30-10 0 Normal (applies to non-numeric results) [facility] Vitamin D Status 25-OH Vitamin D :Deficiency: <20 ng/mLInsufficiency: 20 - 29 ng/mLOptimal: > or = 30 ng/mLFor 25-OH Vitamin D testing on patients onD2-supplementation and patients for whom quantitationof D2 and D3 fractions is required, the Quest[facility]ure[facility](TM)25- OH VIT D, (D2,D3), LC/MS/MS is recommended: ordercode [id number] (patients >2yrs).See Note 1 Your request to have a duplicate copy faxed has been acknowledged. Queued to: [id number] 1For additional information, please refer [email or web address](This link is being provided for informational/educational purposes only.) ID Date Data Source [id number] 07/20/2019 06:50:00 PM EDT [facility] ED Physician Documentation NAME: JOANNA TYLER : 1990 AGE: 29 MR#: [id number] SERVICE DATE: 07/20/[address]: Cassidy Ascencio MD PRIMARY CARE DR: No Family PHYS Provided ROOM#: HPI (Adult, General) General Chief Complaint: Skin/integument Stated [...] by Cassidy Ascencio MD> Cassidy Ascencio MD 07/20/19 191 Cassidy Ascencio MD SIGNATURE DA Report Cosigners: D: FENG 07/20/191849 T: LINUSMI 07/20/191849 CC: No Family PHYS Provided Name Value Range Interpretation Code Description Data Skylar rce(s) Supporting Document(s) ID Date Data Source [id number] 07/20/2019 06:46:00 PM EDT [facility] [address] [facility] [place] [address] [phone] NAME SEX PT STATUS ACCOUNT NUMBER JOANNA TYLER REG ER [id number] ORDERING PHYSICIAN LOCATION MEDICAL RECORD NO. Cassidy Ascencio MD ER [id number] ATTENDING PHYSICIAN DATE OF DATE OF EXAM/TIME [...] 07/20/2019 07:03:03 PM EDT No completed No [facility] Smoking 07/20/2019 07:03:00 PM EDT Never smoker completed Never s [facility] Vital Signs ID Date Data Source UNK Name Value Range Interpretation Code Description Data Source(s) Oxygen saturation in Arterial blood by Pulse oximetry 98 % 98 % [facility] ([facility] Body mass index (BMI) [Ratio] 27.8 kg/m2 27.8 k g/m2 SAMIRA ([facility] [place] body weight 125 [lb_av] 125 [lb_av] LANETTE T ([facility] Body weight 167.00 [lb_av] 167.00 [lb_av] LANETTE T ([facility] Body height 65 [in_i] 65 [in_i] SAMIRA ([facility] 5'5" Respiratory rate 16 /min 16 /min SAMIRA ( [facility] Heart rate 100 /min 100 /min MEDENT ([facility] Body temperature 98.5 [degF] 98.5 [degF] [facility] ([facility] Diastolic blood pressure 90 mm[Hg] 90 mm[Hg] [facility] ([facility] Systolic blood pressure 142 mm[Hg] 142 mm[Hg] M EDENT ([facility] Body mass index (BMI) [Ratio] 25.0 kg/m2 25.0 k g/m2 [facility] ([facility]) Body height 65 [in_i] 65 [in_i] MEDENT ([facility]) 5'5" Body weight 150.00 [lb_av] 150.00 [lb_av] MEDEN T ([facility]) Body temperature 98.3 [degF] 98.3 [degF] [facility] ([facility]) Oxygen saturation in Arterial blood by Pulse oximetry 99 % 99 % [facility] ([facility]) Respiratory rate 16 /min 16 /min [facility] ( [facility]) Heart rate 83 /min 83 /min [facility] ([facility]) Diastolic blood pressure 69 mm[Hg] 69 mm[Hg] [facility] ([facility]) Systolic blood pressure 94 mm[Hg] 94 mm[Hg] [facility] ([facility])
[2020-03-06] MEDS ORDERED: NS 1,000 ML IV ONE (16:45)
[2020-03-06 17:20] LABS: BASO # 0.1 10^3/uL (0.0-0.2); BASO % 0.7 % (0.0-1.0); EOS % 0.4 % (0.0-3.0); HEMATOCRIT 43.2 % (36.0-47.0); HEMOGLOBIN 14.7 g/dl (12.0-15.5); LYMPH # 2.6 10^3/uL (1.5-5.0); LYMPH % 38.1 % (24.0-44.0); MEAN CORPUSCULAR HEMOGLOBIN 32.1 pg (27.0-33.0); MEAN CORPUSCULAR VOLUME 94.3 fl (80.0-96.0); MONO # 0.6 10^3/uL (0.0-0.8); MONO % 8.7 % (0.0-5.0); NEUTROPHILS # 3.5 10^3/uL (1.5-8.5); NEUTROPHILS % 51.8 % (36.0-66.0); PLATELET COUNT, AUTOMATED 265 10^3/uL (150-450); RED BLOOD COUNT 4.58 10^6/uL (4.00-5.40); WHITE BLOOD COUNT 6.8 10^3/uL (4.0-10.0)
[2020-03-06 17:47] LABS: HEMOGLOBIN A1c 4.7 %
[2020-03-06 17:53] LABS: CK-MB VALUE MASS 2.4 NG/ML (<3.6); CPK CREATINE PHOSPHOKINASE 346 U/L (26-192); FREE T4 0.84 NG/DL (0.76-1.46); MAGNESIUM LEVEL 1.7 MG/DL (1.8-2.4); MB/CK RELATIVE INDEX 0.69 (< OR =4); TROPONIN I < 0.02 NG/ML (< 0.10)
--- NOTE | 2020-03-06 18:09 | REPVR ---
PROCEDURE INFORMATION: Exam: CT Head Without Contrast Exam date and time: 03/06/2020 4:43 PM Age: 29 years old Clinical indication: Syncope and collapse TECHNIQUE: Imaging protocol: Computed tomography of the head without contrast. Axial and coronal reformatted images were created and reviewed. Radiation optimization: All CT scans at this facility use at least one of these dose optimization techniques: automated exposure control; mA and/or kV adjustment per patient size (includes targeted exams where dose is matched to clinical indication); or iterative reconstruction. COMPARISON: CT Head without contrast 08/01/2015 5:26 PM FINDINGS: Brain: No CT evidence of acute intracranial hemorrhage or acute territorial infarction. No significant mass effect or midline shift. Basal cisterns patent. Cerebral ventricles: Normal in size and configuration. Bones/joints: No acute osseous abnormality. Paranasal sinuses: Unremarkable. No fluid levels. Mastoid air cells: Grossly unremarkable. Soft tissues: Grossly unremarkable. IMPRESSION: No CT evidence of acute intracranial pathology. Electronically signed by: Sam Turpin On 03/06/2020 18:09:07 PM
--- NOTE | 2020-03-06 18:33 | ECGEPIP ---
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
[2020-03-06 20:10] VITALS: BP 135/91
== END 2020-03-06 20:31 | disposition home or self-care (01) ==
LOC: M ED 14:54
DX: E86.0 Dehydration (principal); R19.7 Diarrhea, unspecified; E16.2 Hypoglycemia, unspecified; R00.0 Tachycardia, unspecified

== ENCOUNTER → 2020-05-31 | Outpatient (CLI) | payer OTHER ==
[~2020-05-31] MED LIST changes: +ESCI10TA16; +HYDR-3363
--- NOTE | 2020-05-31 14:51 | REP ---
INDICATION: SWELLING OF RIGHT RING FINGER S/P TRAUMA. COMPARISON: Comparison right hand radiographs December 11, 2017.. TECHNIQUE: Four views of the right ring finger. FINDINGS: Four views of the right ring finger demonstrate a avulsion chip fracture from the radial aspect of the base of the distal phalanx at the DIP joint. Intra-articular chip fracture. There is lack of complete extension question extensor tendon injury.. . No opaque foreign body noted. IMPRESSION: Intra-articular chip fracture at the DIP joint of the long finger involving the base of the distal phalanx.. <Electronically signed by Red Persaud > 05/31/20 [id number]
== END ==
LOC: M RAD 14:16
PROVIDERS: ATTEND Physician Assistant Medical
DX: M79.89 Other specified soft tissue disorders (principal)

== ENCOUNTER 2020-06-08 02:10 | Emergency (ER) | payer OTHER ==
[~2020-06-08] VITALS: Ht 165.1 cm; Wt 81.8 kg
[~2020-06-08 02:10] MED LIST changes: -HYDR-3363; +HYDR-3363 PO
[2020-06-08 02:11] VITALS: BP 132/89
[2020-06-08] MEDS ORDERED: PROZ10CA7 PO (02:19)
== END 2020-06-08 03:55 | disposition left against medical advice (07) ==
LOC: M ED 02:10
DX: Z53.21 Procedure and treatment not carried out due to patient leaving prior to being seen by health care provider (principal)

== ENCOUNTER → 2020-08-09 | Outpatient (CLI) | payer OTHER ==
[~2020-08-09] MED LIST changes: +EMTR1TAB16 PO; +PROZ10CA7 PO; -TRUVTAB PO
--- NOTE | 2020-08-09 12:14 | REP ---
INDICATION: PAIN IN RIGHT WRIST COMPARISON: None. TECHNIQUE: AP, lateral, bilateral oblique views right wrist. FINDINGS: The carpal bones, surrounding osseous structures, soft tissues, and joint spaces are normal. There is no evidence for acute fracture or dislocation. No subcutaneous emphysema or radiodense foreign body. IMPRESSION: Normal wrist series. No acute fracture or dislocation. <Electronically signed by Otto Ramirez > 08/09/20 [id number]
--- NOTE | 2020-08-09 12:16 | REP ---
INDICATION: PAIN IN RIGHT WRIST COMPARISON: None. TECHNIQUE: AP, lateral, bilateral oblique views right hand. FINDINGS: Mild focal degenerative changes at the 2nd distal interphalangeal (DIP) joint include joint space narrowing with marginal spurring and mild overlying soft tissue swelling. Remainder of the examination is age-appropriate. No acute fracture or dislocation. IMPRESSION: Mild focal degenerative changes at the 2nd DIP joint. Otherwise normal examination. <Electronically signed by Otto Ramirez > 08/09/20 [id number]
== END ==
LOC: M RAD 11:53
PROVIDERS: ATTEND Physician Assistant
DX: M25.531 Pain in right wrist (principal); M79.641 Pain in right hand

== ENCOUNTER → 2021-07-30 | Outpatient (CLI) | payer MEDICAID ==
[~2021-07-30] MED LIST changes: -FLUC150T PO; +FLUC150T9 PO
== END ==
LOC: M OUTALCOH 08:05
PROVIDERS: ATTEND Psychiatry & Neurology Psychiatry
DX: Z02.9 Encounter for administrative examinations, unspecified (principal)

== ENCOUNTER 2021-08-12 08:00 | Outpatient (RCR) | payer MEDICAID | END 2021-08-13 | LOC: M OUTALCOH 08:00 | PROVIDERS: ATTEND Psychiatry & Neurology Psychiatry | DX: F10.10 Alcohol abuse, uncomplicated (principal) ==

== ENCOUNTER → 2021-09-04 | Outpatient (REF) | payer MEDICAID | LOC: M LAB REF 16:19 | PROVIDERS: ATTEND Physician Assistant | DX: J03.90 Acute tonsillitis, unspecified (principal) ==

== ENCOUNTER 2021-09-09 08:00 | Outpatient (RCR) | payer MEDICAID | END 2021-09-13 | LOC: M OUTALCOH 08:00 | PROVIDERS: ATTEND Psychiatry & Neurology Psychiatry | DX: F10.10 Alcohol abuse, uncomplicated (principal) ==

== ENCOUNTER 2021-10-13 16:00 | Outpatient (RCR) | payer MEDICAID | END 2021-10-14 | LOC: M OUTALCOH 16:00 | PROVIDERS: ATTEND Psychiatry & Neurology Psychiatry | DX: F10.10 Alcohol abuse, uncomplicated (principal) ==

== ENCOUNTER 2021-11-09 07:54 | Outpatient (RCR) | payer MEDICAID | END 2021-11-13 | LOC: M OUTALCOH 07:54 | PROVIDERS: ATTEND Psychiatry & Neurology Psychiatry | DX: F10.10 Alcohol abuse, uncomplicated (principal) ==

== ENCOUNTER → 2021-12-08 | Outpatient (CLI) | payer MEDICAID ==
[2021-12-08 17:42] LABS: BASO % 0.5 % (0.0-1.0); EOS # 0.1 10^3/uL (0.0-0.5); EOS % 1.7 % (0.0-3.0); HEMATOCRIT 42.9 % (36.0-47.0); HEMOGLOBIN 13.8 g/dl (12.0-15.5); LYMPH # 2.3 10^3/uL (1.5-5.0); MEAN CORPUSCULAR HEMOGLOBIN 31.3 pg (27.0-33.0); MEAN CORPUSCULAR HGB CONC 32.2 g/dl (32.0-36.5); MEAN CORPUSCULAR VOLUME 97.3 fl (80.0-96.0); MONO # 0.6 10^3/uL (0.0-0.8); MONO % 9.3 % (2.0-8.0); NEUTROPHILS % 50.2 % (36.0-66.0); PLATELET COUNT, AUTOMATED 211 10^3/uL (150-450); RED BLOOD COUNT 4.41 10^6/uL (4.00-5.40)
[2021-12-08 18:16] LABS: ERYTHROCYTE SEDIMENTATION RATE 13 mm/hr (0-20)
[2021-12-08 18:46] LABS: ALBUMIN 3.5 GM/DL (3.2-5.2); ALT/SGPT 21 U/L (12-78); BILIRUBIN,TOTAL 0.4 MG/DL (0.2-1.0); BLOOD UREA NITROGEN 10 MG/DL (7-18); CALCIUM LEVEL 8.7 MG/DL (8.5-10.1); CARBON DIOXIDE LEVEL 23 MEQ/L (21-32); CHLORIDE LEVEL 107 MEQ/L (98-107); GLOMERULAR FILTRATION RATE > 60.0 (>60); GLUCOSE, FASTING 86 MG/DL (70-100); POTASSIUM SERUM 4.1 MEQ/L (3.5-5.1); SODIUM LEVEL 137 MEQ/L (136-145); TOTAL PROTEIN 6.9 GM/DL (6.4-8.2)
== END ==
LOC: M WUC 11:24
PROVIDERS: ATTEND Physician Assistant
DX: M25.551 Pain in right hip (principal); M51.36 Other intervertebral disc degeneration, lumbar region; D53.9 Nutritional anemia, unspecified; R53.83 Other fatigue; G57.11 Meralgia paresthetica, right lower limb; M89.8X5 Other specified disorders of bone, thigh; M54.41 Lumbago with sciatica, right side

== ENCOUNTER 2022-02-23 02:03 | Emergency (ER) | payer MEDICAID, OTHER ==
[~2022-02-23] VITALS: Ht 165.1 cm; Wt 91.3 kg
[2022-02-23] MEDS ORDERED: NS 1,000 ML IV ONE (06:45)
[2022-02-23] MEDS ORDERED: KETOROLAC 30 MG/ML 1ML VIAL IV ONE (06:45)
[2022-02-23] MEDS ORDERED: METOCLOPRAMIDE INJ 10MG/2ML VIAL IV ONE (07:00)
[2022-02-23 07:49] LABS: BASO % 0.5 % (0.0-1.0); EOS # 0.1 10^3/uL (0.0-0.5); EOS % 1.1 % (0.0-3.0); HEMATOCRIT 45.8 % (36.0-47.0); HEMOGLOBIN 15.2 g/dl (12.0-15.5); LYMPH % 32.4 % (24.0-44.0); MEAN CORPUSCULAR HEMOGLOBIN 31.4 pg (27.0-33.0); MEAN CORPUSCULAR HGB CONC 33.2 g/dl (32.0-36.5); MEAN CORPUSCULAR VOLUME 94.6 fl (80.0-96.0); MONO # 0.7 10^3/uL (0.0-0.8); MONO % 11.1 % (2.0-8.0); NEUTROPHILS # 3.3 10^3/uL (1.5-8.5); NEUTROPHILS % 54.6 % (36.0-66.0); PLATELET COUNT, AUTOMATED 244 10^3/uL (150-450); RED BLOOD COUNT 4.84 10^6/uL (4.00-5.40); WHITE BLOOD COUNT 6.1 10^3/uL (4.0-10.0)
[2022-02-23] MEDS ORDERED: FIORICET TAB PO ONE (08:05)
[2022-02-23 08:19] LABS: ALBUMIN 3.7 G/DL (3.2-5.2); ALKALINE PHOSPHATASE 76 U/L (46-116); ALT/SGPT 35 U/L (7.0-40); AST/SGOT 36 U/L (<34); BILIRUBIN,DIRECT 0.1 MG/DL (<0.4); BILIRUBIN,TOTAL 0.5 MG/DL (0.3-1.2); TOTAL PROTEIN 6.7 G/DL (5.7-8.2)
[2022-02-23 08:28] LABS: HCG, SERUM QUALITATIVE NEGATIVE (NEGATIVE)
[2022-02-23 09:46] VITALS: BP 139/80
[2022-02-23] MEDS ORDERED: ONDA4TAB6 PO (09:50)
[2022-02-23] MEDS ORDERED: FIOR1CAP PO (09:50)
== END 2022-02-23 10:13 | disposition home or self-care (01) ==
LOC: M ED 02:03
DX: R51.9 Headache, unspecified (principal); E86.0 Dehydration; F41.9 Anxiety disorder, unspecified; Z79.891 Long term (current) use of opiate analgesic; Z79.899 Other long term (current) drug therapy
CPT/HCPCS: 70450; 80047; 80076; 84703; 85025; 96361; 96374; 96375; 99284; J1100

== ENCOUNTER 2022-10-02 11:18 | Emergency (ER) | payer OTHER ==
[~2022-10-02] VITALS: Ht 165.1 cm; Wt 86.4 kg
[2022-10-02 11:18] VITALS: BP 139/82; TEMP 98.6; O2SAT 96
[~2022-10-02 11:18] MED LIST changes: +FIOR1CAP PO; +LIDO15SO OR; -LIDO2SOL17 OR; +ONDA4TAB6 PO
[2022-10-02] MEDS ORDERED: TRAZ-186 PO (11:27)
== END 2022-10-02 12:44 | disposition home or self-care (01) ==
LOC: M ED 11:18
DX: S93.401A Sprain of unspecified ligament of right ankle, initial encounter (principal); W10.8XXA Fall (on) (from) other stairs and steps, initial encounter; Y92.009 Unspecified place in unspecified non-institutional (private) residence as the place of occurrence of the external cause; Y93.01 Activity, walking, marching and hiking; Y99.8 Other external cause status; F41.0 Panic disorder [episodic paroxysmal anxiety]; Z79.899 Other long term (current) drug therapy

== ENCOUNTER 2022-10-23 17:55 | Emergency (ER) | payer OTHER ==
[~2022-10-23] VITALS: Ht 165.1 cm; Wt 81.8 kg
[~2022-10-23 17:55] MED LIST changes: +TRAZ-186 PO
[2022-10-23 22:40] VITALS: BP 119/72; TEMP 97.3; O2SAT 98
== END 2022-10-23 22:41 | disposition home or self-care (01) ==
LOC: M ED 17:55
DX: S93.401A Sprain of unspecified ligament of right ankle, initial encounter (principal); W19.XXXA Unspecified fall, initial encounter; F41.0 Panic disorder [episodic paroxysmal anxiety]; Z79.899 Other long term (current) drug therapy

== ENCOUNTER 2022-10-30 23:56 | Emergency (ER) | payer OTHER ==
[~2022-10-30] VITALS: Ht 165.1 cm; Wt 100.0 kg
[2022-10-31] MEDS ORDERED: NS 1,000 ML IV ONE (02:55)
[2022-10-31] MEDS ORDERED: ONDANSETRON 4MG 2ML VIAL IV ONE (02:55)
[2022-10-31 02:56] LABS: BASO % 0.4 % (0.0-1.0); EOS % 0.1 % (0.0-3.0); HEMATOCRIT 43.8 % (36.0-47.0); HEMOGLOBIN 15.2 g/dl (12.0-15.5); LYMPH # 1.3 10^3/uL (1.5-5.0); LYMPH % 14.4 % (24.0-44.0); MEAN CORPUSCULAR HGB CONC 34.7 g/dl (32.0-36.5); MONO # 0.8 10^3/uL (0.0-0.8); MONO % 8.3 % (2.0-8.0); NEUTROPHILS % 76.5 % (36.0-66.0); PLATELET COUNT, AUTOMATED 195 10^3/uL (150-450); RED BLOOD COUNT 4.61 10^6/uL (4.00-5.40); WHITE BLOOD COUNT 9.2 10^3/uL (4.0-10.0)
[2022-10-31 03:24] LABS: LIPASE 30 U/L (12-53)
[2022-10-31 03:26] LABS: ALBUMIN 4.1 G/DL (3.2-5.2); ALKALINE PHOSPHATASE 106 U/L (46-116); ALT/SGPT 143 U/L (7.0-40); AST/SGOT 178 U/L (<34); BILIRUBIN,DIRECT 0.2 MG/DL (<0.4); BLOOD UREA NITROGEN 7 MG/DL (9-23); CALCIUM LEVEL 8.5 MG/DL (8.5-10.1); CARBON DIOXIDE LEVEL 23 MMOL/L (20-31); CHLORIDE LEVEL 98 MMOL/L (98-107); CREATININE FOR GFR 0.57 MG/DL (0.55-1.30); GLOMERULAR FILTRATION RATE > 60.0 (>60); GLUCOSE, FASTING 118 MG/DL (60-100); POTASSIUM SERUM 4.6 MMOL/L (3.5-5.1); SODIUM LEVEL 134 MMOL/L (136-145); TOTAL PROTEIN 7.8 G/DL (5.7-8.2)
[2022-10-31] MEDS ORDERED: KETOROLAC 30 MG/ML 1ML VIAL IV ONE (03:50)
[2022-10-31] MEDS ORDERED: PROMETHAZINE 25MG/ML 1ML VIAL IV ONE (03:50)
[2022-10-31] MEDS ORDERED: LORazepam 2 MG/ML 1ML VIAL IV STA (03:50)
[2022-10-31] MEDS ORDERED: ISOVUE-370 76% 100ML VIAL As Ordered ONE (04:03)
[2022-10-31 04:26] LABS: ETHYL ALCOHOL (ETHANOL) < 0.003 % (0.000-0.010)
[2022-10-31] MEDS ORDERED: OXAZEPAM 15MG CAP PO ONE (05:35)
[2022-10-31] MEDS ORDERED: OXAZ30CA2 PO (05:36)
[2022-10-31] MEDS ORDERED: ONDA4TAB6 PO (05:36)
[2022-10-31 05:58] VITALS: BP 142/84; TEMP 98.4; O2SAT 98
== END 2022-10-31 06:00 | disposition home or self-care (01) ==
LOC: M ED 23:56
DX: K52.9 Noninfective gastroenteritis and colitis, unspecified (principal); F10.139 Alcohol abuse with withdrawal, unspecified; Z79.83 Long term (current) use of bisphosphonates; Z79.899 Other long term (current) drug therapy
CPT/HCPCS: 74177; 80048; 80076; 82077; 83605; 83690; 84702; 85025; 87486; 87581; 87633; 87798; 93041; 96361; 96374; 96375; 99284; J1885; J2060; J2405; J2550; Q9967

== ENCOUNTER → 2023-03-10 | Outpatient (REF) | payer OTHER ==
[~2023-03-10] MED LIST changes: +OXAZ30CA2 PO
[2023-03-10 13:21] LABS: HEMATOCRIT 44.1 % (36.0-47.0); HEMOGLOBIN 14.5 g/dl (12.0-15.5); MEAN CORPUSCULAR HEMOGLOBIN 32.4 pg (27.0-33.0); MEAN CORPUSCULAR HGB CONC 32.9 g/dl (32.0-36.5); MEAN CORPUSCULAR VOLUME 98.7 fl (80.0-96.0); PLATELET COUNT, AUTOMATED 200 10^3/uL (150-450); RED BLOOD COUNT 4.47 10^6/uL (4.00-5.40); WHITE BLOOD COUNT 5.6 10^3/uL (4.0-10.0)
[2023-03-10 18:16] LABS: LIPASE 52 U/L (12-53)
[2023-03-10 18:18] LABS: ALBUMIN 3.5 G/DL (3.2-5.2); ALKALINE PHOSPHATASE 86 U/L (46-116); ALT/SGPT 18 U/L (7.0-40); AMYLASE 68 U/L (30-118); AST/SGOT 14 U/L (<34); BILIRUBIN,TOTAL 0.5 MG/DL (0.3-1.2); BLOOD UREA NITROGEN 9 MG/DL (9-23); CALCIUM LEVEL 8.8 MG/DL (8.5-10.1); CARBON DIOXIDE LEVEL 22 MMOL/L (20-31); CHLORIDE LEVEL 110 MMOL/L (98-107); CHOLESTEROL LEVEL 201 MG/DL (<200); CHOLESTEROL RISK RATIO 2.88 (<5); CREATININE FOR GFR 0.63 MG/DL (0.55-1.30); GLOMERULAR FILTRATION RATE > 60.0 (>60); GLUCOSE, FASTING 89 MG/DL (60-100); HDL CHOLESTEROL 69.6 MG/DL (>40); LDL CHOLESTEROL 117.8 MG/DL (<100); NON-HDL-C 131.4 MG/DL; POTASSIUM SERUM 4.7 MMOL/L (3.5-5.1); SODIUM LEVEL 132 MMOL/L (136-145); TOTAL PROTEIN 6.9 G/DL (5.7-8.2); TRIGLYCERIDES LEVEL 68 MG/DL (<150)
[2023-03-10 18:20] LABS: FOLATE 22.9 NG/ML (>5.4); THYROID STIMULATING HORMONE 2.293 uIU/ML (0.55-4.78); VITAMIN B12 LEVEL 638 PG/ML (211-911)
== END ==
LOC: M LABWUC 12:04
PROVIDERS: ATTEND Physician Assistant
DX: F10.10 Alcohol abuse, uncomplicated (principal)

== ENCOUNTER 2023-04-17 10:51 | Emergency (ER) | payer OTHER ==
[~2023-04-17] VITALS: Ht 165.1 cm; Wt 99.7 kg
[~2023-04-17 10:51] MED LIST changes: -LIDO15SO OR; +LIDO15SO8 OR
[2023-04-17] MEDS: NS 1,000 ML IV ONE (13:36)
[2023-04-17] MEDS: ONDANSETRON 4MG 2ML VIAL IV ONE (13:36)
[2023-04-17 13:52] LABS: BASO % 0.4 % (0.0-1.0); EOS % 0.1 % (0.0-3.0); HEMATOCRIT 43.2 % (36.0-47.0); HEMOGLOBIN 15.2 g/dl (12.0-15.5); LYMPH # 1.2 10^3/uL (1.5-5.0); LYMPH % 14.4 % (24.0-44.0); MEAN CORPUSCULAR HEMOGLOBIN 32.8 pg (27.0-33.0); MEAN CORPUSCULAR HGB CONC 35.2 g/dl (32.0-36.5); MEAN CORPUSCULAR VOLUME 93.3 fl (80.0-96.0); MONO # 0.6 10^3/uL (0.0-0.8); MONO % 7.3 % (2.0-8.0); NEUTROPHILS # 6.2 10^3/uL (1.5-8.5); NEUTROPHILS % 77.5 % (36.0-66.0); PLATELET COUNT, AUTOMATED 231 10^3/uL (150-450); RED BLOOD COUNT 4.63 10^6/uL (4.00-5.40)
[2023-04-17 14:13] LABS: ALBUMIN 4.2 G/DL (3.2-5.2); BILIRUBIN,DIRECT 0.2 MG/DL (<0.4); BILIRUBIN,TOTAL 1.2 MG/DL (0.3-1.2)
[2023-04-17 14:57] VITALS: BP 143/71; TEMP 97.6; O2SAT 99
[2023-04-17] MEDS: KETOROLAC 30 MG/ML 1ML VIAL IV ONE (15:25)
[2023-04-17] MEDS: METOCLOPRAMIDE INJ 10MG/2ML VIAL IV ONE (15:25)
[2023-04-17] MEDS ORDERED: REGL10TA6 PO (17:05)
[2023-04-17] MEDS: METOCLOPRAMIDE 10MG TAB PO ONE (17:16)
== END 2023-04-17 17:20 | disposition home or self-care (01) ==
LOC: M ED 11:43
DX: R11.2 Nausea with vomiting, unspecified (principal); E16.2 Hypoglycemia, unspecified; F10.10 Alcohol abuse, uncomplicated; Z79.899 Other long term (current) drug therapy
CPT/HCPCS: 76705; 80047; 80076; 83690; 84702; 85025; 96361; 96374; 96375; 99284; J1885; J2405; J2765

== ENCOUNTER 2023-04-29 16:58 | Emergency (ER) | payer OTHER ==
[~2023-04-29] VITALS: Ht 165.1 cm; Wt 127.3 kg
[2023-04-29 17:07] VITALS: TEMP 99
[2023-04-29] MEDS: hydrOXYzine 50 MG TAB PO STA (17:33)
[2023-04-29] MEDS: ALPRAZolam 0.5 MG TAB PO ONE (18:21)
[2023-04-29 19:01] VITALS: BP 138/86; O2SAT 96
== END 2023-04-29 19:02 | disposition home or self-care (01) ==
LOC: M ED 16:58
DX: F41.0 Panic disorder [episodic paroxysmal anxiety] (principal); E11.9 Type 2 diabetes mellitus without complications; N80.9 Endometriosis, unspecified; F10.10 Alcohol abuse, uncomplicated

== ENCOUNTER 2023-06-14 03:43 | Emergency (ER) | payer OTHER ==
[~2023-06-14] VITALS: Ht 165.1 cm; Wt 102.1 kg
[2023-06-14 03:43] VITALS: TEMP 97.3
[2023-06-14] MEDS: NS 1,000 ML IV ONE (05:00)
[2023-06-14] MEDS ORDERED: LORazepam 2 MG TAB PO PRN (05:00)
[2023-06-14 05:08] LABS: HEMATOCRIT 45.2 % (36.0-47.0); HEMOGLOBIN 15.9 g/dl (12.0-15.5); MEAN CORPUSCULAR HEMOGLOBIN 33.3 pg (27.0-33.0); MEAN CORPUSCULAR HGB CONC 35.2 g/dl (32.0-36.5); MEAN CORPUSCULAR VOLUME 94.6 fl (80.0-96.0); PLATELET COUNT, AUTOMATED 212 10^3/uL (150-450); RED BLOOD COUNT 4.78 10^6/uL (4.00-5.40); WHITE BLOOD COUNT 4.6 10^3/uL (4.0-10.0)
[2023-06-14] MEDS: LORazepam 2 MG/ML 1ML VIAL IV STA (05:10)
[2023-06-14] MEDS: ONDANSETRON 4MG 2ML VIAL IV ONE (05:10)
[2023-06-14 05:24] LABS: ETHYL ALCOHOL (ETHANOL) 0.134 % (0.000-0.010); HCG, SERUM QUALITATIVE NEGATIVE (NEGATIVE)
[2023-06-14 05:28] LABS: ALBUMIN 3.9 G/DL (3.2-5.2); ALKALINE PHOSPHATASE 106 U/L (46-116); ALT/SGPT 83 U/L (7.0-40); AST/SGOT 122 U/L (<34); BILIRUBIN,DIRECT 0.3 MG/DL (<0.4); BILIRUBIN,TOTAL 0.7 MG/DL (0.3-1.2); BLOOD UREA NITROGEN 9 MG/DL (9-23); CALCIUM LEVEL 8.8 MG/DL (8.5-10.1); CARBON DIOXIDE LEVEL 20 MMOL/L (20-31); CHLORIDE LEVEL 102 MMOL/L (98-107); CREATININE FOR GFR 0.53 MG/DL (0.55-1.30); GLOMERULAR FILTRATION RATE > 60.0 (>60); GLUCOSE, FASTING 155 MG/DL (60-100); POTASSIUM SERUM 5.4 MMOL/L (3.5-5.1); SODIUM LEVEL 137 MMOL/L (136-145); TOTAL PROTEIN 8.1 G/DL (5.7-8.2)
[2023-06-14] MEDS ORDERED: LORazepam 2 MG/ML 1ML VIAL IV STA (06:12)
[2023-06-14] MEDS: OXAZEPAM 15MG CAP PO ONE (06:33)
[2023-06-14] MEDS: THIAMINE 100 MG TAB PO SCH (06:33)
[2023-06-14 07:10] LABS: AMPHETAMINES LEVEL URINE NEGATIVE (NEGATIVE); BARBITURATES URINE NEGATIVE (NEGATIVE)
[2023-06-14 07:11] LABS: BENZODIAZEPINES URINE NEGATIVE (NEGATIVE); CANNABINOIDS URINE NEGATIVE (NEGATIVE); COCAINE METABOLITE URINE NEGATIVE (NEGATIVE); METHADONE URINE NEGATIVE (NEGATIVE); OPIATES URINE NEGATIVE (NEGATIVE); PHENCYCLIDINE URINE NEGATIVE (NEGATIVE)
[2023-06-14 08:00] VITALS: O2SAT 94
[2023-06-14] MEDS ORDERED: OXAZ10CA3 PO (08:31)
[2023-06-14 08:33] VITALS: BP 103/58
[2023-06-14] MEDS ORDERED: FOLIC ACID 1MG TAB PO SCH (09:00)
[2023-06-14] MEDS ORDERED: MULTIVITAMINS/MINERALS THERAP 1 TAB PO SCH (09:00)
== END 2023-06-14 09:26 | disposition home or self-care (01) ==
LOC: M ED 03:43
DX: F10.130 Alcohol abuse with withdrawal, uncomplicated (principal); F12.10 Cannabis abuse, uncomplicated; Z79.899 Other long term (current) drug therapy
CPT/HCPCS: 80048; 80076; 80307; 82077; 84703; 85027; 93005; 96361; 96374; 99284; J2060; J2405

== ENCOUNTER 2023-08-05 02:43 | Emergency (ER) | payer OTHER ==
[~2023-08-05] VITALS: Ht 165.1 cm; Wt 98.5 kg
[~2023-08-05 02:43] MED LIST changes: +ONDA-282 PO; -ONDA4TAB6 PO; +OXAZ10CA3 PO
[2023-08-05] MEDS: NS 1,000 ML IV ONE (03:36)
[2023-08-05] MEDS: LORazepam 2 MG/ML 1ML VIAL IV STA (03:36)
[2023-08-05 03:38] LABS: BASO % 0.6 % (0.0-1.0); EOS # 0.1 10^3/uL (0.0-0.5); EOS % 1.1 % (0.0-3.0); HEMATOCRIT 42.5 % (36.0-47.0); HEMOGLOBIN 14.7 g/dl (12.0-15.5); LYMPH # 3.9 10^3/uL (1.5-5.0); LYMPH % 54.2 % (24.0-44.0); MEAN CORPUSCULAR HEMOGLOBIN 32.4 pg (27.0-33.0); MEAN CORPUSCULAR HGB CONC 34.6 g/dl (32.0-36.5); MEAN CORPUSCULAR VOLUME 93.6 fl (80.0-96.0); MONO # 0.5 10^3/uL (0.0-0.8); MONO % 7.5 % (2.0-8.0); NEUTROPHILS # 2.6 10^3/uL (1.5-8.5); NEUTROPHILS % 36.3 % (36.0-66.0); PLATELET COUNT, AUTOMATED 213 10^3/uL (150-450); RED BLOOD COUNT 4.54 10^6/uL (4.00-5.40); WHITE BLOOD COUNT 7.2 10^3/uL (4.0-10.0)
[2023-08-05 04:03] LABS: ETHYL ALCOHOL (ETHANOL) 0.208 % (0.000-0.010)
[2023-08-05 04:04] LABS: SALICYLATE LEVEL < 3.0 MG/DL (<30)
[2023-08-05 04:05] LABS: ALBUMIN 3.6 G/DL (3.2-5.2); ALKALINE PHOSPHATASE 127 U/L (46-116); ALT/SGPT 21 U/L (7.0-40); AST/SGOT 18 U/L (<34); BILIRUBIN,DIRECT < 0.1 MG/DL (<0.4); BILIRUBIN,TOTAL 0.4 MG/DL (0.3-1.2); BLOOD UREA NITROGEN 11 MG/DL (9-23); CALCIUM LEVEL 8.1 MG/DL (8.5-10.1); CARBON DIOXIDE LEVEL 24 MMOL/L (20-31); CHLORIDE LEVEL 109 MMOL/L (98-107); CREATININE FOR GFR 0.66 MG/DL (0.55-1.30); GLOMERULAR FILTRATION RATE > 60.0 (>60); GLUCOSE, FASTING 109 MG/DL (60-100); SODIUM LEVEL 143 MMOL/L (136-145); TOTAL PROTEIN 6.9 G/DL (5.7-8.2)
[2023-08-05 04:07] LABS: CPK CREATINE PHOSPHOKINASE 155 U/L (34-145); THYROID STIMULATING HORMONE 5.483 uIU/ML (0.55-4.78)
[2023-08-05 04:14] LABS: HCG, SERUM QUALITATIVE NEGATIVE (NEGATIVE)
[2023-08-05] MEDS ORDERED: OXAZ10CA3 PO ×2 (04:44→10:28)
[2023-08-05 04:58] VITALS: BP 145/87; TEMP 98.2; O2SAT 95
[2023-08-05] MEDS: OXAZEPAM 15MG CAP PO ONE (04:58)
[2023-08-05] MEDS ORDERED: METO10TA2 PO (05:12)
== END 2023-08-05 05:05 | disposition home or self-care (01) ==
LOC: M ED 02:43
DX: F10.130 Alcohol abuse with withdrawal, uncomplicated (principal); Z79.899 Other long term (current) drug therapy
CPT/HCPCS: 80048; 80076; 80143; 82077; 82550; 84443; 84703; 85025; 93005; 93041; 94760; 96374; 99285; J2060

== ENCOUNTER 2023-08-14 19:02 | Emergency (ER) | payer OTHER ==
[~2023-08-14] VITALS: Ht 165.1 cm; Wt 98.6 kg
[~2023-08-14 19:02] MED LIST changes: +METO10TA2 PO
[2023-08-14] MEDS ORDERED: HYDR50TA70 (19:11)
[2023-08-14] MEDS ORDERED: TRAZ-257 (19:11)
[2023-08-14] MEDS: THIAMINE 100 MG TAB PO SCH (19:45)
[2023-08-14] MEDS: LORazepam 2 MG/ML 1ML VIAL IV STA (19:45)
[2023-08-14 20:10] LABS: BASO # 0.1 10^3/uL (0.0-0.2); BASO % 0.8 % (0.0-1.0); EOS % 0.5 % (0.0-3.0); HEMATOCRIT 41.4 % (36.0-47.0); HEMOGLOBIN 14.2 g/dl (12.0-15.5); LYMPH # 3.5 10^3/uL (1.5-5.0); MEAN CORPUSCULAR HEMOGLOBIN 32.3 pg (27.0-33.0); MEAN CORPUSCULAR HGB CONC 34.3 g/dl (32.0-36.5); MEAN CORPUSCULAR VOLUME 94.1 fl (80.0-96.0); MONO # 0.6 10^3/uL (0.0-0.8); MONO % 9.4 % (2.0-8.0); NEUTROPHILS # 2.4 10^3/uL (1.5-8.5); NEUTROPHILS % 36.1 % (36.0-66.0); PLATELET COUNT, AUTOMATED 228 10^3/uL (150-450); WHITE BLOOD COUNT 6.6 10^3/uL (4.0-10.0)
[2023-08-14 20:31] LABS: CPK CREATINE PHOSPHOKINASE 147 U/L (34-145)
[2023-08-14 20:32] LABS: ALBUMIN 3.6 G/DL (3.2-5.2); ALKALINE PHOSPHATASE 98 U/L (46-116); ALT/SGPT 21 U/L (7.0-40); AST/SGOT 15 U/L (<34); BILIRUBIN,DIRECT < 0.1 MG/DL (<0.4); BILIRUBIN,TOTAL 0.3 MG/DL (0.3-1.2); BLOOD UREA NITROGEN 9 MG/DL (9-23); CALCIUM LEVEL 8.3 MG/DL (8.5-10.1); CARBON DIOXIDE LEVEL 23 MMOL/L (20-31); CHLORIDE LEVEL 110 MMOL/L (98-107); CREATININE FOR GFR 0.66 MG/DL (0.55-1.30); GLOMERULAR FILTRATION RATE > 60.0 (>60); GLUCOSE, FASTING 78 MG/DL (60-100); POTASSIUM SERUM 3.8 MMOL/L (3.5-5.1); SALICYLATE LEVEL < 3.0 MG/DL (<30); SODIUM LEVEL 143 MMOL/L (136-145); TOTAL PROTEIN 6.9 G/DL (5.7-8.2)
[2023-08-14 20:34] LABS: THYROID STIMULATING HORMONE 1.297 uIU/ML (0.55-4.78)
[2023-08-14 20:49] LABS: ETHYL ALCOHOL (ETHANOL) 0.307 % (0.000-0.010)
[2023-08-15 00:19] VITALS: TEMP 97.6
[2023-08-15] MEDS: LORazepam 2 MG TAB PO PRN (00:49)
[2023-08-15] MEDS: NS 1,000 ML IV ONE (00:53)
[2023-08-15 01:06] VITALS: O2SAT 96
[2023-08-15 04:29] VITALS: BP 123/68
[2023-08-15 05:12] LABS: AMPHETAMINES LEVEL URINE NEGATIVE (NEGATIVE)
[2023-08-15 05:13] LABS: BARBITURATES URINE NEGATIVE (NEGATIVE); BENZODIAZEPINES URINE NEGATIVE (NEGATIVE); CANNABINOIDS URINE NEGATIVE (NEGATIVE); COCAINE METABOLITE URINE NEGATIVE (NEGATIVE); METHADONE URINE NEGATIVE (NEGATIVE); OPIATES URINE NEGATIVE (NEGATIVE); PHENCYCLIDINE URINE NEGATIVE (NEGATIVE)
[2023-08-15] MEDS ORDERED: MULTIVITAMINS/MINERALS THERAP 1 TAB PO SCH (09:00)
[2023-08-15] MEDS ORDERED: FOLIC ACID 1MG TAB PO SCH (09:00)
[2023-08-15] MEDS ORDERED: ONDA-282 PO (09:06)
[2023-08-15] MEDS ORDERED: OXAZ15CA4 PO (09:06)
== END 2023-08-15 05:56 | disposition home or self-care (01) ==
LOC: M ED 19:02
DX: F10.129 Alcohol abuse with intoxication, unspecified (principal); F17.200 Nicotine dependence, unspecified, uncomplicated
CPT/HCPCS: 80048; 80076; 80143; 80307; 82077; 82550; 84443; 85025; 93005; 93041; 94760; 96361; 96374; 99285; J2060

== ENCOUNTER 2023-08-15 06:28 | Emergency (ER) | payer BC, OTHER ==
[~2023-08-15] VITALS: Ht 165.1 cm; Wt 100.1 kg
[~2023-08-15 06:28] MED LIST changes: +HYDR50TA70; +TRAZ-257
[2023-08-15] MEDS: OXAZEPAM 15MG CAP PO ONE (08:18)
[2023-08-15] MEDS ORDERED: OXAZ15CA4 PO (09:06)
[2023-08-15] MEDS ORDERED: ONDA-282 PO (09:06)
[2023-08-15 09:17] VITALS: BP 129/77; TEMP 98.1; O2SAT 95
== END 2023-08-15 09:23 | disposition home or self-care (01) ==
LOC: M ED 06:28
DX: F10.130 Alcohol abuse with withdrawal, uncomplicated (principal); R25.1 Tremor, unspecified

== ENCOUNTER 2023-08-18 01:32 | Emergency (ER) | payer BC ==
[~2023-08-18] VITALS: Ht 165.1 cm; Wt 99.8 kg
[2023-08-18 01:32] VITALS: TEMP 98.5
[~2023-08-18 01:32] MED LIST changes: +OXAZ15CA4 PO
[2023-08-18] MEDS ORDERED: LORazepam 2 MG TAB PO PRN (03:45)
[2023-08-18] MEDS: NS 1,000 ML IV ONE (04:02)
[2023-08-18 04:14] LABS: BASO # 0.1 10^3/uL (0.0-0.2); BASO % 0.7 % (0.0-1.0); EOS # 0.1 10^3/uL (0.0-0.5); EOS % 1.5 % (0.0-3.0); HEMATOCRIT 41.3 % (36.0-47.0); HEMOGLOBIN 14.2 g/dl (12.0-15.5); LYMPH # 1.9 10^3/uL (1.5-5.0); LYMPH % 22.6 % (24.0-44.0); MEAN CORPUSCULAR HGB CONC 34.4 g/dl (32.0-36.5); MONO # 0.6 10^3/uL (0.0-0.8); MONO % 7.3 % (2.0-8.0); NEUTROPHILS # 5.5 10^3/uL (1.5-8.5); NEUTROPHILS % 67.7 % (36.0-66.0); PLATELET COUNT, AUTOMATED 199 10^3/uL (150-450); WHITE BLOOD COUNT 8.2 10^3/uL (4.0-10.0)
[2023-08-18 04:35] LABS: ETHYL ALCOHOL (ETHANOL) < 0.003 % (0.000-0.010); HCG, SERUM QUALITATIVE NEGATIVE (NEGATIVE)
[2023-08-18 04:36] LABS: ALBUMIN 3.4 G/DL (3.2-5.2); ALKALINE PHOSPHATASE 106 U/L (46-116); ALT/SGPT 18 U/L (7.0-40); AST/SGOT 12 U/L (<34); BILIRUBIN,DIRECT 0.2 MG/DL (<0.4); BILIRUBIN,TOTAL 0.6 MG/DL (0.3-1.2); BLOOD UREA NITROGEN 10 MG/DL (9-23); CALCIUM LEVEL 8.6 MG/DL (8.5-10.1); CARBON DIOXIDE LEVEL 25 MMOL/L (20-31); CHLORIDE LEVEL 107 MMOL/L (98-107); CREATININE FOR GFR 0.61 MG/DL (0.55-1.30); GLOMERULAR FILTRATION RATE > 60.0 (>60); GLUCOSE, FASTING 94 MG/DL (60-100); POTASSIUM SERUM 4.3 MMOL/L (3.5-5.1); SALICYLATE LEVEL < 3.0 MG/DL (<30); SODIUM LEVEL 139 MMOL/L (136-145); TOTAL PROTEIN 6.4 G/DL (5.7-8.2)
[2023-08-18 04:38] LABS: THYROID STIMULATING HORMONE 3.249 uIU/ML (0.55-4.78)
[2023-08-18 04:40] LABS: CPK CREATINE PHOSPHOKINASE 93 U/L (34-145)
[2023-08-18] MEDS: OXAZEPAM 15MG CAP PO ONE (04:41)
[2023-08-18] MEDS: METOCLOPRAMIDE INJ 10MG/2ML VIAL IV ONE (04:42)
[2023-08-18 05:45] VITALS: BP 115/68; O2SAT 96
[2023-08-18] MEDS ORDERED: MULTIVITAMINS/MINERALS THERAP 1 TAB PO SCH (09:00)
[2023-08-18] MEDS ORDERED: THIAMINE 100 MG TAB PO SCH (09:00)
[2023-08-18] MEDS ORDERED: FOLIC ACID 1MG TAB PO SCH (09:00)
== END 2023-08-18 05:48 | disposition home or self-care (01) ==
LOC: M ED 01:32
DX: F10.130 Alcohol abuse with withdrawal, uncomplicated (principal); F17.200 Nicotine dependence, unspecified, uncomplicated; Z79.899 Other long term (current) drug therapy
CPT/HCPCS: 80048; 80076; 80143; 82077; 82550; 84443; 84703; 85025; 93005; 93041; 94760; 96361; 96374; 99284; J2765

== ENCOUNTER → 2023-08-29 | Outpatient (CLI) | payer BC | LOC: M WHC 08:48 | PROVIDERS: ATTEND Physician Assistant | DX: N94.6 Dysmenorrhea, unspecified (principal) ==

== ENCOUNTER 2023-09-20 15:41 | Emergency (ER) | payer BC ==
[~2023-09-20] VITALS: Ht 165.1 cm; Wt 97.7 kg
[~2023-09-20 15:41] MED LIST changes: -HYDR50TA70; +HYDR50TA70 PO; -TRAZ-257; +TRAZ-257 PO
[2023-09-20] MEDS: BOOSTRIX VACCINE (TETANUS/DIPHTH/ACEL. PERTUSSIS) 0.5ML SYR IM.IMMUN ONE (17:10)
[2023-09-20 17:11] LABS: HEMATOCRIT 42.3 % (36.0-47.0); HEMOGLOBIN 14.6 g/dl (12.0-15.5); MEAN CORPUSCULAR HEMOGLOBIN 32.9 pg (27.0-33.0); MEAN CORPUSCULAR HGB CONC 34.5 g/dl (32.0-36.5); MEAN CORPUSCULAR VOLUME 95.3 fl (80.0-96.0); PLATELET COUNT, AUTOMATED 224 10^3/uL (150-450); RED BLOOD COUNT 4.44 10^6/uL (4.00-5.40); WHITE BLOOD COUNT 6.9 10^3/uL (4.0-10.0)
[2023-09-20 17:33] LABS: AMPHETAMINES LEVEL URINE NEGATIVE (NEGATIVE); BARBITURATES URINE NEGATIVE (NEGATIVE); BENZODIAZEPINES URINE NEGATIVE (NEGATIVE); CANNABINOIDS URINE NEGATIVE (NEGATIVE); COCAINE METABOLITE URINE NEGATIVE (NEGATIVE); METHADONE URINE NEGATIVE (NEGATIVE); OPIATES URINE NEGATIVE (NEGATIVE); PHENCYCLIDINE URINE NEGATIVE (NEGATIVE)
[2023-09-20 17:37] LABS: ALBUMIN 3.7 G/DL (3.2-5.2); ALKALINE PHOSPHATASE 113 U/L (46-116); ALT/SGPT 59 U/L (7.0-40); AST/SGOT 56 U/L (<34); BILIRUBIN,DIRECT < 0.1 MG/DL (<0.4); BILIRUBIN,TOTAL 0.2 MG/DL (0.3-1.2); BLOOD UREA NITROGEN 8 MG/DL (9-23); CALCIUM LEVEL 8.8 MG/DL (8.5-10.1); CARBON DIOXIDE LEVEL 26 MMOL/L (20-31); CHLORIDE LEVEL 107 MMOL/L (98-107); CREATININE FOR GFR 0.71 MG/DL (0.55-1.30); GLOMERULAR FILTRATION RATE > 60.0 (>60); GLUCOSE, FASTING 102 MG/DL (60-100); HCG, SERUM QUALITATIVE NEGATIVE (NEGATIVE); POTASSIUM SERUM 3.9 MMOL/L (3.5-5.1); SALICYLATE LEVEL < 3.0 MG/DL (<30); SODIUM LEVEL 140 MMOL/L (136-145); TOTAL PROTEIN 7.2 G/DL (5.7-8.2)
[2023-09-20 17:41] LABS: THYROID STIMULATING HORMONE 1.015 uIU/ML (0.55-4.78)
[2023-09-20] MEDS: THIAMINE 100 MG TAB PO SCH (18:00)
[2023-09-20 18:03] LABS: ETHYL ALCOHOL (ETHANOL) 0.314 % (0.000-0.010)
[2023-09-20] MEDS ORDERED: METO10TA3 PO (18:51)
[2023-09-20] MEDS ORDERED: OXAZ15CA4 PO (18:54)
[2023-09-20] MEDS ORDERED: HOME MED LIST COMPLETE! XX SCH (18:55)
[2023-09-20] MEDS: FOLIC ACID 1MG TAB PO SCH (20:22)
[2023-09-20] MEDS: MULTIVITAMINS/MINERALS THERAP 1 TAB PO SCH (20:22)
[2023-09-20] MEDS: traZODone 100 MG TAB PO SCH (23:14)
[2023-09-21] MEDS: LORazepam 2 MG TAB PO PRN (04:30)
[2023-09-21] MEDS: OXAZEPAM 15MG CAP PO ONE (04:48)
[2023-09-21 06:39] VITALS: BP 104/53; TEMP 97.9; O2SAT 97
== END 2023-09-21 07:06 | disposition home or self-care (01) ==
LOC: M ED 15:41
DX: F43.0 Acute stress reaction (principal); F10.129 Alcohol abuse with intoxication, unspecified; S60.912A Unspecified superficial injury of left wrist, initial encounter; X83.8XXA Intentional self-harm by other specified means, initial encounter; Y92.9 Unspecified place or not applicable; Y93.9 Activity, unspecified; Y99.9 Unspecified external cause status; F17.200 Nicotine dependence, unspecified, uncomplicated

== ENCOUNTER 2023-11-14 18:24 | Emergency (ER) | payer BC ==
[~2023-11-14] VITALS: Ht 165.1 cm; Wt 101.3 kg
[~2023-11-14 18:24] MED LIST changes: +METO10TA3 PO
[2023-11-14] MEDS: NS 1,000 ML IV ONE (20:10)
[2023-11-14 20:51] LABS: BASO % 0.4 % (0.0-1.0); EOS % 0.3 % (0.0-3.0); HEMATOCRIT 40.3 % (36.0-47.0); HEMOGLOBIN 14.1 g/dl (12.0-15.5); LYMPH # 2.1 10^3/uL (1.5-5.0); LYMPH % 20.4 % (24.0-44.0); MEAN CORPUSCULAR HEMOGLOBIN 33.1 pg (27.0-33.0); MEAN CORPUSCULAR VOLUME 94.6 fl (80.0-96.0); MONO # 0.5 10^3/uL (0.0-0.8); MONO % 5.2 % (2.0-8.0); NEUTROPHILS # 7.5 10^3/uL (1.5-8.5); NEUTROPHILS % 73.5 % (36.0-66.0); PLATELET COUNT, AUTOMATED 195 10^3/uL (150-450); RED BLOOD COUNT 4.26 10^6/uL (4.00-5.40); WHITE BLOOD COUNT 10.2 10^3/uL (4.0-10.0)
[2023-11-14] MEDS ORDERED: LORazepam 2 MG TAB PO PRN (20:55)
[2023-11-14 21:13] LABS: ETHYL ALCOHOL (ETHANOL) < 0.003 % (0.000-0.010); LIPASE 31 U/L (12-53)
[2023-11-14 21:15] LABS: ALBUMIN 3.3 G/DL (3.2-5.2); ALKALINE PHOSPHATASE 130 U/L (46-116); ALT/SGPT 43 U/L (7.0-40); AST/SGOT 48 U/L (<34); BILIRUBIN,DIRECT 0.3 MG/DL (<0.4); BILIRUBIN,TOTAL 0.8 MG/DL (0.3-1.2); BLOOD UREA NITROGEN 11 MG/DL (9-23); CARBON DIOXIDE LEVEL 23 MMOL/L (20-31); CHLORIDE LEVEL 104 MMOL/L (98-107); CREATININE FOR GFR 0.69 MG/DL (0.55-1.30); GLOMERULAR FILTRATION RATE > 60.0 (>60); GLUCOSE, FASTING 83 MG/DL (60-100); POTASSIUM SERUM 3.6 MMOL/L (3.5-5.1); SODIUM LEVEL 136 MMOL/L (136-145); TOTAL PROTEIN 6.8 G/DL (5.7-8.2)
[2023-11-14] MEDS ORDERED: HOME MED LIST COMPLETE! XX SCH (22:05)
[2023-11-14] MEDS ORDERED: ISOVUE-370 76% 100ML VIAL As Ordered ONE (23:09)
[2023-11-15] MEDS: OXAZEPAM 15MG CAP PO ONE (00:08)
[2023-11-15] MEDS: THIAMINE 100 MG TAB PO SCH (00:09)
[2023-11-15] MEDS ORDERED: OXAZ30CA2 PO (00:37)
[2023-11-15 01:03] VITALS: BP 125/88; TEMP 97.4; O2SAT 99
[2023-11-15] MEDS ORDERED: MULTIVITAMINS/MINERALS THERAP 1 TAB PO SCH (09:00)
[2023-11-15] MEDS ORDERED: FOLIC ACID 1MG TAB PO SCH (09:00)
== END 2023-11-15 01:05 | disposition home or self-care (01) ==
LOC: M ED 18:24
DX: F10.130 Alcohol abuse with withdrawal, uncomplicated (principal); K70.10 Alcoholic hepatitis without ascites; Z79.899 Other long term (current) drug therapy
CPT/HCPCS: 74177; 80048; 80076; 82077; 83690; 85025; 96360; 96361; 99283; Q9967

== ENCOUNTER 2023-11-29 18:31 | Emergency (ER) | payer BC ==
[~2023-11-29] VITALS: Ht 165.1 cm; Wt 102.9 kg
[2023-11-29 18:33] VITALS: TEMP 97.1
[2023-11-29] MEDS: ONDANSETRON 4MG 2ML VIAL IV ONE (22:24)
[2023-11-29] MEDS: NS 1,000 ML IV ONE (22:24)
[2023-11-29] MEDS: LORazepam 2 MG/ML 1ML VIAL IV STA (22:24)
[2023-11-29] MEDS: MULTIVITAMIN -ADULT INJECTION 10 ML, THIAMINE INJection 100 MG, FOLIC ACID 1 MG in NS 1... IV ONE (22:25)
[2023-11-29 22:29] LABS: BASO # 0.1 10^3/uL (0.0-0.2); BASO % 0.6 % (0.0-1.0); EOS % 0.5 % (0.0-3.0); HEMATOCRIT 39.3 % (36.0-47.0); HEMOGLOBIN 13.9 g/dl (12.0-15.5); LYMPH # 2.5 10^3/uL (1.5-5.0); LYMPH % 28.2 % (24.0-44.0); MEAN CORPUSCULAR HEMOGLOBIN 33.5 pg (27.0-33.0); MEAN CORPUSCULAR HGB CONC 35.4 g/dl (32.0-36.5); MEAN CORPUSCULAR VOLUME 94.7 fl (80.0-96.0); MONO # 0.7 10^3/uL (0.0-0.8); MONO % 7.4 % (2.0-8.0); NEUTROPHILS # 5.5 10^3/uL (1.5-8.5); NEUTROPHILS % 63.1 % (36.0-66.0); PLATELET COUNT, AUTOMATED 219 10^3/uL (150-450); RED BLOOD COUNT 4.15 10^6/uL (4.00-5.40); WHITE BLOOD COUNT 8.8 10^3/uL (4.0-10.0)
[2023-11-30 00:27] LABS: ETHYL ALCOHOL (ETHANOL) < 0.003 % (0.000-0.010)
[2023-11-30 00:48] LABS: ALBUMIN 2.9 G/DL (3.2-5.2); ALKALINE PHOSPHATASE 78 U/L (46-116); ALT/SGPT 21 U/L (7.0-40); AST/SGOT 21 U/L (<34); BILIRUBIN,TOTAL 0.9 MG/DL (0.3-1.2); BLOOD UREA NITROGEN 10 MG/DL (9-23); CALCIUM LEVEL 7.9 MG/DL (8.5-10.1); CARBON DIOXIDE LEVEL 22 MMOL/L (20-31); CHLORIDE LEVEL 108 MMOL/L (98-107); CREATININE FOR GFR 0.59 MG/DL (0.55-1.30); GLOMERULAR FILTRATION RATE > 60.0 (>60); GLUCOSE, FASTING 91 MG/DL (60-100); POTASSIUM SERUM 3.4 MMOL/L (3.5-5.1); SODIUM LEVEL 137 MMOL/L (136-145)
[2023-11-30] MEDS ORDERED: OXAZ10CA3 PO (01:12)
[2023-11-30 02:01] VITALS: BP 137/82; O2SAT 98
== END 2023-11-30 02:37 | disposition home or self-care (01) ==
LOC: M ED 18:31
DX: F10.130 Alcohol abuse with withdrawal, uncomplicated (principal); Z79.899 Other long term (current) drug therapy
CPT/HCPCS: 80053; 82077; 85025; 96365; 96366; 96375; 99284; J2060; J2405; J3411

== ENCOUNTER 2023-12-06 16:52 | Emergency (ER) | payer BC ==
[~2023-12-06] VITALS: Ht 165.1 cm; Wt 102.2 kg
[2023-12-06 16:55] VITALS: TEMP 97.6; O2SAT 96
[2023-12-06 17:02] VITALS: BP 139/87
== END 2023-12-06 18:12 | disposition left against medical advice (07) ==
LOC: M ED 16:52
DX: Z53.21 Procedure and treatment not carried out due to patient leaving prior to being seen by health care provider (principal)

== ENCOUNTER 2023-12-13 04:41 | Emergency (ER) | payer BC ==
[~2023-12-13] VITALS: Ht 165.1 cm; Wt 98.8 kg
[2023-12-13] MEDS: METOCLOPRAMIDE INJ 10MG/2ML VIAL IV ONE (05:33)
[2023-12-13 05:47] LABS: BASO # 0.1 10^3/uL (0.0-0.2); BASO % 0.7 % (0.0-1.0); EOS % 0.3 % (0.0-3.0); HEMATOCRIT 45.5 % (36.0-47.0); HEMOGLOBIN 15.8 g/dl (12.0-15.5); LYMPH # 2.6 10^3/uL (1.5-5.0); LYMPH % 26.5 % (24.0-44.0); MEAN CORPUSCULAR HEMOGLOBIN 32.6 pg (27.0-33.0); MEAN CORPUSCULAR HGB CONC 34.7 g/dl (32.0-36.5); MONO # 0.6 10^3/uL (0.0-0.8); MONO % 6.2 % (2.0-8.0); NEUTROPHILS # 6.5 10^3/uL (1.5-8.5); NEUTROPHILS % 66.1 % (36.0-66.0); PLATELET COUNT, AUTOMATED 285 10^3/uL (150-450); RED BLOOD COUNT 4.84 10^6/uL (4.00-5.40); WHITE BLOOD COUNT 9.9 10^3/uL (4.0-10.0)
[2023-12-13 06:13] LABS: ETHYL ALCOHOL (ETHANOL) 0.227 % (0.000-0.010)
[2023-12-13 06:17] LABS: ALBUMIN 3.8 G/DL (3.2-5.2); ALKALINE PHOSPHATASE 98 U/L (35-104); ALT/SGPT 39 U/L (7.0-40); AST/SGOT 56 U/L (<34); BILIRUBIN,DIRECT 0.2 MG/DL (<0.4); BILIRUBIN,TOTAL 0.5 MG/DL (0.3-1.2); BLOOD UREA NITROGEN 6 MG/DL (9-23); CALCIUM LEVEL 9.4 MG/DL (8.5-10.1); CARBON DIOXIDE LEVEL 21 MMOL/L (20-31); CHLORIDE LEVEL 105 MMOL/L (98-107); CPK CREATINE PHOSPHOKINASE 292 U/L (34-145); CREATININE FOR GFR 0.66 MG/DL (0.55-1.30); GLOMERULAR FILTRATION RATE > 60.0 (>60); GLUCOSE, FASTING 91 MG/DL (60-100); MB/CK RELATIVE INDEX 0.68 (< OR =4); POTASSIUM SERUM 3.8 MMOL/L (3.5-5.1); SODIUM LEVEL 141 MMOL/L (136-145); TOTAL PROTEIN 7.9 G/DL (5.7-8.2)
[2023-12-13 06:18] LABS: HCG, SERUM QUALITATIVE NEGATIVE (NEGATIVE)
[2023-12-13] MEDS: NS 1,000 ML IV ONE (06:56)
[2023-12-13 07:24] LABS: CK-MB VALUE MASS 1.1 NG/ML (<3.6)
[2023-12-13 07:25] LABS: MB/CK RELATIVE INDEX 0.42 (< OR =4)
[2023-12-13] MEDS ORDERED: LORazepam 2 MG TAB PO PRN (08:00)
[2023-12-13 08:13] LABS: MAGNESIUM LEVEL 1.9 MG/DL (1.8-2.4)
[2023-12-13] MEDS: ONDANSETRON 4MG 2ML VIAL IV ONE (08:57)
[2023-12-13] MEDS: LORazepam 2 MG/ML 1ML VIAL IV STA (08:58)
[2023-12-13] MEDS: FOLIC ACID 1MG TAB PO SCH (09:35)
[2023-12-13] MEDS: THIAMINE 100 MG TAB PO SCH (09:35)
[2023-12-13] MEDS: MULTIVITAMINS/MINERALS THERAP 1 TAB PO SCH (09:35)
[2023-12-13] MEDS ORDERED: OXAZ10CA3 PO (10:02)
[2023-12-13] MEDS ORDERED: HOME MED LIST COMPLETE! XX SCH (10:05)
[2023-12-13 11:51] VITALS: BP 127/71; TEMP 97.6; O2SAT 98
[2023-12-14] MEDS ORDERED: MULTCHW14 PO (10:09)
[2023-12-14] MEDS ORDERED: THIA100TA PO (10:09)
[2023-12-14] MEDS ORDERED: FOLI400T13 PO (10:09)
== END 2023-12-13 12:06 | disposition home or self-care (01) ==
LOC: M ED 04:41
DX: F10.10 Alcohol abuse, uncomplicated (principal); I48.91 Unspecified atrial fibrillation; Z79.899 Other long term (current) drug therapy
CPT/HCPCS: 71045; 80048; 80076; 82077; 82550; 82553; 83735; 84484; 84703; 85025; 93005; 93041; 94760; 96361; 96374; 96375; 99285; J2060; J2405; J2765

== ENCOUNTER 2023-12-13 14:29 | Inpatient (IN) | payer BC ==
[~2023-12-13] VITALS: Ht 165.1 cm; Wt 100.0 kg
[2023-12-13] MEDS ORDERED: HOME MED LIST COMPLETE! XX SCH (15:05)
[2023-12-13] MEDS ORDERED: LORazepam 2 MG TAB PO PRN ×2 (15:40→16:05)
[2023-12-13] MEDS: THIAMINE 100 MG TAB PO SCH (16:24)
[2023-12-13] MEDS: FOLIC ACID 1MG TAB PO SCH (16:24)
[2023-12-13] MEDS: MULTIVITAMINS/MINERALS THERAP 1 TAB PO SCH (16:24)
[2023-12-13] MEDS: LORazepam 2 MG/ML 1ML VIAL IV STA (16:24)
[2023-12-13] MEDS: ONDANSETRON 4MG 2ML VIAL IV STA (16:31)
[2023-12-13 17:09] LABS: AMPHETAMINES LEVEL URINE NEGATIVE (NEGATIVE); BARBITURATES URINE NEGATIVE (NEGATIVE); BENZODIAZEPINES URINE NEGATIVE (NEGATIVE); CANNABINOIDS URINE NEGATIVE (NEGATIVE); COCAINE METABOLITE URINE NEGATIVE (NEGATIVE); METHADONE URINE NEGATIVE (NEGATIVE); OPIATES URINE NEGATIVE (NEGATIVE); PHENCYCLIDINE URINE NEGATIVE (NEGATIVE)
[2023-12-13] MEDS ORDERED: ACETAMINOPHEN 325 MG TAB PO PRN (17:10)
[2023-12-13] MEDS: MULTIVITAMIN -ADULT INJECTION 10 ML, THIAMINE INJection 100 MG, FOLIC ACID 1 MG in NS 1... IV ONE (20:41)
[2023-12-13] MEDS: OXAZEPAM 15MG CAP PO SCH (22:18)
[2023-12-14 05:59] LABS: BASO % 0.6 % (0.0-1.0); EOS # 0.1 10^3/uL (0.0-0.5); EOS % 1.7 % (0.0-3.0); HEMATOCRIT 40.3 % (36.0-47.0); LYMPH # 1.8 10^3/uL (1.5-5.0); LYMPH % 32.8 % (24.0-44.0); MEAN CORPUSCULAR HEMOGLOBIN 32.7 pg (27.0-33.0); MEAN CORPUSCULAR HGB CONC 34.2 g/dl (32.0-36.5); MEAN CORPUSCULAR VOLUME 95.5 fl (80.0-96.0); MONO # 0.6 10^3/uL (0.0-0.8); NEUTROPHILS # 2.9 10^3/uL (1.5-8.5); NEUTROPHILS % 53.7 % (36.0-66.0); PLATELET COUNT, AUTOMATED 197 10^3/uL (150-450); RED BLOOD COUNT 4.22 10^6/uL (4.00-5.40); WHITE BLOOD COUNT 5.4 10^3/uL (4.0-10.0)
[2023-12-14 06:13] LABS: BLOOD UREA NITROGEN 7 MG/DL (9-23); CALCIUM LEVEL 9.1 MG/DL (8.5-10.1); CARBON DIOXIDE LEVEL 26 MMOL/L (20-31); CHLORIDE LEVEL 104 MMOL/L (98-107); CREATININE FOR GFR 0.66 MG/DL (0.55-1.30); GLOMERULAR FILTRATION RATE > 60.0 (>60); GLUCOSE, FASTING 102 MG/DL (60-100); MAGNESIUM LEVEL 1.8 MG/DL (1.8-2.4); POTASSIUM SERUM 3.2 MMOL/L (3.5-5.1); SODIUM LEVEL 137 MMOL/L (136-145)
[2023-12-14 06:19] LABS: HEMOGLOBIN 13.8 g/dl (12.0-15.5)
[2023-12-14] MEDS: POTASSIUM CHLORIDE 10MEQ SR TABLET PO ONE (07:47)
[2023-12-14] MEDS: ENOXAPARIN 40MG/0.4ML SYRINGE (J1650 PER 10MG) SC SCH (07:47)
[2023-12-14] MEDS ORDERED: FOLI400T13 PO (10:09)
[2023-12-14] MEDS ORDERED: THIA100TA PO (10:09)
[2023-12-14] MEDS ORDERED: MULTCHW14 PO (10:09)
[2023-12-14 12:30] VITALS: O2SAT 97
[2023-12-14 12:31] VITALS: BP 132/81; TEMP 97.2
[2023-12-14] MEDS ORDERED: OXAZEPAM 10MG CAP PO SCH (14:00)
== END 2023-12-14 13:10 | disposition home or self-care (01) | DRG 775 ==
LOC: M ED 14:29 → M ED INP 16:41
PROVIDERS: ADMIT Internal Medicine; ATTEND Internal Medicine
DX: F10.231 Alcohol dependence with withdrawal delirium (principal); F41.9 Anxiety disorder, unspecified; G47.00 Insomnia, unspecified; Z90.49 Acquired absence of other specified parts of digestive tract; Z79.899 Other long term (current) drug therapy

== ENCOUNTER → 2023-12-16 | Outpatient (REF) | payer BC, OTHER ==
[~2023-12-16] MED LIST changes: +FOLI400T13 PO; +MULTCHW14 PO; +THIA100TA PO
== END ==
LOC: M LAB REF 20:45
PROVIDERS: ATTEND Physician Assistant
DX: R05.9 Cough, unspecified (principal)

== ENCOUNTER → 2023-12-22 | Outpatient (REF) | payer BC ==
[2023-12-26 16:42] LABS: HPV APTIMA Not Detected (Not Detected)
== END ==
LOC: M PLALAB 15:52
PROVIDERS: ATTEND Obstetrics & Gynecology
DX: Z12.4 Encounter for screening for malignant neoplasm of cervix (principal); Z77.9 Other contact with and (suspected) exposures hazardous to health; N94.89 Other specified conditions associated with female genital organs and menstrual cycle
CPT/HCPCS: 87070; 87624; G0123

== ENCOUNTER 2023-12-28 18:57 | Emergency (ER) | payer BC ==
[~2023-12-28] VITALS: Ht 165.1 cm; Wt 99.5 kg
[2023-12-28 20:25] LABS: HEMATOCRIT 43.9 % (36.0-47.0); MEAN CORPUSCULAR HEMOGLOBIN 32.3 pg (27.0-33.0); MEAN CORPUSCULAR HGB CONC 34.2 g/dl (32.0-36.5); MEAN CORPUSCULAR VOLUME 94.4 fl (80.0-96.0); PLATELET COUNT, AUTOMATED 358 10^3/uL (150-450); RED BLOOD COUNT 4.65 10^6/uL (4.00-5.40); WHITE BLOOD COUNT 8.2 10^3/uL (4.0-10.0)
[2023-12-28 20:43] LABS: HCG, SERUM QUALITATIVE NEGATIVE (NEGATIVE)
[2023-12-28 20:46] LABS: ALBUMIN 3.5 G/DL (3.2-5.2); ALKALINE PHOSPHATASE 103 U/L (35-104); ALT/SGPT 51 U/L (7.0-40); AST/SGOT 39 U/L (<34); BILIRUBIN,DIRECT < 0.1 MG/DL (<0.4); BILIRUBIN,TOTAL 0.2 MG/DL (0.3-1.2); BLOOD UREA NITROGEN 6 MG/DL (9-23); CALCIUM LEVEL 8.9 MG/DL (8.5-10.1); CARBON DIOXIDE LEVEL 22 MMOL/L (20-31); CHLORIDE LEVEL 111 MMOL/L (98-107); CREATININE FOR GFR 0.59 MG/DL (0.55-1.30); GLOMERULAR FILTRATION RATE > 60.0 (>60); GLUCOSE, FASTING 105 MG/DL (60-100); POTASSIUM SERUM 3.9 MMOL/L (3.5-5.1); SALICYLATE LEVEL < 3.0 MG/DL (<30); SODIUM LEVEL 147 MMOL/L (136-145); TOTAL PROTEIN 7.2 G/DL (5.7-8.2)
[2023-12-28 20:47] LABS: THYROID STIMULATING HORMONE 1.647 uIU/ML (0.55-4.78)
[2023-12-28] MEDS ORDERED: NALT50TA4 PO (20:48)
[2023-12-28] MEDS ORDERED: BUSP5TA PO (20:48)
[2023-12-28] MEDS ORDERED: HOME MED LIST COMPLETE! XX SCH (20:50)
[2023-12-28 21:54] LABS: AMPHETAMINES LEVEL URINE NEGATIVE (NEGATIVE)
[2023-12-28 21:55] LABS: BARBITURATES URINE NEGATIVE (NEGATIVE); BENZODIAZEPINES URINE NEGATIVE (NEGATIVE); CANNABINOIDS URINE NEGATIVE (NEGATIVE); COCAINE METABOLITE URINE NEGATIVE (NEGATIVE); METHADONE URINE NEGATIVE (NEGATIVE); OPIATES URINE NEGATIVE (NEGATIVE); PHENCYCLIDINE URINE NEGATIVE (NEGATIVE)
[2023-12-28] MEDS: ONDANSETRON 4MG ORAL DISINTEGRATING TAB PO ONE (23:43)
[2023-12-28] MEDS: OXAZEPAM 15MG CAP PO ONE (23:44)
[2023-12-29] MEDS: METOCLOPRAMIDE 10MG TAB PO ONE (08:00)
[2023-12-29] MEDS: MULTIVITAMINS/MINERALS THERAP 1 TAB PO SCH (10:32)
[2023-12-29] MEDS: THIAMINE 100 MG TAB PO SCH (10:32)
[2023-12-29] MEDS: LORazepam 2 MG TAB PO PRN (10:33)
[2023-12-29] MEDS: FOLIC ACID 1MG TAB PO SCH (10:33)
[2023-12-29] MEDS: ONDANSETRON 4MG ORAL DISINTEGRATING TAB PO ONE (10:33)
[2023-12-29 18:52] VITALS: BP 135/78; TEMP 97.5; O2SAT 98
[2023-12-29] MEDS ORDERED: THIAMINE 100 MG TAB PO SCH (21:00)
[2023-12-30] MEDS ORDERED: MULTIVITAMINS/MINERALS THERAP 1 TAB PO SCH (09:00)
[2023-12-30] MEDS ORDERED: FOLIC ACID 1MG TAB PO SCH (09:00)
== END 2023-12-29 19:00 | disposition home or self-care (01) ==
LOC: M ED 18:57
DX: F10.130 Alcohol abuse with withdrawal, uncomplicated (principal); G47.00 Insomnia, unspecified; F41.9 Anxiety disorder, unspecified; Z79.899 Other long term (current) drug therapy

== ENCOUNTER 2024-02-09 00:02 | Emergency (ER) | payer BC ==
[~2024-02-09] VITALS: Ht 165.1 cm; Wt 94.2 kg
[~2024-02-09 00:02] MED LIST changes: +BUSP5TA PO; +NALT50TA4 PO
[2024-02-09] MEDS: NS 500 ML IV ONE (02:25)
[2024-02-09 02:46] LABS: BASO # 0.1 10^3/uL (0.0-0.2); BASO % 1.1 % (0.0-1.0); EOS # 0.1 10^3/uL (0.0-0.5); EOS % 1.7 % (0.0-3.0); HEMATOCRIT 43.1 % (36.0-47.0); HEMOGLOBIN 14.5 g/dl (12.0-15.5); LYMPH # 2.9 10^3/uL (1.5-5.0); MEAN CORPUSCULAR HEMOGLOBIN 32.2 pg (27.0-33.0); MEAN CORPUSCULAR HGB CONC 33.6 g/dl (32.0-36.5); MEAN CORPUSCULAR VOLUME 95.6 fl (80.0-96.0); MONO # 0.5 10^3/uL (0.0-0.8); MONO % 10.1 % (2.0-8.0); NEUTROPHILS # 1.2 10^3/uL (1.5-8.5); NEUTROPHILS % 25.9 % (36.0-66.0); PLATELET COUNT, AUTOMATED 267 10^3/uL (150-450); RED BLOOD COUNT 4.51 10^6/uL (4.00-5.40); WHITE BLOOD COUNT 4.7 10^3/uL (4.0-10.0)
[2024-02-09 03:05] LABS: BLOOD UREA NITROGEN 6 MG/DL (9-23); CALCIUM LEVEL 8.9 MG/DL (8.5-10.1); CARBON DIOXIDE LEVEL 28 MMOL/L (20-31); CHLORIDE LEVEL 106 MMOL/L (98-107); GLOMERULAR FILTRATION RATE > 60.0 (>60); GLUCOSE, FASTING 92 MG/DL (60-100); POTASSIUM SERUM 3.9 MMOL/L (3.5-5.1); SODIUM LEVEL 147 MMOL/L (136-145)
[2024-02-09 03:11] LABS: HCG, SERUM QUALITATIVE NEGATIVE (NEGATIVE)
[2024-02-09 03:33] LABS: ETHYL ALCOHOL (ETHANOL) 0.392 % (0.000-0.010)
[2024-02-09] MEDS ORDERED: ISOVUE-370 76% 100ML VIAL As Ordered ONE (03:53)
[2024-02-09] MEDS: METOCLOPRAMIDE INJ 10MG/2ML VIAL IV ONE (04:22)
[2024-02-09] MEDS: KETOROLAC 30 MG/ML 1ML VIAL IV ONE (04:23)
[2024-02-09] MEDS: ACETAMINOPHEN *IV* 1,000 MG in IV 1 EA IV ONE (04:29)
[2024-02-09 05:08] VITALS: BP 94/53; TEMP 96.9; O2SAT 95
== END 2024-02-09 05:10 | disposition home or self-care (01) ==
LOC: M ED 00:02
DX: F07.81 Postconcussional syndrome (principal); F39 Unspecified mood [affective] disorder; Z86.19 Personal history of other infectious and parasitic diseases; F17.200 Nicotine dependence, unspecified, uncomplicated; Z79.899 Other long term (current) drug therapy
CPT/HCPCS: 70450; 70486; 70496; 70498; 72125; 80048; 82077; 83735; 84703; 85025; 96361; 96365; 96375; 99284; J0131; J1100; J1885; J2765; Q9967

== ENCOUNTER 2024-02-15 23:43 | Emergency (ER) | payer BC ==
[2024-02-16 00:32] LABS: HEMATOCRIT 45.3 % (36.0-47.0); HEMOGLOBIN 15.4 g/dl (12.0-15.5); MEAN CORPUSCULAR HEMOGLOBIN 32.5 pg (27.0-33.0); MEAN CORPUSCULAR VOLUME 95.6 fl (80.0-96.0); PLATELET COUNT, AUTOMATED 268 10^3/uL (150-450); RED BLOOD COUNT 4.74 10^6/uL (4.00-5.40); WHITE BLOOD COUNT 11.4 10^3/uL (4.0-10.0)
[2024-02-16] MEDS: HALOPERIDOL LACTATE 5MG/ML VIAL IM ONE (00:36)
[2024-02-16] MEDS: diphenhydrAMINE 50MG/ML VIAL IM ONE (00:36)
[2024-02-16] MEDS: LORazepam 2 MG/ML 1ML VIAL IM ONE (00:36)
[2024-02-16 00:47] LABS: SALICYLATE LEVEL < 3.0 MG/DL (<30)
[2024-02-16 01:06] LABS: ALBUMIN 3.9 G/DL (3.2-5.2); ALKALINE PHOSPHATASE 94 U/L (35-104); ALT/SGPT 45 U/L (7.0-40); AST/SGOT 39 U/L (<34); BILIRUBIN,DIRECT < 0.1 MG/DL (<0.4); BILIRUBIN,TOTAL 0.2 MG/DL (0.3-1.2); BLOOD UREA NITROGEN < 5 MG/DL (9-23); CALCIUM LEVEL 8.9 MG/DL (8.5-10.1); CARBON DIOXIDE LEVEL 21 MMOL/L (20-31); CHLORIDE LEVEL 107 MMOL/L (98-107); CREATININE FOR GFR 0.56 MG/DL (0.55-1.30); ETHYL ALCOHOL (ETHANOL) 0.505 % (0.000-0.010); GLOMERULAR FILTRATION RATE > 60.0 (>60); GLUCOSE, FASTING 105 MG/DL (60-100); POTASSIUM SERUM 3.8 MMOL/L (3.5-5.1); SODIUM LEVEL 143 MMOL/L (136-145); TOTAL PROTEIN 7.7 G/DL (5.7-8.2)
[2024-02-16] MEDS ORDERED: LORazepam 2 MG TAB PO PRN (01:30)
[2024-02-16 01:40] LABS: AMPHETAMINES LEVEL URINE NEGATIVE (NEGATIVE); BARBITURATES URINE NEGATIVE (NEGATIVE); BENZODIAZEPINES URINE NEGATIVE (NEGATIVE); CANNABINOIDS URINE NEGATIVE (NEGATIVE); COCAINE METABOLITE URINE NEGATIVE (NEGATIVE); METHADONE URINE NEGATIVE (NEGATIVE); OPIATES URINE NEGATIVE (NEGATIVE); PHENCYCLIDINE URINE NEGATIVE (NEGATIVE)
[2024-02-16] MEDS: NS (Normal Saline) 0.9% 1,000 ML IV ONE (07:48)
[2024-02-16] MEDS: FOLIC ACID 1MG TAB PO SCH (08:54)
[2024-02-16] MEDS: MULTIVITAMINS/MINERALS THERAP 1 TAB PO SCH (08:54)
[2024-02-16] MEDS: THIAMINE 100 MG TAB PO SCH (08:55)
[2024-02-16 10:29] VITALS: BP 133/89; TEMP 98.2; O2SAT 100
== END 2024-02-16 10:34 | disposition home or self-care (01) ==
LOC: M ED 23:43 → EDBD 23:43 → M ED 02-16 10:34
DX: F10.129 Alcohol abuse with intoxication, unspecified (principal); F43.0 Acute stress reaction; Z79.899 Other long term (current) drug therapy
CPT/HCPCS: 80048; 80076; 80143; 80307; 82077; 84443; 85027; 93041; 96360; 96372; 99285; J1200; J1630; J2060

== ENCOUNTER 2024-06-07 12:11 | Emergency (ER) | payer BC, OTHER ==
[~2024-06-07] VITALS: Ht 165.1 cm; Wt 88.7 kg
[2024-06-07 14:06] LABS: BASO # 0.1 10^3/uL (0.0-0.2); BASO % 1.2 % (0.0-1.0); EOS % 0.4 % (0.0-3.0); HEMATOCRIT 47.2 % (36.0-47.0); LYMPH # 1.8 10^3/uL (1.5-5.0); LYMPH % 37.8 % (24.0-44.0); MEAN CORPUSCULAR HEMOGLOBIN 32.9 pg (27.0-33.0); MEAN CORPUSCULAR HGB CONC 33.9 g/dl (32.0-36.5); MEAN CORPUSCULAR VOLUME 97.1 fl (80.0-96.0); MONO # 0.4 10^3/uL (0.0-0.8); MONO % 7.6 % (2.0-8.0); NEUTROPHILS # 2.5 10^3/uL (1.5-8.5); NEUTROPHILS % 52.4 % (36.0-66.0); PLATELET COUNT, AUTOMATED 281 10^3/uL (150-450); RED BLOOD COUNT 4.86 10^6/uL (4.00-5.40); WHITE BLOOD COUNT 4.8 10^3/uL (4.0-10.0)
[2024-06-07 14:12] LABS: ALBUMIN 4.5 G/DL (3.2-5.2); ALKALINE PHOSPHATASE 104 U/L (35-104); ALT/SGPT 104 U/L (7.0-40); AST/SGOT 107 U/L (<34); BILIRUBIN,DIRECT 0.1 MG/DL (<0.4); BILIRUBIN,TOTAL 0.4 MG/DL (0.3-1.2); BLOOD UREA NITROGEN 8 MG/DL (9-23); CALCIUM LEVEL 9.4 MG/DL (8.5-10.1); CARBON DIOXIDE LEVEL 25 MMOL/L (20-31); CHLORIDE LEVEL 102 MMOL/L (98-107); CREATININE FOR GFR 0.59 MG/DL (0.55-1.30); GLOMERULAR FILTRATION RATE > 90.0 (>60); GLUCOSE, FASTING 102 MG/DL (60-100); POTASSIUM SERUM 4.1 MMOL/L (3.5-5.1); SALICYLATE LEVEL < 3.0 MG/DL (<30); SODIUM LEVEL 143 MMOL/L (136-145); TOTAL PROTEIN 8.4 G/DL (5.7-8.2)
[2024-06-07 14:14] LABS: THYROID STIMULATING HORMONE 1.545 uIU/ML (0.55-4.78)
[2024-06-07 14:21] LABS: CPK CREATINE PHOSPHOKINASE 226 U/L (34-145); ETHYL ALCOHOL (ETHANOL) 0.408 % (0.000-0.010)
[2024-06-07] MEDS: NS (Normal Saline) 0.9% 1,000 ML IV ONE (14:25)
[2024-06-07] MEDS: ONDANSETRON 4MG 2ML VIAL IV ONE (14:25)
[2024-06-07] MEDS: MULTIVITAMINS/MINERALS THERAP 1 TAB PO SCH (14:35)
[2024-06-07] MEDS: FOLIC ACID 1MG TAB PO SCH (14:35)
[2024-06-07] MEDS: LORazepam 2 MG TAB PO PRN (14:35)
[2024-06-07] MEDS: THIAMINE 100 MG TAB PO SCH (14:35)
[2024-06-07 14:37] LABS: AMPHETAMINES LEVEL URINE NEGATIVE (NEGATIVE); BARBITURATES URINE NEGATIVE (NEGATIVE); BENZODIAZEPINES URINE NEGATIVE (NEGATIVE); CANNABINOIDS URINE NEGATIVE (NEGATIVE); COCAINE METABOLITE URINE NEGATIVE (NEGATIVE); METHADONE URINE NEGATIVE (NEGATIVE); OPIATES URINE NEGATIVE (NEGATIVE); PHENCYCLIDINE URINE NEGATIVE (NEGATIVE)
[2024-06-07 15:59] LABS: HEPATITIS B SURFACE ANTIGEN NEGATIVE (NEGATIVE)
[2024-06-07 16:19] LABS: HEPATITIS B CORE ANTIBODY IGM NEGATIVE (NEGATIVE)
[2024-06-07 16:20] LABS: HEPATITIS C VIRUS ABY INDEX 0.02 INDEX (<0.8)
[2024-06-07] MEDS: MULTIVITAMIN -ADULT INJECTION 10 ML, THIAMINE INJection 100 MG, FOLIC ACID 1 MG in NS (... IV ONE (18:24)
[2024-06-07 21:19] VITALS: BP 137/102; TEMP 96; O2SAT 94
== END 2024-06-07 21:25 | disposition home or self-care (01) ==
LOC: M ED 12:11 → EEVIPCON 12:11 → M ED 21:25
DX: F10.129 Alcohol abuse with intoxication, unspecified (principal); K76.0 Fatty (change of) liver, not elsewhere classified; Z79.899 Other long term (current) drug therapy
CPT/HCPCS: 71045; 76705; 80047; 80048; 80074; 80076; 80143; 80307; 82077; 82550; 84443; 85025; 93005; 93041; 94760; 96361; 96365; 96366; 96375; 99285; J1808; J2405; J3411

== ENCOUNTER 2024-06-08 00:09 | Emergency (ER) | payer BC, OTHER | END 2024-06-08 02:02 | disposition left against medical advice (07) | LOC: M ED 00:09 | DX: Z53.21 Procedure and treatment not carried out due to patient leaving prior to being seen by health care provider (principal) ==

== ENCOUNTER 2024-09-02 10:41 | Inpatient (IN) | payer BC ==
[~2024-09-02] VITALS: Ht 165.1 cm; Wt 89.5 kg
[~2024-09-02 10:41] MED LIST changes: +PROZ10CA11 PO; -PROZ10CA7 PO
[2024-09-02] MEDS: THIAMINE 100 MG TAB PO SCH (11:32)
[2024-09-02] MEDS: FOLIC ACID 1 MG TAB PO SCH (11:33)
[2024-09-02] MEDS: MULTIVITAMINS/MINERALS THERAP 1 TAB PO SCH (11:33)
[2024-09-02 11:48] LABS: PLATELET COUNT, AUTOMATED 112 10^3/uL (150-450)
[2024-09-02 12:08] LABS: ETHYL ALCOHOL (ETHANOL) 0.073 % (0.000-0.010)
[2024-09-02 12:10] LABS: ALT/SGPT 127 U/L (7.0-40); AST/SGOT 230 U/L (<34); CALCIUM LEVEL 8.6 MG/DL (8.5-10.1); CARBON DIOXIDE LEVEL 24 MMOL/L (20-31); CHLORIDE LEVEL 103 MMOL/L (98-107); CREATININE FOR GFR 0.64 MG/DL (0.55-1.30); GLOMERULAR FILTRATION RATE > 90.0 (>60); POTASSIUM SERUM 3.4 MMOL/L (3.5-5.1); SODIUM LEVEL 144 MMOL/L (136-145)
[2024-09-02 12:13] LABS: HCG, SERUM QUALITATIVE NEGATIVE (NEGATIVE)
[2024-09-02] MEDS ORDERED: ONDA-282 PO (17:15)
[2024-09-02] MEDS ORDERED: HOME MED LIST COMPLETE! XX SCH (17:20)
[2024-09-02] MEDS: PANTOPRAZOLE 40MG VIAL IV ONE (17:55)
[2024-09-02 18:05] VITALS: BP 117/80; TEMP 98.2; O2SAT 97
[2024-09-02] MEDS ORDERED: MULTIVITAMIN -ADULT INJECTION 10 ML, THIAMINE INJection 100 MG, FOLIC ACID 1 MG in NS (... IV ONE (20:00)
[2024-09-02] MEDS ORDERED: THIAMINE 100 MG TAB PO SCH (21:00)
[2024-09-02] MEDS ORDERED: traZODone 100 MG TAB PO SCH (21:00)
[2024-09-03] MEDS ORDERED: PANTOPRAZOLE 40MG VIAL IV SCH (09:00)
[2024-09-03] MEDS ORDERED: FOLIC ACID 1 MG TAB PO SCH (09:00)
[2024-09-03] MEDS ORDERED: MULTIVITAMINS/MINERALS THERAP 1 TAB PO SCH (09:00)
== END 2024-09-02 18:00 | disposition left against medical advice (07) | DRG 770 ==
LOC: M ED 10:41 → M ED INP 16:45
PROVIDERS: ADMIT Family Medicine; ATTEND Family Medicine
DX: F10.229 Alcohol dependence with intoxication, unspecified (principal); K22.6 Gastro-esophageal laceration-hemorrhage syndrome; K76.0 Fatty (change of) liver, not elsewhere classified; G47.00 Insomnia, unspecified; F41.9 Anxiety disorder, unspecified; Z90.49 Acquired absence of other specified parts of digestive tract; R79.89 Other specified abnormal findings of blood chemistry; Z79.899 Other long term (current) drug therapy

== ENCOUNTER 2024-09-19 23:29 | Emergency (ER) | payer BC ==
[~2024-09-19] VITALS: Ht 165.1 cm; Wt 81.8 kg
[2024-09-19 23:52] VITALS: TEMP 98.2
[2024-09-20 00:36] LABS: VENOUS BASE EXCESS -2.3 (-2.0-2.0); VENOUS HCO3 22.2 MMOL/L (23.0-27.0); VENOUS O2 SATURATION 96.7 % (60.0-80.0); VENOUS PARTIAL PRESSURE CO2 37.7 mmHg (38.0-50.0); VENOUS PARTIAL PRESSURE O2 96.5 mmHg (30.0-50.0); VENOUS PH 7.388 UNITS (7.330-7.430); VENOUS STANDARD HCO3 22.5 MMOL/L; VENOUS TOTAL CO2 23.4 MMOL/L (24.0-28.0)
[2024-09-20] MEDS: ONDANSETRON 4MG 2ML VIAL IV ONE (00:39)
[2024-09-20 00:48] LABS: BASO # 0.1 10^3/uL (0.0-0.2); BASO % 1.0 % (0.0-1.0); EOS # 0.0 10^3/uL (0.0-0.5); EOS % 0.5 % (0.0-3.0); LYMPH # 2.0 10^3/uL (1.5-5.0); LYMPH % 23.6 % (24.0-44.0); MONO # 0.5 10^3/uL (0.0-0.8); MONO % 6.1 % (2.0-8.0); NEUTROPHILS # 5.7 10^3/uL (1.5-8.5); NEUTROPHILS % 68.4 % (36.0-66.0); PLATELET COUNT, AUTOMATED 339 10^3/uL (150-450)
[2024-09-20 01:00] VITALS: O2SAT 97
[2024-09-20 01:08] VITALS: BP 120/80
[2024-09-20 01:24] LABS: ALT/SGPT 83 U/L (7.0-40); AST/SGOT 64 U/L (<34); CALCIUM LEVEL 9.3 MG/DL (8.5-10.1); CARBON DIOXIDE LEVEL 24 MMOL/L (20-31); CHLORIDE LEVEL 104 MMOL/L (98-107); CREATININE FOR GFR 0.56 MG/DL (0.55-1.30); GLOMERULAR FILTRATION RATE > 90.0 (>60); MAGNESIUM LEVEL 1.6 MG/DL (1.8-2.4); PHOSPHORUS LEVEL 5.6 MG/DL (2.5-4.9); POTASSIUM SERUM 4.6 MMOL/L (3.5-5.1); SODIUM LEVEL 143 MMOL/L (136-145)
== END 2024-09-20 01:10 | disposition left against medical advice (07) ==
LOC: M ED 23:46
DX: F44.5 Conversion disorder with seizures or convulsions (principal); F10.129 Alcohol abuse with intoxication, unspecified; Z53.9 Procedure and treatment not carried out, unspecified reason; F41.1 Generalized anxiety disorder
CPT/HCPCS: 80048; 80076; 82077; 82140; 82330; 82803; 83605; 83735; 84100; 85025; 93041; 94760; 96374; 99284; J2405

== ENCOUNTER 2024-09-21 19:01 | Emergency (ER) | payer BC ==
[~2024-09-21] VITALS: Ht 167.6 cm; Wt 89.1 kg
[2024-09-21 19:15] VITALS: TEMP 97.7
[2024-09-21 19:37] LABS: VENOUS BASE EXCESS -2.5 (-2.0-2.0); VENOUS HCO3 23.1 MMOL/L (23.0-27.0); VENOUS O2 SATURATION 98.8 % (60.0-80.0); VENOUS PARTIAL PRESSURE CO2 42.7 mmHg (38.0-50.0); VENOUS PARTIAL PRESSURE O2 186.4 mmHg (30.0-50.0); VENOUS PH 7.351 UNITS (7.330-7.430); VENOUS STANDARD HCO3 22.5 MMOL/L; VENOUS TOTAL CO2 24.4 MMOL/L (24.0-28.0)
[2024-09-21 19:41] LABS: BASO # 0.1 10^3/uL (0.0-0.2); BASO % 1.1 % (0.0-1.0); EOS # 0.1 10^3/uL (0.0-0.5); EOS % 1.2 % (0.0-3.0); LYMPH # 2.9 10^3/uL (1.5-5.0); LYMPH % 38.3 % (24.0-44.0); MONO # 0.5 10^3/uL (0.0-0.8); MONO % 6.8 % (2.0-8.0); NEUTROPHILS # 4.0 10^3/uL (1.5-8.5); NEUTROPHILS % 52.5 % (36.0-66.0); PLATELET COUNT, AUTOMATED 312 10^3/uL (150-450)
[2024-09-21 20:08] LABS: ALT/SGPT 65 U/L (7.0-40); AST/SGOT 50 U/L (<34); CALCIUM LEVEL 8.6 MG/DL (8.5-10.1); CARBON DIOXIDE LEVEL 25 MMOL/L (20-31); CHLORIDE LEVEL 106 MMOL/L (98-107); CREATININE FOR GFR 0.68 MG/DL (0.55-1.30); GLOMERULAR FILTRATION RATE > 90.0 (>60); MAGNESIUM LEVEL 1.8 MG/DL (1.8-2.4); PHOSPHORUS LEVEL 5.2 MG/DL (2.5-4.9); POTASSIUM SERUM 3.7 MMOL/L (3.5-5.1); SODIUM LEVEL 145 MMOL/L (136-145)
[2024-09-21] MEDS: NS (Normal Saline) 0.9% 1,000 ML IV ONE (20:10)
[2024-09-21 20:28] LABS: ETHYL ALCOHOL (ETHANOL) 0.357 % (0.000-0.010)
[2024-09-21 23:39] VITALS: O2SAT 94
[2024-09-22] VITALS: BP 107/64
== END 2024-09-22 00:08 | disposition home or self-care (01) ==
LOC: M ED 19:01 → EDBD 19:01 → M ED 09-22 00:08
DX: F10.129 Alcohol abuse with intoxication, unspecified (principal); F41.9 Anxiety disorder, unspecified; Z79.899 Other long term (current) drug therapy

== ENCOUNTER 2024-09-23 17:54 | Emergency (ER) | payer BC | END 2024-09-23 19:00 | disposition left against medical advice (07) | LOC: M ED 17:54 | DX: Z53.21 Procedure and treatment not carried out due to patient leaving prior to being seen by health care provider (principal) ==

== ENCOUNTER 2024-09-28 08:20 | Emergency (ER) | payer BC ==
[~2024-09-28] VITALS: Ht 165.1 cm; Wt 81.8 kg
[2024-09-28 08:37] VITALS: TEMP 98.7
[2024-09-28] MEDS: NS (Normal Saline) 0.9% 1,000 ML IV ONE ×2 (08:58→11:43)
[2024-09-28 09:13] LABS: BASO # 0.0 10^3/uL (0.0-0.2); BASO % 0.4 % (0.0-1.0); EOS # 0.0 10^3/uL (0.0-0.5); EOS % 0.2 % (0.0-3.0); LYMPH # 1.0 10^3/uL (1.5-5.0); LYMPH % 9.8 % (24.0-44.0); MONO # 0.5 10^3/uL (0.0-0.8); MONO % 4.8 % (2.0-8.0); NEUTROPHILS # 8.6 10^3/uL (1.5-8.5); NEUTROPHILS % 84.6 % (36.0-66.0); PLATELET COUNT, AUTOMATED 146 10^3/uL (150-450)
[2024-09-28 09:32] LABS: ETHYL ALCOHOL (ETHANOL) 0.010 % (0.000-0.010)
[2024-09-28 09:34] LABS: ALT/SGPT 56 U/L (7.0-40); AST/SGOT 74 U/L (<34); CALCIUM LEVEL 8.4 MG/DL (8.5-10.1); CARBON DIOXIDE LEVEL 21 MMOL/L (20-31); CHLORIDE LEVEL 103 MMOL/L (98-107); CREATININE FOR GFR 0.62 MG/DL (0.55-1.30); GLOMERULAR FILTRATION RATE > 90.0 (>60); MAGNESIUM LEVEL 1.3 MG/DL (1.8-2.4); POTASSIUM SERUM 3.3 MMOL/L (3.5-5.1); SALICYLATE LEVEL < 3.0 MG/DL (<30); SODIUM LEVEL 143 MMOL/L (136-145)
[2024-09-28 09:37] LABS: CPK CREATINE PHOSPHOKINASE 198 U/L (34-145)
[2024-09-28 11:28] LABS: AMPHETAMINES LEVEL URINE NEGATIVE (NEGATIVE); BARBITURATES URINE NEGATIVE (NEGATIVE); BENZODIAZEPINES URINE NEGATIVE (NEGATIVE); COCAINE METABOLITE URINE NEGATIVE (NEGATIVE)
[2024-09-28 11:29] LABS: CANNABINOIDS URINE NEGATIVE (NEGATIVE); METHADONE URINE NEGATIVE (NEGATIVE); OPIATES URINE NEGATIVE (NEGATIVE); PHENCYCLIDINE URINE NEGATIVE (NEGATIVE)
[2024-09-28] MEDS: MULTIVITAMINS/MINERALS THERAP 1 TAB PO SCH (11:42)
[2024-09-28] MEDS: THIAMINE 100 MG TAB PO SCH (11:42)
[2024-09-28] MEDS: POTASSIUM CHLORIDE 10MEQ SR TABLET PO ONE (11:43)
[2024-09-28] MEDS: FOLIC ACID 1 MG TAB PO SCH (11:47)
[2024-09-28 13:40] VITALS: BP 128/77; O2SAT 97
[2024-09-28] MEDS ORDERED: POTA-298 PO (14:00)
[2024-09-28] MEDS ORDERED: MAGN400T35 PO (14:00)
[2024-09-28] MEDS: MAGNESIUM OXIDE 400 MG TAB PO ONE (14:06)
[2024-09-28] MEDS: LORazepam 1 MG TAB PO STA (14:06)
[2024-09-28] MEDS ORDERED: OXAZ15CA4 PO (14:09)
== END 2024-09-28 14:43 | disposition home or self-care (01) ==
LOC: M ED 08:20 → EDBD 08:20 → M ED 14:43
DX: F10.130 Alcohol abuse with withdrawal, uncomplicated (principal); E87.6 Hypokalemia; E83.42 Hypomagnesemia; G47.00 Insomnia, unspecified; F41.9 Anxiety disorder, unspecified
CPT/HCPCS: 36415; 71045; 80048; 80076; 80143; 80307; 82077; 82550; 83605; 83735; 84443; 85025; 93005; 93041; 94760; 96374; 99285; J2060

== ENCOUNTER 2024-10-28 17:09 | Emergency (ER) | payer BC ==
[~2024-10-28 17:09] MED LIST changes: -IBUP-1022 PO; +IBUP600T42 PO; +MAGN400T35 PO; +POTA-298 PO
[2024-10-28 17:26] VITALS: TEMP 97
[2024-10-28 18:22] LABS: BASO # 0.1 10^3/uL (0.0-0.2); BASO % 1.3 % (0.0-1.0); EOS # 0.1 10^3/uL (0.0-0.5); EOS % 2.0 % (0.0-3.0); LYMPH # 3.6 10^3/uL (1.5-5.0); LYMPH % 59.5 % (24.0-44.0); MONO # 0.5 10^3/uL (0.0-0.8); MONO % 8.5 % (2.0-8.0); NEUTROPHILS # 1.7 10^3/uL (1.5-8.5); NEUTROPHILS % 28.2 % (36.0-66.0); PLATELET COUNT, AUTOMATED 178 10^3/uL (150-450)
[2024-10-28 18:23] LABS: AMPHETAMINES LEVEL URINE NEGATIVE (NEGATIVE); BARBITURATES URINE NEGATIVE (NEGATIVE)
[2024-10-28 18:24] LABS: BENZODIAZEPINES URINE NEGATIVE (NEGATIVE); CANNABINOIDS URINE NEGATIVE (NEGATIVE); COCAINE METABOLITE URINE NEGATIVE (NEGATIVE); METHADONE URINE NEGATIVE (NEGATIVE); OPIATES URINE NEGATIVE (NEGATIVE); PHENCYCLIDINE URINE NEGATIVE (NEGATIVE)
[2024-10-28 18:29] LABS: CALCIUM LEVEL 8.5 MG/DL (8.5-10.1); CARBON DIOXIDE LEVEL 27 MMOL/L (20-31); CHLORIDE LEVEL 108 MMOL/L (98-107); CREATININE FOR GFR 0.78 MG/DL (0.55-1.30); GLOMERULAR FILTRATION RATE > 90.0 (>60); POTASSIUM SERUM 3.8 MMOL/L (3.5-5.1); SALICYLATE LEVEL < 3.0 MG/DL (<30); SODIUM LEVEL 149 MMOL/L (136-145)
[2024-10-28 18:44] LABS: ETHYL ALCOHOL (ETHANOL) 0.482 % (0.000-0.010)
[2024-10-28 20:00] VITALS: BP 100/59
[2024-10-28 20:09] VITALS: O2SAT 91
== END 2024-10-28 21:45 | disposition left against medical advice (07) ==
LOC: M ED 17:09 → EDBD 17:09 → M ED 21:45
DX: F10.129 Alcohol abuse with intoxication, unspecified (principal); Z79.83 Long term (current) use of bisphosphonates; Z79.899 Other long term (current) drug therapy; Z53.9 Procedure and treatment not carried out, unspecified reason

== ENCOUNTER → 2024-11-05 | Outpatient (CLI) | payer OTHER | LOC: M OUTALCOH 07:57 | PROVIDERS: ATTEND Psychiatry & Neurology Psychiatry | DX: F10.20 Alcohol dependence, uncomplicated (principal) ==

== ENCOUNTER → 2024-12-14 | Outpatient (RCR) | payer OTHER | LOC: M OUTALCOH 11-14 08:12 | PROVIDERS: ATTEND Psychiatry & Neurology Psychiatry | DX: F10.20 Alcohol dependence, uncomplicated (principal) ==

== ENCOUNTER 2025-01-09 10:42 | Outpatient (RCR) | payer MEDICAID, OTHER | END 2025-01-13 | LOC: M OUTALCOH 10:42 | PROVIDERS: ATTEND Psychiatry & Neurology Psychiatry | DX: F10.20 Alcohol dependence, uncomplicated (principal) ==

== ENCOUNTER 2025-01-17 09:49 | Emergency (ER) | payer MEDICAID ==
[~2025-01-17] VITALS: Ht 165.1 cm; Wt 88.6 kg
[2025-01-17] MEDS: OXAZEPAM 15MG CAP PO ONE (10:18)
[2025-01-17 10:44] VITALS: TEMP 97.6
[2025-01-17 11:04] LABS: PLATELET COUNT, AUTOMATED 285 10^3/uL (150-450)
[2025-01-17 11:20] LABS: HCG, SERUM QUALITATIVE NEGATIVE (NEGATIVE)
[2025-01-17 11:28] LABS: ALT/SGPT 17 U/L (7.0-40); AST/SGOT 29 U/L (<34); CALCIUM LEVEL 8.3 MG/DL (8.5-10.1); CARBON DIOXIDE LEVEL 21 MMOL/L (20-31); CHLORIDE LEVEL 105 MMOL/L (98-107); CREATININE FOR GFR 0.56 MG/DL (0.55-1.30); GLOMERULAR FILTRATION RATE > 90.0 (>60); POTASSIUM SERUM 4.0 MMOL/L (3.5-5.1); SODIUM LEVEL 145 MMOL/L (136-145)
[2025-01-17 11:37] LABS: ETHYL ALCOHOL (ETHANOL) 0.418 % (0.000-0.010)
[2025-01-17 11:59] LABS: AMPHETAMINES LEVEL URINE NEGATIVE (NEGATIVE); BARBITURATES URINE NEGATIVE (NEGATIVE); BENZODIAZEPINES URINE NEGATIVE (NEGATIVE); COCAINE METABOLITE URINE NEGATIVE (NEGATIVE)
[2025-01-17] MEDS ORDERED: OXAZ15CA4 PO (11:59)
[2025-01-17 12:00] VITALS: BP 126/86; O2SAT 94
[2025-01-17 12:00] LABS: CANNABINOIDS URINE NEGATIVE (NEGATIVE); METHADONE URINE NEGATIVE (NEGATIVE); OPIATES URINE NEGATIVE (NEGATIVE); PHENCYCLIDINE URINE NEGATIVE (NEGATIVE)
== END 2025-01-17 12:25 | disposition home or self-care (01) ==
LOC: M ED 09:49 → EDBD 09:49 → M ED 12:25
DX: F10.20 Alcohol dependence, uncomplicated (principal); I51.9 Heart disease, unspecified; Z86.19 Personal history of other infectious and parasitic diseases; F17.200 Nicotine dependence, unspecified, uncomplicated

== ENCOUNTER → 2025-02-13 | Outpatient (RCR) | payer MEDICAID | LOC: M OUTALCOH 01-24 08:24 | PROVIDERS: ATTEND Psychiatry & Neurology Psychiatry | DX: F10.20 Alcohol dependence, uncomplicated (principal) ==